=== PATIENT | male | born 1970 | race Caucasian/White ===

== ENCOUNTER 2018-04-25 14:09 | Inpatient (IN) | payer MEDICAID ==
[~2018-04-25] VITALS: Ht 177.8 cm; Wt 94.8 kg
[~2018-04-25 14:09] MED LIST: FLUO-201 PO; HYDR-4228 PO; HYDR50CA48 PO; MULT-893 PO; NIC10R INH; VENL75CA58 PO
--- NOTE | 2018-04-25 14:29 | ER Report ---
History and Physical Time Seen By MD: 14:29 Hx. of Stated Complaint: CONSTIPATION FOR 5 DAYS. N/V. NO HOME REMEDIES. HPI/ROS CHIEF COMPLAINT: No bowel movement for 5 days, abdominal pain and vomiting HISTORY OF PRESENT ILLNESS: This is a 47-year-old male. He came to the ER today because he has not had a bowel movement for 5 days. Prior to this his bowel movements had been normal until 2 days before the problem started he started having some diarrhea/liquid stools, and then bowel movements stopped 5 days ago. He is also not passing gas. His abdomen is distended. He is having constant hiccups. He has had a partial colectomy from Stage 4 colon cancer and has been cancer free for the last 6 years. He does have a chronic area of his abdomen that "pooches" out since his previous surgery. REVIEW OF SYSTEMS: Constitutional: No fever or chills. Cardiovascular: No chest pain. Respiratory: No shortness of breath. Genitourinary: No dysuria. No frequency Musculoskeletal: No musculoskeletal pain Skin: No rashes. Neurological: No numbness. Feels weak generally, no focal. Allergies: Coded Allergies: No Known Drug Allergies (Unverified , 02/11/17) Home Meds Reported Medications Venlafaxine Hcl (EFFEXOR XR) 75 Mg Cap.er.24h, 300 MG PO QDAY 02/11/17 Discontinued Reported Medications Nicotine (NICOTROL) 10 Mg/Inh Ctr, 10 MG INH Q2H Y for NICOTINE REPLACEMENT 02/21/17 Multivitamin (MULTIVITAMINS) 1 Each Tab.chew, 1 EACH PO DAILY, TAB.CHEW 02/21/17 Hydroxyzine Pamoate (HYDROXYZINE PAMOATE) 50 Mg Capsule, 100 MG PO DAILY, CAPSULE 02/11/17 Reviewed Nurses Notes: Yes Hx Smoking: Yes Smoking Status: Current: Every Day Smoker, Heavy Tobacco Smoker Exposure to Second Hand Smoke?: Yes Hx Substance Use Disorder: Yes Hx Alcohol Use: Yes Constitutional Vital Sign - Last 24 Hours 04/25/18 04/25/18 04/25/18 04/25/18 14:13 15:09 15:30 16:00 Temp 97.8 Pulse 113 102 101 Resp 18 B/P (MAP) 121/98 131/102 (112) 126/84 (98) 136/96 (109) Pulse Ox 97 90 93 04/25/18 04/25/18 04/25/18 16:30 17:00 17:30 Pulse 103 106 105 B/P (MAP) 128/94 (105) 128/98 (108) 121/90 (100) Pulse Ox 93 93 93 Physical Exam General Appearance: The patient is alert. He is in acute distress due to pain. Eyes: Pupils are equal, round. No pallor, injection or icterus. ENT: Mucous membranes are moist. Normal oral mucosa. Posterior oropharynx is normal. Neck: Supple and non tender. Respiratory: Lungs are clear to auscultation. Cardiovascular: Regular rate and rhythm. No murmurs, gallops or rubs. Normal capillary refill. Gastrointestinal: Abdomen is tender throughout, soft, but very distended. Abdominal wall hernias to the right of midline. Guarding, but no rebound noted. Hypoactive bowel sounds. Neurological: Alert and oriented x3. Skin: Warm and dry. No rashes. DIFFERENTIAL DIAGNOSIS: After history and physical exam, differential diagnosis was considered for abdominal pain with bloating, most consistent with L obstruction but would consider other bowel pathology including but not limited to constipation, gastroenteritis, colitis or other problem. Medical Decision Making Data Points Result Diagram: 04/26/18 0533 04/26/18 0533 Laboratory Hematology Test 04/25/18 14:50 Peripheral Blood Smear Yes Y/N Amylase Level 90 U/L (0-110) Lipase 278 U/L (23-300) Chemistry Test 04/25/18 14:50 Peripheral Blood Smear Yes Y/N Amylase Level 90 U/L (0-110) Lipase 278 U/L (23-300) EKG/Imaging Imaging ACUTE ABDOMEN SERIES 3 VIEW Indication: no bowel movement, distended, vomiting Comparison: None. Findings: The lungs are clear. Heart size and pulmonary vasculature are normal. There is abnormal distended loops of small bowel in the abdomen, greatest in the left upper quadrant. There is no free air. There are surgical clips overlying the abdomen. Bones are normal. IMPRESSION: 1. Dilated air-filled loops of small bowel, consistent with a small bowel obstruction. 2. No evidence of free air or perforation. 2. Clear lungs. Report Dictated By: Ho Lopez at 04/25/2018 3:48 PM EXAMINATION: CT abdomen without IV contrast CT pelvis without IV contrast HISTORY: Abdominal pain, suspect obstruction. History of colon cancer. COMPARISON: PET/CT from 04/28/2017 and abdominal radiographs from 04/25/2018. TECHNIQUE: Axial images were taken through the abdomen and pelvis without intravenous contrast. Sagittal and coronal reformatted images are also submitted. One of the following dose optimization techniques was utilized in the performance of this exam: Automated exposure control; adjustment of the mA and/ or kV according to the patient's size; or use of an iterative reconstruction technique. Specific details can be referenced in the facility's radiology CT exam operational policy. FINDINGS: Please note that without intravenous contrast, sensitivity to detection of parenchymal disease is limited. Liver/biliary: Numerous simple appearing hepatic cysts are similar to prior exam , the largest measuring 8.7 cm. Pancreas: Negative. Spleen: Negative. Adrenal glands: Negative. Kidneys: Small simple appearing bilateral renal cysts. Pelvic structures: Negative. Bowel: Postoperative changes of partial colectomy with several surgical clips in the left paracolic gutter. The stomach is mildly distended with fluid. There is progressive distention of small bowel loops from the proximal jejunum to the mid ileum. The small bowel loops contain fluid with multiple air-fluid levels. There is focal narrowing of a mid small bowel loop in the peritoneal compartment , deep to the larger ventral hernia (axial image 320 series 3). The small bowel loops distal to this point are also dilated, with a dilated loop entering the larger ventral hernia. There is no transition point at the neck of the hernia. The distal small bowel loops are decompressed. The colon is not distended. Peritoneum/retroperitoneum/mesenteries: Negative. Vessels: Atherosclerotic calcifications of the aorta and bilateral common iliac arteries. Musculoskeletal/body wall: Chronic compression fractures at T11, L1 and L4. There are 2 supraumbilical ventral abdominal wall hernias. The 1st hernia is smaller and more superior with the neck measuring 3.5 cm, and contains a nondilated small bowel loop. The larger hernia is eccentric to the right and has a neck measuring 7.5 cm, and contains dilated small bowel loops. Small amount of fluid below the small bowel loops in the larger ventral hernia. Lymph nodes: Negative. Lower chest: Negative. IMPRESSION: 1. Acute small bowel obstruction with focal narrowing of a mid small bowel loop deep to the larger, more inferior ventral hernia. Small bowel loops distal to the focal narrowing are also dilated, which could indicate obstruction due to an internal hernia. 2. Ventral abdominal wall hernias containing small bowel as described above. 3. Several simple hepatic cysts and renal cysts are unchanged. 4. Chronic compression fractures of T11, L1 and L4. These findings were discussed with DUANE MERINO at 04/25/2018 4:37 PM. Report Dictated By: Kassidy Quevedo MD at 04/25/2018 4:17 PM ED Course/Re-evaluation Clinical Indication for ER IV: Hydration, IV Access ED Course Initial abdominal series shows dilated loops of bowel, uncertain where these are. CT scan of the abdomen showed transition point at one of the ventral abdominal hernias in the small bowel with small bowel obstruction. Reviewed this with the patient and called and spoke with Dr. Mercado who came to the ER and evaluated the patient and will be admitting him. NG tube was placed. Patient had good pain relief with 4 mg of IV morphine. Decision to Disposition Date: Apr 25, 2018 Decision to Disposition Time: 17:00 Depart Departure Latest Vital Signs Vital Signs Date Time Temp Pulse Resp B/P (MAP) Pulse Ox O2 Delivery O2 Flow Rate FiO2 04/25/18 17:30 105 121/90 (100) 93 04/25/18 14:13 97.8 18 Impression: Primary Impression: SBO (small bowel obstruction) Condition: Condition Unchanged Disposition: Admitted from ER DUANE MERINO MD Apr 25, 2018 14:29
[2018-04-25] MEDS ORDERED: ONDANSETRON 4 MG/2 ML VIAL IVP ONE (14:40)
[2018-04-25] MEDS ORDERED: NS(*) 0.9% 1000 ML BAG 1,000 ML IV ONE (14:40)
[2018-04-25 14:58] LABS: PLATELET COUNT, AUTOMATED 483 K/uL (150-450)
[2018-04-25] MEDS ORDERED: MORPHINE 4 MG/ML SDV IVP ONE (15:05)
--- NOTE | 2018-04-25 15:54 | RADIOLOGY IMAGING REPORT ---
FACILITY: [facility] [place] PATIENT NAME: Cosmo Sarabia : 1970 MR: [id number] V: [id number] EXAM DATE: [id number] ORDERING PHYSICIAN: DUANE MERINO TECHNOLOGIST: Location: [facility] - [place], [place] Patient: Cosmo Sarabia : 1970 Visit/Account:[id number] Date of Sevice: 04/25/2018 ACUTE ABDOMEN SERIES 3 VIEW Indication: no bowel movement, distended, vomiting Comparison: None. Findings: The lungs are clear. Heart size and pulmonary vasculature are normal. There is abnormal distended loops of small bowel in the abdomen, greatest in the left upper quadrant. There is no free air. There are surgical clips overlying the abdomen. Bones are normal. IMPRESSION: 1. Dilated air-filled loops of small bowel, consistent with a small bowel obstruction. 2. No evidence of free air or perforation. 2. Clear lungs. Report Dictated By: Ho Lopez at 04/25/2018 3:48 PM Report E-Signed By: Ho Lopez at 04/25/2018 3:49 PM WSN:[id number]
--- NOTE | 2018-04-25 16:47 | RADIOLOGY IMAGING REPORT ---
FACILITY: [facility] [place] PATIENT NAME: Cosmo Sarabia : 1970 MR: [id number] V: [id number] EXAM DATE: [id number] ORDERING PHYSICIAN: DUANE MERINO TECHNOLOGIST: Location: [facility] - [place] Patient: Cosmo Sarabia : 1970 Visit/Account:[id number] Date of Sevice: 04/25/2018 EXAMINATION: CT abdomen without IV contrast CT pelvis without IV contrast HISTORY: Abdominal pain, suspect obstruction. History of colon cancer. COMPARISON: PET/CT from 04/28/2017 and abdominal radiographs from 04/25/2018. TECHNIQUE: Axial images were taken through the abdomen and pelvis without intravenous contrast. Sag ittal and coronal reformatted images are also submitted. One of the following dose optimization techniques was utilized in the performance of this exam: Autom ated exposure control; adjustment of the mA and/or kV according to the patient's size; or use of an i terative reconstruction technique. Specific details can be referenced in the facility's radiology C T exam operational policy. FINDINGS: Please note that without intravenous contrast, sensitivity to detection of parenchymal disease is jones ited. Liver/biliary: Numerous simple appearing hepatic cysts are similar to prior exam, the largest measuri ng 8.7 cm. Pancreas: Negative. Spleen: Negative. Adrenal glands: Negative. Kidneys: Small simple appearing bilateral renal cysts. Pelvic structures: Negative. Bowel: Postoperative changes of partial colectomy with several surgical clips in the left paracolic g utter. The stomach is mildly distended with fluid. There is progressive distention of small bowel loo ps from the proximal jejunum to the mid ileum. The small bowel loops contain fluid with multiple air- fluid levels. There is focal narrowing of a mid small bowel loop in the peritoneal compartment, deep to the larger ventral hernia (axial image 320 series 3). The small bowel loops distal to this point a re also dilated, with a dilated loop entering the larger ventral hernia. There is no transition point at the neck of the hernia. The distal small bowel loops are decompressed. The colon is not distended . Peritoneum/retroperitoneum/mesenteries: Negative. Vessels: Atherosclerotic calcifications of the aorta and bilateral common iliac arteries. Musculoskeletal/body wall: Chronic compression fractures at T11, L1 and L4. There are 2 supraumbilica l ventral abdominal wall hernias. The 1st hernia is smaller and more superior with the neck measuring 3.5 cm, and contains a nondilated small bowel loop. The larger hernia is eccentric to the right and has a neck measuring 7.5 cm, and contains dilated small bowel loops. Small amount of fluid below the small bowel loops in the larger ventral hernia. Lymph nodes: Negative. Lower chest: Negative. IMPRESSION: 1. Acute small bowel obstruction with focal narrowing of a mid small bowel loop deep to the larger, m ore inferior ventral hernia. Small bowel loops distal to the focal narrowing are also dilated, which could indicate obstruction due to an internal hernia. 2. Ventral abdominal wall hernias containing small bowel as described above. 3. Several simple hepatic cysts and renal cysts are unchanged. 4. Chronic compression fractures of T11, L1 and L4. These findings were discussed with DUANE MERINO at 04/25/2018 4:37 PM. Report Dictated By: Kassidy Quevedo MD at 04/25/2018 4:17 PM Report E-Signed By: Kassidy Quevedo MD at 04/25/2018 4:44 PM WSN:[id number]
[2018-04-25] MEDS ORDERED: ONDANSETRON 4 MG/2 ML VIAL IVP PRN (17:30)
[2018-04-25] MEDS ORDERED: KETOROLAC 30 MG/ML VIAL IVP PRN (17:30)
[2018-04-25] MEDS ORDERED: FLUSH 10 ML SYR IVP PRN (17:30)
[2018-04-25 18:14] VITALS: BP 135/105
--- NOTE | 2018-04-25 18:44 | RADIOLOGY IMAGING REPORT ---
FACILITY: [facility] [place] PATIENT NAME: Cosmo Sarabia : 1970 MR: [id number] V: [id number] EXAM DATE: [id number] ORDERING PHYSICIAN: DUANE MERINO TECHNOLOGIST: Location: [facility] - [place] Patient: Cosmo Sarabia : 1970 Visit/Account:[id number] Date of Sevice: 04/25/2018 Exam: KUB SINGLE VIEW ABDOMEN Indication: s/p NG placement, RAD Comparison: 04/25/2018 Findings: A nasogastric tube has been placed with catheter tip near the gastric fundus. There are persistently dilated loops of small bowel present within the left upper quadrant. Gas and s tool is seen within the colon. IMPRESSION: 1. Nasogastric tube placement within the stomach. Report Dictated By: Baltazar Palma at 04/25/2018 6:39 PM Report E-Signed By: Baltazar Palma at 04/25/2018 6:40 PM WSN:[id number]
[2018-04-25] MEDS: NS(*) 0.9% 1000 ML BAG 1,000 ML IV PRN (18:59)
--- NOTE | 2018-04-25 19:49 | Gen Surgery History & Physical ---
History of Present Illness Chief Complaint Nausea and vomiting History of Present Illness 47-year-old gentleman presents to the emergency room with a for 5 days of abdominal distention with nausea and vomiting. No flatus or bowel movements in the last 4 days. He has a history of colon cancer, he says stage IV colon cancer but when I reviewed the oncologist noted looks more like stage III with a synchronous colon cancer. I don't see any evidence of metastatic disease. His cancer was treated 6 years ago and he reports that he has been in remission since. He has not had any other abdominal surgeries other than his colon resection 6 years ago. The cancer was involving his transverse and sigmoid colons. CT scan in the emergency room was consistent with a small bowel obstruction. He has no previous history of small bowel obstructions. Incidentally noted was several ventral hernias adjacent to each other in the abdominal midline. The inferior most one is the largest. It is suggested on the CT that this may be potentially the cause of the obstruction. History Problems: (1) Colon cancer Status: Resolved (2) Depression Status: Chronic (3) Adjustment disorder with depressed mood Status: Chronic Home Meds Reported Medications Venlafaxine Hcl (EFFEXOR XR) 75 Mg Cap.er.24h, 300 MG PO QDAY 02/11/17 Discontinued Reported Medications Nicotine (NICOTROL) 10 Mg/Inh Ctr, 10 MG INH Q2H Y for NICOTINE REPLACEMENT 02/21/17 Multivitamin (MULTIVITAMINS) 1 Each Tab.chew, 1 EACH PO DAILY, TAB.CHEW 02/21/17 Hydroxyzine Pamoate (HYDROXYZINE PAMOATE) 50 Mg Capsule, 100 MG PO DAILY, CAPSULE 02/11/17 Allergies: Coded Allergies: No Known Drug Allergies (Unverified , 02/11/17) Review of Systems All Systems Reviewed/Normal: Yes, Except as Noted Gastrointestinal: Nausea, Vomiting, Abdominal Pain Exam General Appearance: Alert, Awake, No Acute Distress, Afebrile Neuro: No Gross deficits Eyes: PERRLA GI: Other (his abdomen is distended. I can palpate the largest hernia and I'm able to reduce the contents of the hernia with little problems. He has a well- healed midline vertical incision as well as an incision in his left mid abdomen that is also well healed. No peritoneal signs. No palpable mass.) Extremities: Warm, Perfused Medical Decision Making Data Points Result Diagram: 04/25/18 1450 04/25/18 1450 Assessment and Plan Problems: (1) SBO (small bowel obstruction) Status: Acute Assessment & Plan: 04/25/18: This is his 1st small bowel obstruction. The ventral/incisional hernia is reducible so if this was the cause of the obstruction, he should improve fairly rapidly. Adhesions are also a strong possibility given his history of colon resection for colon cancer. We will start managing this conservatively with NG tube decompression and bowel rest as well as IV fluids. He seems to be very dehydrated based on his labs and so we' ll resuscitate him with crystalloid. If he fails to improve after 48-72 hours then he may need surgical exploration. I have explained this plan to him in great detail and he seems to understand and seems agreeable with this plan. We' ll start Lovenox for DVT prophylaxis and Protonix for GI prophylaxis. We will use intermittent Dilaudid as well as when necessary IV Tylenol and Toradol for pain control. Condition Stable Time Spent: < 30 min Venous Thromboembolism VTE Risk Physician Assess for VTE Risk: Yes Patient's VTE Risk: Low VTE Diagnostic Test 2 Days Prior to Admit: No Antithrombotics Is Pt On Any Antithrombotics?: No BEATRIZ FERNANDEZ MD Apr 25, 2018 19:49
[2018-04-25 19:57] VITALS: BP 131/101
[2018-04-25] MEDS ORDERED: LR(*) 1000 ML BAG 1,000 ML IV ONE (22:35)
[2018-04-25 23:47] VITALS: BP 121/91
[2018-04-26 03:02] VITALS: BP 127/93
[2018-04-26] MEDS: NS(*) 0.9% 1000 ML BAG 1,000 ML IV PRN (05:47)
[2018-04-26 05:52] LABS: PLATELET COUNT, AUTOMATED 344 K/uL (150-450)
[2018-04-26] MEDS ORDERED: NS(*) 0.9% 1000 ML BAG 1,000 ML IV PRN (06:34)
--- NOTE | 2018-04-26 07:01 | General Surgery Progress Note ---
Subjective Progress Notes Subjective Feeling better. No pain currently. Main complaint is hiccups. Physical Exam Vital Signs Date Time Temp Pulse Resp B/P (MAP) Pulse Ox O2 Delivery O2 Flow Rate FiO2 04/26/18 03:02 97.9 91 16 127/93 (104) 91 Room Air General Appearance: Alert, Awake, No Acute Distress, Afebrile GI: Soft and Non-Tender (Hernia is soft and reducible) Extremities: Warm, Perfused Result Diagram: 04/26/18 0533 04/26/18 0533 Assessment and Plan Problems: (1) SBO (small bowel obstruction) Status: Acute Assessment & Plan: 04/25/18: This is his 1st small bowel obstruction. The ventral/incisional hernia is reducible so if this was the cause of the obstruction, he should improve fairly rapidly. Adhesions are also a strong possibility given his history of colon resection for colon cancer. We will start managing this conservatively with NG tube decompression and bowel rest as well as IV fluids. He seems to be very dehydrated based on his labs and so we' ll resuscitate him with crystalloid. If he fails to improve after 48-72 hours then he may need surgical exploration. I have explained this plan to him in great detail and he seems to understand and seems agreeable with this plan. We' ll start Lovenox for DVT prophylaxis and Protonix for GI prophylaxis. We will use intermittent Dilaudid as well as when necessary IV Tylenol and Toradol for pain control. 04/26/18: Doing better clinically. No flatus or BM yet. KUB unchanged. Continue resuscitation, bowel rest and decompression, IV fluids. Pain control, pulmonary hygiene, lovenox, PPI. Condition Stable. Time Spent: < 30 min Exam Sepsis Risk: Severe Sepsis Risk BEATRIZ FERNANDEZ MD Apr 26, 2018 07:01
--- NOTE | 2018-04-26 07:04 | RADIOLOGY IMAGING REPORT ---
FACILITY: [facility] PATIENT NAME: Cosmo Sarabia : 1970 MR: [id number] V: [id number] EXAM DATE: ORDERING PHYSICIAN: BEATRIZ FERNANDEZ TECHNOLOGIST: Location: [facility] - [place] Patient: Cosmo Sarabia : 1970 Visit/Account:[id number] Date of Sevice: 04/26/2018 KUB SINGLE VIEW ABDOMEN COMPARISONS: Views of the abdomen dated April 25, 2018 ADDITIONAL PERTINENT HISTORY: Small bowel obstruction. FINDINGS: Lung bases: Negative. Supine evidence of free air: None. Bowel gas pattern: Continued dilated loops of bowel in the left upper quadrant. Continued presence of an NG tube with its tip in the proximal portion of the stomach. Surrounding soft tissues and solid organs: Negative. Osseous structures: Negative. IMPRESSION: No significant change since previous exam with continued dilated loops of bowel in the l eft upper quadrant. Report Dictated By: Riaz Herr MD at 04/26/2018 6:59 AM Report E-Signed By: Riaz Herr MD at 04/26/2018 7:01 AM WSN:[id number]
[2018-04-26 07:39] VITALS: BP 130/83
[2018-04-26] MEDS: ENOXAPARIN 40 MG/0.4ML SYR SC SCH (08:25)
[2018-04-26] MEDS: KCL/DNS 20 MEQ/1000 ML PREMIX 1,000 ML IV SCH ×3 (08:26→21:00)
[2018-04-26] MEDS: PANTOPRAZOLE SOD 40 MG IV VIAL IVP SCH (08:26)
--- NOTE | 2018-04-26 10:50 | Medical Nutrition Therapy ---
Nutrition Anthropometrics Height (Inches): 70.00 Height (Calculated Centimeters: 177.527042 Weight (Pounds): 194 Weight (Calculated Kilograms): 88.110 Abram Nutrition Score: Adequate Abram Nutrition Risk Score: 18 Dietary Referral Nutrition Risk Factors: Nutrition Risk Comment: Physical Findings Physical Appearance: Overweight BMI 25-29 Skin Appearance Skin Appearance: Edema Edema Location Modifier: Edema Location: Type of Edema: Degree of Edema: Gastrointestinal Symptoms GI Symtoms: Bloating, Change in Bowel Pattern Tube Present: NG Bowel Sounds: Recent Bowel Pattern: Constipated Stool Characteristics: Nutritional Diagnosis Nutritional Risk Acuity 1: GI Obstruction Past Medical History: Colon CA Nutritional Acuity: 1-High Nutrition Diagnosis: Altered GI Function Nutrition Etiology: Physiological Causes Nutrition Problem/Etiology/Sym: AEB SBO Energy Requirement: 2280 (M- St jeor) Protein Requirement: 88 (1gm/kg) Fluid Requirement: 2640 (30ml/kg) Diet Type: NPO (Nothing by Mouth) Nutrition Intervention: Incr diet as tolerated Nutrition Monitoring & Eval Nutrition Goals: Eat 75-100% Meal RD Patient Assessment Time: [address] Assessment Type: RD Assessment Patient Nutrition Acuity: 1-High Follow Up Date: Apr 28, 2018 Nutritional Comment: 04/26 Pt currently NPo for SBO. Pt recieving NG suction. No flatus or bowel sounds at this time. reports pt is dehydrated. Pt cont elevated H/H, BUN, creatinine. Alb WNR at 4.6. Recommend nutrition support if NPO > 3 days. SIM TORRES Apr 26, 2018 10:50
[2018-04-26 11:05] VITALS: BP 125/80
[2018-04-26 14:45] VITALS: BP 122/69
[2018-04-26 19:19] VITALS: BP 124/68
[2018-04-26 23:39] VITALS: BP 117/65
[2018-04-27 02:37] VITALS: BP 114/73
[2018-04-27 05:59] LABS: PLATELET COUNT, AUTOMATED 266 K/uL (150-450)
--- NOTE | 2018-04-27 06:27 | RADIOLOGY IMAGING REPORT ---
[place] [facility] [place] Cosmo Sarabia : 1970 MR: [id number] V: [id number] EXAM DATE: [id number] ORDERING PHYSICIAN: BEATRIZ FERNANDEZ TECHNOLOGIST: Location: [facility] Patient: Cosmo Sarabia : 1970 Visit/Account:[id number] Date of Sevice: 04/27/2018 KUB SINGLE VIEW ABDOMEN COMPARISONS: Views of the abdomen dated April 26, 2018 ADDITIONAL PERTINENT HISTORY: Small bowel obstruction FINDINGS: Lung bases: Not imaged. Supine evidence of free air: None. Bowel gas pattern: Interval removal of an NG tube. Improved but persistent dilated loops of bowel in the midabdomen. Surrounding soft tissues and solid organs: Surgical clips involving the left midabdomen and lower abd omen along the midline. Osseous structures: Negative. IMPRESSION: 1. Findings compatible with an improving small bowel obstruction. Report Dictated By: Riaz Herr MD at 04/27/2018 6:22 AM Report E-Signed By: Riaz Herr MD at 04/27/2018 6:23 AM WSN:[id number]
--- NOTE | 2018-04-27 06:52 | General Surgery Progress Note ---
Subjective Progress Notes Subjective Feeling better. Passed "a little" flatus overnight. No pain. No N/V. Physical Exam Vital Signs Date Time Temp Pulse Resp B/P (MAP) Pulse Ox O2 Delivery O2 Flow Rate FiO2 04/27/18 02:37 79 16 114/73 (87) 93 Room Air 04/26/18 19:19 97.7 General Appearance: Alert, Awake, No Acute Distress, Afebrile GI: Soft and Non-Tender (Mildly distended, incisional hernia is soft and easily reducible) Extremities: Warm, Perfused Result Diagram: 04/27/18 0544 04/27/18 0544 Assessment and Plan Problems: (1) SBO (small bowel obstruction) Status: Acute Assessment & Plan: 04/25/18: This is his 1st small bowel obstruction. The ventral/incisional hernia is reducible so if this was the cause of the obstruction, he should improve fairly rapidly. Adhesions are also a strong possibility given his history of colon resection for colon cancer. We will start managing this conservatively with NG tube decompression and bowel rest as well as IV fluids. He seems to be very dehydrated based on his labs and so we' ll resuscitate him with crystalloid. If he fails to improve after 48-72 hours then he may need surgical exploration. I have explained this plan to him in great detail and he seems to understand and seems agreeable with this plan. We' ll start Lovenox for DVT prophylaxis and Protonix for GI prophylaxis. We will use intermittent Dilaudid as well as when necessary IV Tylenol and Toradol for pain control. 04/26/18: Doing better clinically. No flatus or BM yet. KUB unchanged. Continue resuscitation, bowel rest and decompression, IV fluids. Pain control, pulmonary hygiene, lovenox, PPI. 04/27/18: Seems to be improving. KUB with improving but still dilated loops of small bowel. Will get a water soluble SBFT today. NG tube removed last night at patient request after warning him that it may have to be replaced if his obstruction worsens. Continue bowel rest, IV fluids, etc. Condition Stable. Time Spent: < 30 min Exam Sepsis Risk: No Definite Risk BEATRIZ FERNANDEZ MD Apr 27, 2018 06:52
[2018-04-27] MEDS: KCL (*) 20 MEQ/100 ML PREMIX 100 ML IV SCH ×2 (07:02→10:40)
[2018-04-27 07:03] VITALS: BP 107/59
[2018-04-27] MEDS ORDERED: DIATRIZOATE MEGL/DIATRIZOA SOD 120 ML SOLN PO ONE (08:10)
[2018-04-27] MEDS: ENOXAPARIN 40 MG/0.4ML SYR SC SCH (08:37)
[2018-04-27] MEDS: VENLAFAXINE XR 75 MG CAPCR PO SCH (08:37)
[2018-04-27] MEDS: PANTOPRAZOLE SOD 40 MG IV VIAL IVP SCH (08:37)
[2018-04-27] MEDS: KCL/DNS 20 MEQ/1000 ML PREMIX 1,000 ML IV SCH ×2 (09:41→17:39)
[2018-04-27 10:41] VITALS: BP 138/84
[2018-04-27] MEDS: HYDROmorphone HCL 2 MG/ML SDV IVP PRN ×2 (13:22→21:13)
[2018-04-27 15:34] VITALS: BP 140/88
[2018-04-27 19:11] VITALS: BP 142/97
--- NOTE | 2018-04-27 19:59 | RADIOLOGY IMAGING REPORT ---
FACILITY: [facility] [place] PATIENT NAME: Cosmo Sarabia : 1970 MR: [id number] V: [id number] EXAM DATE: [id number] ORDERING PHYSICIAN: BEATRIZ FERNANDEZ TECHNOLOGIST: Location: [facility] Patient: Cosmo Sarabia : 1970 Visit/Account:[id number] Date of Sevice: 04/27/2018 Exam: SMALL BOWEL SERIES Indication: SBO, water soluble contrast only please, RAD Comparison: CT 04/25/2018 Findings: 240 mL of Gastrografin was given orally and images obtained at 15 minutes, 1 hour, 4 hours and 8.5 hours Findings are consistent with persistent high-grade partial small bowel obstruction likely within the mid ileum. There are moderately to severe dilated loops of small bowel measuring upwards of 5 to 6 cm in diameter. There is no opacification of the colon but gas is present. There is no evidence of pneu moperitoneum.. IMPRESSION: 1. Findings are consistent with persistent high-grade partial small bowel obstruction. Significantly dilated loops of small bowel are noted throughout the abdomen measuring upwards of 5 to 6 cm in diam eter. Some gas is noted within the colon. Report Dictated By: Baltazar Palma at 04/27/2018 7:51 PM Report E-Signed By: Baltazar Palma at 04/27/2018 7:56 PM WSN:[id number]
[2018-04-27 23:06] VITALS: BP 152/98
[2018-04-28] VITALS (54 sets, daily range): BP systolic 73–176; BP diastolic 48–115
[2018-04-28] MEDS: PROMETHAZINE 25 MG/ML 1 ML AMP IVP PRN ×2 (01:20→10:22)
[2018-04-28] MEDS: KCL/DNS 20 MEQ/1000 ML PREMIX 1,000 ML IV SCH ×3 (02:20→22:09)
[2018-04-28] MEDS: HYDROmorphone HCL 2 MG/ML SDV IVP PRN (02:54)
[2018-04-28 05:43] LABS: PLATELET COUNT, AUTOMATED 306 K/uL (150-450)
--- NOTE | 2018-04-28 06:23 | RADIOLOGY IMAGING REPORT ---
FACILITY: [facility] PATIENT NAME: Cosmo Sarabia : 1970 MR: [id number] V: [id number] EXAM DATE: ORDERING PHYSICIAN: BEATRIZ FERNADNEZ TECHNOLOGIST: Location: [facility] [place] Patient: Cosmo Sarabia : 1970 Visit/Account:[id number] Date of Sevice: 04/28/2018 KUB SINGLE VIEW ABDOMEN COMPARISONS: Single view of the abdomen dated April 27, 2018 ADDITIONAL PERTINENT HISTORY: Small bowel obstruction FINDINGS: Lung bases: Not imaged Supine evidence of free air: None. Bowel gas pattern: Continued dilated loops of small bowel in the upper abdomen minimally decreased in size from previous exam. Surrounding soft tissues and solid organs: Surgical clips over the mid abdomen. Osseous structures: Negative. IMPRESSION: 1. Minimal decrease in size of dilated loops of small bowel again consistent with an underlying small bowel obstruction. 2. No other new findings from previous exam. Report Dictated By: Riaz Herr MD at 04/28/2018 6:17 AM Report E-Signed By: Riaz Herr MD at 04/28/2018 6:18 AM [id number]
--- NOTE | 2018-04-28 07:27 | General Surgery Progress Note ---
Subjective Progress Notes Subjective Abdominal pain and bloating. Emesis x2 overnight. No flatus or BMs, even after water-soluble SBFT yesterday. Physical Exam Vital Signs Date Time Temp Pulse Resp B/P (MAP) Pulse Ox O2 Delivery O2 Flow Rate FiO2 04/28/18 04:47 75 22 90 Oxy Mask 2.5 04/28/18 03:18 98.3 General Appearance: Alert, Awake, No Acute Distress, Afebrile Neuro: No Gross deficits Eyes: PERRLA GI: Other (soft, very distended, hernia soft but protruding. Diffuse abdominal TTP. No peritoneal signs.) Extremities: Warm, Perfused Result Diagram: 04/28/1851804/28/18518 Assessment and Plan Problems: (1) SBO (small bowel obstruction) Status: Acute Assessment & Plan: 04/25/18: This is his 1st small bowel obstruction. The ventral/incisional hernia is reducible so if this was the cause of the obstruction, he should improve fairly rapidly. Adhesions are also a strong possibility given his history of colon resection for colon cancer. We will start managing this conservatively with NG tube decompression and bowel rest as well as IV fluids. He seems to be very dehydrated based on his labs and so we' ll resuscitate him with crystalloid. If he fails to improve after 48-72 hours then he may need surgical exploration. I have explained this plan to him in great detail and he seems to understand and seems agreeable with this plan. We' ll start Lovenox for DVT prophylaxis and Protonix for GI prophylaxis. We will use intermittent Dilaudid as well as when necessary IV Tylenol and Toradol for pain control. 04/26/18: Doing better clinically. No flatus or BM yet. KUB unchanged. Continue resuscitation, bowel rest and decompression, IV fluids. Pain control, pulmonary hygiene, lovenox, PPI. 04/27/18: Seems to be improving. KUB with improving but still dilated loops of small bowel. Will get a water soluble SBFT today. NG tube removed last night at patient request after warning him that it may have to be replaced if his obstruction worsens. Continue bowel rest, IV fluids, etc. 04/28/18: No improvement, worse since SBFT. Contrast has not passed obstruction. Will proceed with ex-lap today to look for cause of obstruction and treat it. Will also need to address the hernia(s) and how I do this depends on whether bowel resection is necessary. I have explained surgery, alternatives, risks, recovery to the patient and his questions have been answered. He would like to proceed with surgery. Will place central line as well so we can start TPN postop. Condition Stable. Time Spent: < 30 min Exam Sepsis Risk: Sepsis Risk BEATRIZ FERNANDEZ MD Apr 28, 2018 07:27
[2018-04-28] MEDS: VENLAFAXINE XR 75 MG CAPCR PO SCH (08:28)
[2018-04-28] MEDS: ENOXAPARIN 40 MG/0.4ML SYR SC SCH (08:29)
[2018-04-28] MEDS: PANTOPRAZOLE SOD 40 MG IV VIAL IVP SCH (08:29)
[2018-04-28] MEDS ORDERED: NORMOSOL R SOLN(*) 1000 ML BAG 1,000 ML IV ONE (09:25)
--- NOTE | 2018-04-28 12:47 | Medical Nutrition Therapy ---
Nutrition Anthropometrics Height (Inches): 70.00 Height (Calculated Centimeters: 177.796654 Weight (Pounds): 198 Weight (Calculated Kilograms): 89.925 BMI: 28.4 Abram Nutrition Score: Adequate Abram Nutrition Risk Score: 20 Dietary Referral Nutrition Risk Factors: Nutrition Risk Comment: Physical Findings Physical Appearance: Overweight BMI 25-29 Skin Appearance Skin Appearance: Edema Edema Location Modifier: Edema Location: Type of Edema: Degree of Edema: Gastrointestinal Symptoms GI Symtoms: Nausea, Vomiting, Bloating, Change in Bowel Pattern Tube Present: Bowel Sounds: Recent Bowel Pattern: Constipated Stool Characteristics: Nutritional Diagnosis Nutritional Risk Acuity 1: GI Obstruction Past Medical History: Colon CA Nutritional Acuity: 1-High Nutrition Diagnosis: Altered GI Function Nutrition Etiology: Physiological Causes Nutrition Problem/Etiology/Sym: AEB SBO Energy Requirement: 2280 (M- St jeor) Protein Requirement: 88 (1gm/kg) Fluid Requirement: 2640 (30ml/kg) Diet Type: NPO (Nothing by Mouth) Nutrition Intervention: Incr diet as tolerated Nutritional Support Current Enteral / Parental: TPN Rate: 75 ml/hr Clinimex 5% AA / 20% Dex plus 250 ml lipids Current Duration: 24 Current Calories: 1584 Current Protein: 90 Current Lipids Calories: 500 Total Current Calories: 2084 Recommended Enteral / Parental: TPN Recommended Rate: 80 ml/hr Clinimex 5% AA / 20% Dex plus 250 ml lipids Recommended Duration: 24 Recommended Calories: 1690 Recommended Protein: 96 Recommended Lipids Calories: 500 Total Recommended Calories: 2190 Nutrition Monitoring & Eval RD Patient Assessment Time: [address] Assessment Type: RD Assessment Patient Nutrition Acuity: 1-High Follow Up Date: Apr 29, 2018 Nutritional Comment: 04/26 Pt currently NPo for SBO. Pt recieving NG suction. No flatus or bowel sounds at this time. Dr reports pt is dehydrated. Pt cont elevated H/H, BUN, creatinine. Alb WNR at 4.6. Recommend nutrition support if NPO > 3 days. 04/28 Pt has agreed to surgery per note. Bowel function indicates hypoactive, no flatus and very distended - SOB not resolved. Pt to start TPN this afternoon following procedure. Current rate Clinimex 5/15% 75ml/hr which will provide 91% kcal and 98% protein needs. Recommend changing to Clinimex 5/15% 83ml/hr to provide 100% kcal and 113% protein needs. Labs indicate very low K 2.9, Glucose 160 down from 237. BUN 34. Will monitor TPN and labs for any changes. - BRENDA CHARLES Apr 28, 2018 12:44
[2018-04-28] MEDS ORDERED: LIDOCAINE/SOD BICARB 8.4% SYR ID ONE (13:50)
[2018-04-28] MEDS ORDERED: ROPIVACAINE 0.5% 20 ML VIAL ONE (14:45)
[2018-04-28] MEDS ORDERED: DEXAMETHASONE SOD PHOS 10MG/ML ONE (14:49)
[2018-04-28] MEDS ORDERED: ROCURONIUM BROM 10 MG/ML 10 ML ONE (14:49)
[2018-04-28] MEDS ORDERED: SUCCINYLCHOL CHL 200MG/10ML VL ONE (14:49)
[2018-04-28] MEDS ORDERED: PROPOFOL EMUL(*) 10MG/ML 20 ML 40 ML ONE (14:49)
[2018-04-28] MEDS ORDERED: ONDANSETRON 4 MG/2 ML VIAL ONE (14:49)
[2018-04-28] MEDS ORDERED: fentaNYL CITR 250 MCG/5 ML AMP ONE (14:50)
[2018-04-28] MEDS ORDERED: AMPICILLIN/SULBACT (*) 3 GM VL 3 GM in NS(*) 0.9% 100 ML BAG 100 ML IVPB ONE (14:50)
[2018-04-28] MEDS ORDERED: GELATIN SPONGE SZ 100 ONE (17:52)
[2018-04-28] MEDS ORDERED: CELLULOSE HEMOSTAT 1 EACH PKT OP-SITE ONE ×2 (17:55→17:58)
[2018-04-28] MEDS ORDERED: FLUSH 10 ML SYR IVP PRN (19:45)
[2018-04-28] MEDS ORDERED: MIDAZOLAM 50 MG/10 ML VIAL 100 MG in NS(*) 0.9% 100 ML BAG 80 ML IV PRN (19:47)
[2018-04-28] MEDS ORDERED: [UNRECOGNIZED DRUG - OTHER] IV ONE (20:00)
[2018-04-28] MEDS ORDERED: NS(*) 0.9% 1000 ML BAG 1,000 ML ONE (20:06)
--- NOTE | 2018-04-28 20:18 | Hospitalist Consultation ---
History of Present Illness Requesting Physician Dr. Calderón Reason for Consult Manage ventilator, ICU Chief Complaint Abdominal pain/SBO History of Present Illness The patient is a 47 year old male admitted on 04/25 with abdominal pain. He was found to have a small bowel obstruction. He failed conservative treatment and was taken to the OR today. During intubation the patient apparently vomited bile and aspirated. Dr. Calderón then performed a bronchoscopy to clean out the aspirated materials. An exploratory laparotomy was then performed with adhesion lysis, liver biopsy and abdominal hernia repair. The patient was brought to the ICU intubated for observation overnight due to his episode of aspiration. 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 (4) Colon cancer Status: Resolved (5) Depression Status: Chronic (6) SBO (small bowel obstruction) Status: Acute Home Meds Reported Medications Venlafaxine Hcl (EFFEXOR XR) 75 Mg Cap.er.24h, 300 MG PO QDAY 02/11/17 Discontinued Reported Medications Nicotine (NICOTROL) 10 Mg/Inh Ctr, 10 MG INH Q2H Y for NICOTINE REPLACEMENT 02/21/17 Multivitamin (MULTIVITAMINS) 1 Each Tab.chew, 1 EACH PO DAILY, TAB.CHEW 02/21/17 Hydroxyzine Pamoate (HYDROXYZINE PAMOATE) 50 Mg Capsule, 100 MG PO DAILY, CAPSULE 02/11/17 Allergies: Coded Allergies: No Known Drug Allergies (Unverified , 02/11/17) Other Social/Family Hx The patient is single. He uses a Vape pen, drinks alcohol and occasionally smokes marijuana. He is disabled. Hx Smoking: Yes (States he uses a "vape pen") Smoking Status: Current: Every Day Smoker, Heavy Tobacco Smoker Exposure to Second Hand Smoke?: Yes Caffeine Intake: Coffee, Soda Caffeine/Cups Per Day: 6+ Hx Alcohol Use: Yes Hx Substance Use Disorder: Yes Social Drug Use: Occasional Social Drugs: Marijuana Amount Of Social Drug/s Used: Uses occasionally to help with anxiety Review of Systems Other Unable to do ROS as patient intubated and sedated. Exam Vital Signs Vital Signs Date Time Temp Pulse Resp B/P (MAP) Pulse Ox O2 Delivery O2 Flow Rate FiO2 04/28/18 11:23 98.3 97 16 144/99 (114) 84 Oxy Mask 2.0 General Appearance: Other (Intubated, sedated.) Neuro: Other (Sedated. Moves all 4 exremeties) Cardiovascular: Other (Tachy, regular.) Respiratory: Other (Tachypneic. Coarse breath sounds without rhonchi or significant wheezing.) GI: Other (Abdomen with central surgical wound with dressing in place. BS +.) Extremities: Warm, Perfused, Other (No edema.) Integumentary: Other (Midline abdominal surgical wound.) Psych: Other (Sedated.) Medical Decision Making Data Points Result Diagram: 04/28/1851804/28/18518 EKG / Imaging Monitor Interpretation: Sinus Tachycardia Imaging Per Dr. Calderón, post op CXR shows ET tube and central line to be appropriately positioned. Pre-Admit Course Medical Record Review: Yes Assessment and Plan Problems: (1) SBO (small bowel obstruction) Status: Acute Assessment & Plan: S/P exploratory laparotomy with adhesion lysis, liver biopsy and abdominal hernia repair. Will keep him sedated and ventilated in ICU. Currently on the vent, SIMV at 14 BPM with PEEP of 5 and PS of 10. TV is 500. Will check ABGs and adjust vent as needed. He is on propofol and Versed for sedation. (2) Depression Status: Chronic Assessment & Plan: The patient has been on Effexor XR which is currently held due to SBO/surgery. 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 (4) Colon cancer Status: Resolved Assessment & Plan: Resolved. He did have liver nodules noted during the exploratory lap and a liver biopsy was done. Time Spent on Plan of Care: < 30 min Venous Thromboembolism Antithrombotics Is Pt On Any Antithrombotics?: No Exam Sepsis Risk: No Definite Risk YOANA SALVADOR MD Apr 28, 2018 20:17
--- NOTE | 2018-04-28 20:22 | RADIOLOGY IMAGING REPORT ---
FACILITY: [facility] PATIENT NAME: Cosmo Sarabia : 1970 MR: [id number] V: [id number] EXAM DATE: ORDERING PHYSICIAN: YOANA SALVADOR TECHNOLOGIST: Location: [facility] Patient: Cosmo Sarabia : 1970 Visit/Account:[id number] Date of Sevice: 04/28/2018 CHEST SINGLE AP INDICATION: Intubated COMPARISON: None available FINDINGS: Heart size within normal limits. Endotracheal tube terminates at the thoracic inlet. Right-sided IJ c entral line terminates at the atrial caval junction. There is a left lower lobe consolidation present . Patchy atelectasis versus consolidation is present at the right lung base. There is no pneumothorax or pleural effusion. IMPRESSION: 1. Large consolidation involving left lower lobe and small consolidation involving the right lower lo be. 2. Endotracheal tube and central line are properly positioned Report Dictated By: Baltazar Palma at 04/28/2018 8:17 PM Report E-Signed By: Baltazar Palma at 04/28/2018 8:18 PM WSN:[id number]
--- NOTE | 2018-04-28 20:41 | Post Operative Progress Note ---
Post Operative Progress Note Date: Apr 28, 2018 Time: 20:15 Surgeon: Stephane Dictation number: [id number] Anesthesia: GETA by Dr. Duran Pre-Op Diagnosis: Small Bowel Obstruction Post-Op Diagnosis: MARLENA Aspiration Findings: Pt vomited after induction before intubation. Not much bile in airways on bronchoscopy. Transition point in mid-small bowel due to adhesive band and small bowel stricture Multiple abdominal wall hernias Procedure(s): 1) Bronchoscopy 2) Central line placement in right IJ 3) Exploratory laparotomy 4) Adhesiolysis 5) Small bowel resection with reanastomosis 6) Liver wedge biopsy 7) Unroofing of liver cyst 8) Repair of multiple abdominal wall hernias, without mesh Specimen Removed:(May be N/A): Small bowel Complications: None Fluids: 3L of crystalloid UOP: 1L Estimated Blood Loss: 50mL Date OP Note Dictated: Apr 28, 2018 Time OP Note Dictated: 20:21 BEATRIZ FERNANDEZ MD Apr 28, 2018 20:41
[2018-04-28] MEDS ORDERED: NS(*) 0.9% 500 ML BAG 500 ML ONE (20:53)
--- NOTE | 2018-04-28 21:45 | OPERATIVE REPORT 1 ---
EVENT DATE: April 28, 2018 SURGEON: River Calderón MD ANESTHESIOLOGIST: Umer Duran MD ANESTHESIA: General endotracheal anesthesia. PREOPERATIVE DIAGNOSIS Persistent small-bowel obstruction. POSTOPERATIVE DIAGNOSIS Persistent small-bowel obstruction. PROCEDURES PERFORMED 1. Bronchoscopy. 2. Central line placement in right internal jugular. 3. Exploratory laparotomy. 4. Adhesiolysis. 5. Small bowel resection with reanastomosis. 6. Primary repair of multiple abdominal wall hernias without mesh. 7. Liver wedge biopsy. 8. Liver cyst unroofing. COMPLICATIONS None. CONDITION Stable. BLOOD LOSS 18 mL URINE OUTPUT 1 L INTRAVENOUS FLUIDS Crystalloid 3 L. SPECIMENS Small bowel. INDICATIONS This is a 47-year-old gentleman with a previous history of stage III colon cancer with apparently two synchronous colon cancers. They were resected, and then he underwent chemotherapy and has apparently been in remission. He has been doing well up until about four days prior to admission when he started experiencing increased abdominal pain, abdominal bloating, nausea, and vomiting. This brought him into the ER where he was found to have a small- bowel obstruction. I admitted him to my service. I managed him conservatively with NG tube decompression and bowel rest, as well as IV fluids and pain control. He seemed to get better, although his KUB still revealed dilated small bowel loops. He was demanding to have his NG tube removed, and so two days ago, I removed the NG tube. Yesterday, he underwent a small bowel follow- through which revealed evidence apparent to be a high-grade small-bowel obstruction, and so I gave him overnight, and he still did not pass the contrast. This morning, he was no better, and so I consented him for an exploratory laparotomy to address his small-bowel obstruction. I also told him that I would like to put a central line in so we can start parenteral nutrition , and he agreed with that as well. DESCRIPTION OF PROCEDURE The patient was brought to the operating room and placed supine on the operating table. RSI intubation was planned due to his bowel obstruction, but just after induction, but prior to intubation, he vomited several hundred milliliters of bilious fluid. The anesthesiologist worked very hard to suction out his mouth and airway and quickly got him intubated. At this point, I went ahead and performed a bronchoscopy. I looked at all of his airways on both the right and the left, mainly the secondary and tertiary bronchi, and I copiously irrigated out his airways with sterile water, and all of this was suctioned out. There was very little bile in the airways, and that which I did see was easily suctioned out. I again irrigated out his airways. The bronchoscope was withdrawn, and then I proceeded to place a right internal jugular vein central line using standard sterile Seldinger technique. This was completed also using the ultrasound to identify the internal jugular vein, and it was completed without any problems. His abdomen was then prepped and draped in a sterile fashion, and another timeout was completed, which had already been completed prior to bronchoscopy and central line placement. I then made a vertical midline incision to the left of the umbilicus from just below the umbilicus to the epigastrium. I dissected through the dermis and into the subcutaneous fat using electrocautery until I identified the midline fascia. He had several abdominal wall hernias that were seen on the CT scan. I had reduced these after he was asleep to minimize risk of bowel injury. Getting into the abdomen after the incision was made was somewhat challenging as there were a lot of adhesions in the midline. I did slowly make my way through the midline fascia and was ultimately able to safely get in the abdomen without bowel injury. There were a lot of adhesions to the midline, and these were taken down until I broke into free peritoneal cavity lateral to the midline adhesions. There were not a lot of abdominal wall adhesions lateral to midline, but there were quite a few interloop adhesions. Once I had all the adhesions cleared away, I ran the bowel from the ligament of Treitz distally until I encountered a transition point which was a thick, dense adhesive band going to the posterior abdominal cavity, and this was easily divided. At this point, I saw succus coming out of a hole in the small bowel adjacent to this band. I am not sure where this came from. There were no obvious intestinal injuries during the dissection at all. I do not know if the adhesive band somehow was adherent to the small bowel. The area around the hole in the small bowel was whitish in color and almost looked like what you would see with an anterior duodenal or gastric ulcer. We were quick to suction out the ulcer and isolate the small bowel loop and these bowel clamps to prevent further enteric contamination. I then identified healthy-appearing bowel proximal and distal to this and then made holes in the mesentery in this area and used the CAMDEN 75 mm stapler with blue loads and divided the bowel proximal and distal to this. I used the Harmonic scalpel to then divide the mesentery between the divided bowel and then passed the specimen off the field. I then laid the bowel side by side so it was in a side- to-side functional end-to-end type of anastomosis. I made an enterotomy on both sides and then used the CAMDEN 75 mm stapler with a blue load and created the [id number] anastomosis. I closed the conjoined enterotomy with an inner layer of running 4-0 Monocryl sutures. I then oversewed the entire suture and staple line with interrupted 3-0 Vicryl Lembert-type sutures. I closed the mesenteric defect with running 3-0 Vicryl sutures. I then copiously irrigated the entire abdomen in all quadrants with 5 L of warm saline. I made sure I removed all the saline from each quadrant. As I was putting my hand over the liver and palpating the liver, it felt very nodular. In fact, there were tiny little nodules that were suspicious to me to be liver seeds of possibly metastatic disease given this patient's history of colon cancer. I then proceeded to remove a small wedge of liver to send to Pathology. This confirmed the presence of metastatic disease. The patient had a large liver cyst just under the surface, and this fluid was being evacuated from the cyst in the process of performing the wedge biopsy. I then unroofed the cyst to allow it to continue to drain. There was some bleeding from the liver edge which was controlled with cautery, and then I packed the cyst with Gelfoam and then covered the top of this with Surgicel to coat the edges of the divided liver and then covered this with Magda hemostatic powder. It was completely hemostatic when this was finished. At this point, happy with how everything looked and reinspecting the anastomosis which laid in a very natural position without tension and with good blood flow, I then milked all of the enteric contents back up to the stomach, and we suctioned about with the NG tube. We had evacuated 3 L of enteric and gastric contents during the surgery. I then turned my attention to the abdominal wall and identified the three most pertinent hernias, including the large one just to the right of midline. I pulled in the peritoneum and removed the peritoneum from these, that is, the hernia sacs from these hernias. I then on the two smaller ones closed them with 0 Prolene sutures. The biggest one I incorporated in the midline closure. I closed the midline with a running #1 Prolene suture. It closed without any problems. I made very small bites so as to distribute the tension over many suture throes. I then irrigated and dried the midline wound and then closed the skin with lalo. I placed a Prevena VAC dressing over this. We attempted to awaken the patient, and he was really breathing pretty good through the endotracheal tube without any PEEP or pressure support, but he would not wake up enough to respond to commands, and so we elected to go ahead and re-sedate him, bring him into the Intensive Care Unit, and give him overnight to wake up. He otherwise physiologically tolerated the procedure without any problems. CONNOR
[2018-04-28] MEDS: AMPICILLIN/SULBACT (*) 3 GM VL 3 GM in NS(*) 0.9% 100 ML BAG 100 ML IVPB SCH (22:07)
[2018-04-28] MEDS: PROPOFOL(*)1000 MG/100 ML VIAL 100 ML IV PRN ×2 (22:08→23:33)
[2018-04-28] MEDS: FAT EMULSION 20% 250 ML BAG 250 ML IVPB SCH (22:09)
[2018-04-28] MEDS: NS(*) 0.9% 500 ML BAG 500 ML IV PRN (23:44)
[2018-04-28] MEDS: ORAL SUCTION/CHLORHX/SWAB KIT MT SCH (23:47)
[2018-04-29] VITALS (95 sets, daily range): BP systolic 78–108; BP diastolic 47–71
[2018-04-29] MEDS: AMPICILLIN/SULBACT (*) 3 GM VL 3 GM in NS(*) 0.9% 100 ML BAG 100 ML IVPB SCH ×4 (03:09→20:52)
[2018-04-29] MEDS ORDERED: IV BOLUS 500 ML IVSOL IV ONE ×2 (03:20→06:30)
[2018-04-29] MEDS: KCL/DNS 20 MEQ/1000 ML PREMIX 1,000 ML IV SCH ×2 (04:31→13:07)
[2018-04-29] MEDS: HYDROmorphone HCL 2 MG/ML SDV IVP PRN ×4 (04:31→23:33)
[2018-04-29] MEDS: PROPOFOL(*)1000 MG/100 ML VIAL 100 ML IV PRN (04:31)
[2018-04-29] MEDS: NS(*) 0.9% 500 ML BAG 500 ML IV PRN ×2 (04:31→17:31)
[2018-04-29 05:38] LABS: PLATELET COUNT, AUTOMATED 196 K/uL (150-450)
[2018-04-29] MEDS ORDERED: NS(*) 0.9% 1000 ML BAG 1,000 ML IV ONE (06:35)
--- NOTE | 2018-04-29 07:07 | RADIOLOGY IMAGING REPORT ---
FACILITY: [facility] [place] PATIENT NAME: Cosmo Sarabia : 1970 MR: [id number] V: [id number] EXAM DATE: ORDERING PHYSICIAN: BEATRIZ FERNANDEZ TECHNOLOGIST: Location: [facility] Patient: Cosmo Sarabia : 1970 Visit/Account:[id number] Date of Sevice: 04/29/2018 CHEST SINGLE AP Additional pertinent History: Intubated COMPARISON STUDIES: 04/28/2018 FINDINGS: Support lines and catheters: ET tube reidentified 6 cm from the emiliano. Right IJ in the mid SVC. EKG wire leads Lungs and Pleura: Persistent unchanged patchy infiltrative change in the right lower lung. Distinct improvement in what had been a greater degree of parenchymal opacity in the left lower lung. Heart and vasculature: Negative. Muriel and Mediastinum: Negative. Bones and Chest wall: Negative. Upper Abdomen: Negative. IMPRESSION: 1. Stable right lower lung parenchymal opacity. Distinct improvement in the degree of opacity in left lower lung. Stable catheters and tubes Report Dictated By: Myron Day MD at 04/29/2018 7:01 AM Report E-Signed By: Myron Day MD at 04/29/2018 7:04 AM [id number]
--- NOTE | 2018-04-29 07:53 | Hospitalist Progress Note ---
Subjective Progress Notes Subjective Sedated on ventilator. BPs have been on low side. RR now in high 20s. Physical Exam Vital Signs Date Time Temp Pulse Resp B/P (MAP) Pulse Ox O2 Delivery O2 Flow Rate FiO2 04/29/18 07:38 50.0 04/29/18 07:30 107 28 87/57 (67) 96 04/29/18 07:15 Mechanical Ventilator 04/29/18 06:15 100.0 04/28/18 11:23 2.0 General Appearance: Other (sedated on ventilator) Cardiovascular: Other (slightly tachycardic) Respiratory: Other (scattered coarse breath sounds bilaterally) Result Diagram: 04/29/18 0515 04/29/18 0515 Monitor Interpretation: Sinus Tachycardia Assessment and Plan Problems: (1) SBO (small bowel obstruction) Status: Acute Assessment & Plan: S/P exploratory laparotomy with adhesion lysis, liver biopsy and abdominal hernia repair. He is currently sedated and on ventilator in ICU. Will increase TV and pressure support slightly. Will check ABG in ~1 hour and adjust ventilator further as needed. He is on propofol and Versed for sedation, but has had some hypotension, which seems to be exacerbated by the propofol. Will try to wean off the propofol and increase the Versed as needed. (2) Depression Status: Chronic Assessment & Plan: The patient has been on Effexor XR which is currently held due to SBO/surgery. 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 (4) Colon cancer Status: Resolved Assessment & Plan: Resolved. He did have liver nodules noted during the exploratory lap and a liver biopsy was done. (5) Elevated glucose Status: Acute Assessment & Plan: Will adjust insulin in TPN (or use SQ SSI). Exam Sepsis Risk: Sepsis Risk MARA SALVADOR MD Apr 29, 2018 07:53
[2018-04-29] MEDS: PANTOPRAZOLE SOD 40 MG IV VIAL IVP SCH (08:58)
[2018-04-29] MEDS: ENOXAPARIN 40 MG/0.4ML SYR SC SCH (08:59)
[2018-04-29] MEDS: ORAL SUCTION/CHLORHX/SWAB KIT MT SCH ×2 (09:00→20:52)
[2018-04-29] MEDS ORDERED: LR(*) 1000 ML BAG 1,000 ML IV ONE (09:35)
--- NOTE | 2018-04-29 09:38 | General Surgery Progress Note ---
Subjective Progress Notes Subjective Intubated/sedated Physical Exam Vital Signs Date Time Temp Pulse Resp B/P (MAP) Pulse Ox O2 Delivery O2 Flow Rate FiO2 04/29/18 09:15 95 Mechanical Ventilator 50.0 04/29/18 08:49 100.4 04/29/18 08:00 107 04/29/18 07:46 28 04/29/18 07:30 87/57 (67) 04/28/18 11:23 2.0 General Appearance: Other (Intubated/sedated) GI: Other (Soft, prevena vac dressing is in place with good seal.) Extremities: Warm, Perfused Result Diagram: 04/29/18 0515 04/29/18 0515 Monitor Interpretation: Sinus Tachycardia Assessment and Plan Problems: (1) SBO (small bowel obstruction) Status: Acute Assessment & Plan: 04/25/18: This is his 1st small bowel obstruction. The ventral/incisional hernia is reducible so if this was the cause of the obstruction, he should improve fairly rapidly. Adhesions are also a strong possibility given his history of colon resection for colon cancer. We will start managing this conservatively with NG tube decompression and bowel rest as well as IV fluids. He seems to be very dehydrated based on his labs and so we' ll resuscitate him with crystalloid. If he fails to improve after 48-72 hours then he may need surgical exploration. I have explained this plan to him in great detail and he seems to understand and seems agreeable with this plan. We' ll start Lovenox for DVT prophylaxis and Protonix for GI prophylaxis. We will use intermittent Dilaudid as well as when necessary IV Tylenol and Toradol for pain control. 04/26/18: Doing better clinically. No flatus or BM yet. KUB unchanged. Continue resuscitation, bowel rest and decompression, IV fluids. Pain control, pulmonary hygiene, lovenox, PPI. 04/27/18: Seems to be improving. KUB with improving but still dilated loops of small bowel. Will get a water soluble SBFT today. NG tube removed last night at patient request after warning him that it may have to be replaced if his obstruction worsens. Continue bowel rest, IV fluids, etc. 04/28/18: No improvement, worse since SBFT. Contrast has not passed obstruction. Will proceed with ex-lap today to look for cause of obstruction and treat it. Will also need to address the hernia(s) and how I do this depends on whether bowel resection is necessary. I have explained surgery, alternatives, risks, recovery to the patient and his questions have been answered. He would like to proceed with surgery. Will place central line as well so we can start TPN postop. 04/29/18: POD#1 s/p bronchoscopy, ex-lap, small bowel resection, primary repair of several abdominal wall hernias, liver biopsy, central line placement. Stable overnight but hyperdynamic with mild tachycardia and mild fevers. Likely aspirated bile after induction. Will keep intubated today and let him physiologically recover. Will continue fluid recuscitation today. Continue IV abx, unasyn and vanco. Continue TPN. PPI and lovenox for prophylaxis. Will get PT/OT to see him once extubated. Condition Critical Time Spent: < 30 min Exam Sepsis Risk: Severe Sepsis Risk BEATRIZ FERNANDEZ MD Apr 29, 2018 09:38
[2018-04-29] MEDS: ACETAMINOPHEN(*)1000 MG/100 ML 100 ML IVPB PRN ×2 (10:40→16:50)
[2018-04-29] MEDS: MIDAZOLAM 50 MG/10 ML VIAL 250 MG in NS(*) 0.9% 250 ML BAG 200 ML IV PRN (11:14)
[2018-04-29] MEDS ORDERED: ALBUMIN HUMAN 5% 250 ML BTL 250 ML IVPB ONE (11:45)
[2018-04-29] MEDS: INSULIN HUM LISPRO 100 UN/ML 3 ML VIAL SUBQ PRN (13:36)
[2018-04-29] MEDS: FAT EMULSION 20% 250 ML BAG 250 ML IVPB SCH (16:01)
[2018-04-29] MEDS ORDERED: KCL/DNS 20 MEQ/1000 ML PREMIX 1,000 ML IV SCH (19:35)
[2018-04-29] MEDS ORDERED: [UNRECOGNIZED DRUG - OTHER] IV SCH (20:00)
[2018-04-29] MEDS ORDERED: [UNRECOGNIZED DRUG - OTHER] IV SCH (20:00)
--- NOTE | 2018-04-29 21:37 | Medical Nutrition Therapy ---
Nutrition Anthropometrics Height (Inches): 70.00 Height (Calculated Centimeters: 177.585213 Weight (Pounds): 199 Weight (Calculated Kilograms): 90.265 BMI: 28.4 Abram Nutrition Score: Adequate Abram Nutrition Risk Score: 14 Dietary Referral Nutrition Risk Factors: Nutrition Risk Comment: Physical Findings Physical Appearance: Overweight BMI 25-29 Skin Appearance Skin Appearance: Edema Edema Location Modifier: Edema Location: Type of Edema: Degree of Edema: Gastrointestinal Symptoms GI Symtoms: Nausea, Vomiting, Bloating, Change in Bowel Pattern Tube Present: NG Bowel Sounds: Recent Bowel Pattern: Constipated Stool Characteristics: Nutrition/Food History N/V Nutritional Diagnosis Nutritional Risk Acuity 1: TPN/PPN, GI Obstruction Past Medical History: Colon CA Nutritional Acuity: 1-High Nutrition Diagnosis: Altered GI Function Nutrition Etiology: Physiological Causes Nutrition Problem/Etiology/Sym: AEB SBO Energy Requirement: 2280 (M- St jeor) Protein Requirement: 88 (1gm/kg) Fluid Requirement: 2640 (30ml/kg) Diet Type: NPO (Nothing by Mouth), TPN/PPN Nutrition Intervention: Incr diet as tolerated Nutritional Support Current Enteral / Parental: TPN Rate: 75 ml/hr Clinimex 5% AA / 20% Dex plus 250 ml lipids Current Duration: 24 Current Calories: 1584 Current Protein: 90 Current Lipids Calories: 500 Total Current Calories: 2084 Recommended Enteral / Parental: TPN Recommended Rate: 80 ml/hr Clinimex 5% AA / 20% Dex plus 250 ml lipids Recommended Duration: 24 Recommended Calories: 1690 Recommended Protein: 96 Recommended Lipids Calories: 500 Total Recommended Calories: 2190 Nutrition Monitoring & Eval RD Patient Assessment Time: [address] Assessment Type: RD Re-Assessment Patient Nutrition Acuity: 1-High Follow Up Date: May 01, 2018 Nutritional Comment: 04/26 Pt currently NPo for SBO. Pt recieving NG suction. No flatus or bowel sounds at this time. Dr reports pt is dehydrated. Pt cont elevated H/H, BUN, creatinine. Alb WNR at 4.6. Recommend nutrition support if NPO > 3 days. 04/28 Pt has agreed to surgery per note. Bowel function indicates hypoactive, no flatus and very distended - SOB not resolved. Pt to start TPN this afternoon following procedure. Current rate Clinimex 5/15% 75ml/hr which will provide 91% kcal and 98% protein needs. Recommend changing to Clinimex 5/15% 83ml/hr to provide 100% kcal and 113% protein needs. Labs indicate very low K 2.9, Glucose 160 down from 237. BUN 34. Will monitor TPN and labs for any changes. - RB 04/29 POD#1 for small bowel resection, repair of abdominal wall hernias, adhesion lysis. Low H/H, Alb 2.2, Low Ca+, Glu 146k, High Na+. Continues with TPN Clinimix E 5-20% at 75mL/hr with 250 mL/day of Intralipid 20%. Pt also receiving propofol for sedation which contributes 1.1 kcals/mL as fat. Monitor clinical progression, labs, etc. -NIRU PADRON Apr 29, 2018 21:37
[2018-04-30] VITALS (96 sets, daily range): BP systolic 87–173; BP diastolic 58–101
[2018-04-30] MEDS: INSULIN HUM LISPRO 100 UN/ML 3 ML VIAL SUBQ PRN ×2 (00:11→17:57)
[2018-04-30] MEDS: MIDAZOLAM 50 MG/10 ML VIAL 250 MG in NS(*) 0.9% 250 ML BAG 200 ML IV PRN ×3 (01:24→19:56)
[2018-04-30] MEDS: HYDROmorphone HCL 2 MG/ML SDV IVP PRN ×7 (02:23→23:32)
[2018-04-30] MEDS: AMPICILLIN/SULBACT (*) 3 GM VL 3 GM in NS(*) 0.9% 100 ML BAG 100 ML IVPB SCH ×4 (03:34→21:01)
[2018-04-30 06:48] LABS: PLATELET COUNT, AUTOMATED 168 K/uL (150-450)
[2018-04-30] MEDS: PANTOPRAZOLE SOD 40 MG IV VIAL IVP SCH (08:48)
[2018-04-30] MEDS: ENOXAPARIN 40 MG/0.4ML SYR SC SCH (08:48)
[2018-04-30] MEDS: ORAL SUCTION/CHLORHX/SWAB KIT MT SCH ×2 (08:49→21:01)
--- NOTE | 2018-04-30 09:30 | Hospitalist Progress Note ---
Subjective Progress Notes Subjective This patient was admitted for a small bowel obstruction and had an aspiration event at the time of surgery. Patient Complains of: Cardiovascular: No: Chest Pain Respiratory: Congestion, Shortness of Breath Physical Exam Vital Signs Date Time Temp Pulse Resp B/P (MAP) Pulse Ox O2 Delivery O2 Flow Rate FiO2 04/30/18 08:13 100.0 04/30/18 08:13 104 28 04/30/18 07:45 90 Mechanical Ventilator 04/30/18 06:30 100.4 107/69 (82) 04/28/18 11:23 2.0 Neuro: Other (Sedated to RASS -3.) Eyes: PERRLA Cardiovascular: Regular Rate and Rhythm Respiratory: Other (Bilateral breath sounds present.) GI: Soft and Non-Tender Extremities: No Edema Integumentary: No Cyanosis Result Diagram: 04/30/1851704/30/18517 Item Value Date Time Arterial Blood pH 7.40 04/30/18517 Arterial Blood Partial Pressure CO2 39 mmHg H 04/30/18517 Arterial Blood Partial Pressure O2 79 mmHg 04/30/18517 Arterial Blood HCO3 24 mmol/L 04/30/18517 Arterial Blood Oxygen Saturation 95 % 04/30/18517 Imaging Chest x-ray reviewed. Monitor Interpretation: Sinus Tachycardia Assessment and Plan Problems: (1) Aspiration pneumonia Assessment & Plan: He did have an aspiration event prior to surgery. A bronchoscopy was performed immediately after to wash out the airways. He has developed bilateral infiltrates on his chest x-ray. We do have him on empiric treatment with Unasyn. His WBC is elevated and he was febrile overnight. (2) Acute respiratory failure Assessment & Plan: He has remained intubated since surgery. He is receiving midazolam for sedation. He continues to require 100% FIO2, but his airway pressure are not significantly elevated. We will leave him on SIMV today. (3) Hyperglycemia Assessment & Plan: He has developed hyperglycemia with the TPN. We do have him on sliding scale level #2. (4) SBO (small bowel obstruction) Status: Acute Assessment & Plan: He did undergo exploratory laparotomy with adhesion lysis, liver biopsy and abdominal hernia repair. (5) Depression Status: Chronic Assessment & Plan: He is on chronic treatment with Effexor XR, which is currently on hold. 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 (7) Colon cancer Status: Resolved Assessment & Plan: Resolved. He did have liver nodules noted during the exploratory lap and a liver biopsy was done. Exam Sepsis Risk: Sepsis Risk BEATRIZ PEREZ DO Apr 30, 2018 09:30
--- NOTE | 2018-04-30 10:13 | General Surgery Progress Note ---
Subjective Progress Notes Subjective Intubated/sedated Physical Exam Vital Signs Date Time Temp Pulse Resp B/P (MAP) Pulse Ox O2 Delivery O2 Flow Rate FiO2 04/30/18 09:56 100.0 04/30/18 09:41 100.6 04/30/18 09:30 105 26 113/70 (84) 87 Mechanical Ventilator 04/28/18 11:23 2.0 General Appearance: Other (Intubated/sedated) GI: Other (Soft, prevena vac dressing is in place with good seal) Extremities: Warm, Perfused Result Diagram: 04/30/1851704/30/18517 Monitor Interpretation: Sinus Tachycardia Assessment and Plan Problems: (1) SBO (small bowel obstruction) Status: Acute Assessment & Plan: 04/25/18: This is his 1st small bowel obstruction. The ventral/incisional hernia is reducible so if this was the cause of the obstruction, he should improve fairly rapidly. Adhesions are also a strong possibility given his history of colon resection for colon cancer. We will start managing this conservatively with NG tube decompression and bowel rest as well as IV fluids. He seems to be very dehydrated based on his labs and so we' ll resuscitate him with crystalloid. If he fails to improve after 48-72 hours then he may need surgical exploration. I have explained this plan to him in great detail and he seems to understand and seems agreeable with this plan. We' ll start Lovenox for DVT prophylaxis and Protonix for GI prophylaxis. We will use intermittent Dilaudid as well as when necessary IV Tylenol and Toradol for pain control. 04/26/18: Doing better clinically. No flatus or BM yet. KUB unchanged. Continue resuscitation, bowel rest and decompression, IV fluids. Pain control, pulmonary hygiene, lovenox, PPI. 04/27/18: Seems to be improving. KUB with improving but still dilated loops of small bowel. Will get a water soluble SBFT today. NG tube removed last night at patient request after warning him that it may have to be replaced if his obstruction worsens. Continue bowel rest, IV fluids, etc. 04/28/18: No improvement, worse since SBFT. Contrast has not passed obstruction. Will proceed with ex-lap today to look for cause of obstruction and treat it. Will also need to address the hernia(s) and how I do this depends on whether bowel resection is necessary. I have explained surgery, alternatives, risks, recovery to the patient and his questions have been answered. He would like to proceed with surgery. Will place central line as well so we can start TPN postop. 04/29/18: POD#1 s/p bronchoscopy, ex-lap, small bowel resection, primary repair of several abdominal wall hernias, liver biopsy, central line placement. Stable overnight but hyperdynamic with mild tachycardia and mild fevers. Likely aspirated bile after induction. Will keep intubated today and let him physiologically recover. Will continue fluid recuscitation today. Continue IV abx, unasyn and vanco. Continue TPN. PPI and lovenox for prophylaxis. Will get PT/OT to see him once extubated. 04/30/18: POD#2. Tachycardic and hypoxic. Physiologic response to surgery and likely bile aspiration and now with likely chemical pneumonitis. Will increase PEEP to 10. CVP up to 15, could consider diuresis especially given fluffy appearance of lungs on CXR this morning. May also consider steroids for pneumonitis but he has an anastomosis and healing of this could be adversely affected by steroids. ABG is improving and base deficit is now normal. Will continue intubation/mech. ventilation until his inflammatory response improves and then, hopefully tomorrow, on POD#3 when he should start mobilizing 3rd spaced fluids, we can help him diurese and dry his lungs out a little, as much as his cardiovascular system will tolerate. Continue TPN, lovenox, PPI, IV abx. Central Venous Access Medical Necessity for Access: Hemodynamic Monitoring, IV Access, Medication Administration Condition Critical Time Spent: < 30 min Exam Sepsis Risk: Sepsis Risk BEATRIZ FERNANDEZ MD Apr 30, 2018 10:13
[2018-04-30] MEDS: [UNRECOGNIZED DRUG - OTHER] IV SCH (11:54)
[2018-04-30] MEDS ORDERED: KETAMINE HCL 200 MG/20 ML MDV IVP ONE (13:10)
[2018-04-30] MEDS ORDERED: KETAMINE HCL 200 MG/20 ML MDV IVP PRN (13:20)
--- NOTE | 2018-04-30 15:06 | RADIOLOGY IMAGING REPORT ---
FACILITY: [facility] PATIENT NAME: Cosmo Sarabia : 1970 MR: [id number] V: [id number] EXAM DATE: ORDERING PHYSICIAN: CHAMP ENGEL TECHNOLOGIST: Location: [facility] Patient: Cosmo Sarabia : 1970 Visit/Account:[id number] Date of Sevice: 04/30/2018 CHEST SINGLE AP Indication: ET tube placement.. Comparison: 04/29/2018. Findings: Endotracheal tube is in place. Right IJ catheter is in place tip in SVC and unchanged. There is worsening interstitial and alveolar infiltrates seen in both lower lobes. Upper lungs are re latively clear. No pneumothorax or pleural effusion. Upper abdomen is unremarkable. No acute bony abnormality. IMPRESSION: 1. ET tube is in good position. No pneumothorax. 2. Worsening bilateral lower lobe infiltrates. Report Dictated By: Rio Topete at 04/30/2018 3:01 PM Report E-Signed By: Rio Topete at 04/30/2018 3:02 PM WSN:[id number]
--- NOTE | 2018-04-30 15:25 | Miscellaneous Provider Note ---
Miscellaneous Provider Note Note This patient developed an air leak around the endotracheal tube earlier today. We did have anesthesia change out his tube for a larger diameter. He did have some respiratory distress during the procedure, but had improved ventilator compliance once we increased his sedation and temporarily paralyzed him. He is now tolerating the ventilator without paralytics and maintaining adequate oxygenation. BEATRIZ PEREZ DO Apr 30, 2018 15:25
[2018-04-30] MEDS: FAT EMULSION 20% 250 ML BAG 250 ML IVPB SCH (15:32)
[2018-04-30] MEDS ORDERED: ROCURONIUM BROM 10 MG/ML 5 ML IVP ONE (16:20)
[2018-04-30] MEDS ORDERED: MIDAZOLAM 1 MG/1 ML 10 ML IVP ONE ×2 (16:20→16:25)
[2018-04-30] MEDS: ACETAMINOPHEN(*)1000 MG/100 ML 100 ML IVPB PRN (16:53)
--- NOTE | 2018-04-30 20:30 | Miscellaneous Provider Note ---
Miscellaneous Provider Note Note The patient is not well sedated on Versed alone and is fighting the vent. Saturations have dropped. BPs are better with fluid resuscitation. Will restart propofol and watch BPs. YOANA SALVADOR MD Apr 30, 2018 20:30
[2018-04-30] MEDS: PROPOFOL(*)1000 MG/100 ML VIAL 100 ML IV PRN (21:08)
[2018-04-30] MEDS: NS(*) 0.9% 500 ML BAG 500 ML IV PRN (21:16)
[2018-05-01] VITALS (96 sets, daily range): BP systolic 89–116; BP diastolic 56–78
[2018-05-01] MEDS: [UNRECOGNIZED DRUG - OTHER] IV SCH ×2 (01:26→14:43)
[2018-05-01] MEDS: PROPOFOL(*)1000 MG/100 ML VIAL 100 ML IV PRN ×5 (02:47→21:10)
[2018-05-01] MEDS: AMPICILLIN/SULBACT (*) 3 GM VL 3 GM in NS(*) 0.9% 100 ML BAG 100 ML IVPB SCH (02:50)
[2018-05-01] MEDS: HYDROmorphone HCL 2 MG/ML SDV IVP PRN ×2 (02:50→09:25)
[2018-05-01 05:47] LABS: PLATELET COUNT, AUTOMATED 172 K/uL (150-450)
--- NOTE | 2018-05-01 07:06 | RADIOLOGY IMAGING REPORT ---
FACILITY: [facility] [place] PATIENT NAME: Cosmo Sarabia : 1970 MR: [id number] V: [id number] EXAM DATE: ORDERING PHYSICIAN: BEATRIZ PEREZ TECHNOLOGIST: Location: [facility] Patient: Cosmo Sarabia : 1970 Visit/Account:[id number] Date of Sevice: 05/01/2018 CHEST SINGLE AP Additional pertinent History: Pneumonia COMPARISON STUDIES: 04/30/2018 FINDINGS: Support lines and catheters: Right IJ. ET tube extending down to within 1.3 cm a chronic. ET tube antony uld be withdrawn approximately 3 cm. Lungs and Pleura: Persistent bibasilar parenchymal alveolar opacities. Increasing background of inte rstitial parenchymal opacity overlying likely representing a worsening pulmonary edema pattern. Heart and vasculature: Heart is enlarged.. Central vasculature appears to be slightly more engorged with perihilar interstitial pulmonary edema suspected Muriel and Mediastinum: Negative. Bones and Chest wall: Negative. Upper Abdomen: Negative. IMPRESSION: 1. 1. Increasing appearance of what appears to be a worsening pulmonary edema superimposed upon the prev iously seen and described bibasilar parenchymal opacities which are relatively stable in appearance. 2. ET tube should be withdrawn approximately 3 cm. Report Dictated By: Myron Day MD at 05/01/2018 6:59 AM Report E-Signed By: Myron Day MD at 05/01/2018 7:03 AM WSN:[id number]
[2018-05-01] MEDS ORDERED: FUROSEMIDE 20 MG/2 ML VIAL IVP ONE (07:40)
--- NOTE | 2018-05-01 07:44 | General Surgery Progress Note ---
Subjective Progress Notes Subjective Intubated/sedated Physical Exam Vital Signs Date Time Temp Pulse Resp B/P (MAP) Pulse Ox O2 Delivery O2 Flow Rate FiO2 05/01/18 06:30 99.9 89 23 95/66 (76) 91 Mechanical Ventilator 95.0 04/28/18 11:23 2.0 General Appearance: Other (Intubated/sedated) GI: Other (Soft, prevena vac dressing is in place with good seal.) Extremities: Warm, Perfused Result Diagram: 05/01/18 0534 05/01/18 0534 Monitor Interpretation: Sinus Tachycardia Assessment and Plan Problems: (1) SBO (small bowel obstruction) Status: Acute Assessment & Plan: 04/25/18: This is his 1st small bowel obstruction. The ventral/incisional hernia is reducible so if this was the cause of the obstruction, he should improve fairly rapidly. Adhesions are also a strong possibility given his history of colon resection for colon cancer. We will start managing this conservatively with NG tube decompression and bowel rest as well as IV fluids. He seems to be very dehydrated based on his labs and so we' ll resuscitate him with crystalloid. If he fails to improve after 48-72 hours then he may need surgical exploration. I have explained this plan to him in great detail and he seems to understand and seems agreeable with this plan. We' ll start Lovenox for DVT prophylaxis and Protonix for GI prophylaxis. We will use intermittent Dilaudid as well as when necessary IV Tylenol and Toradol for pain control. 04/26/18: Doing better clinically. No flatus or BM yet. KUB unchanged. Continue resuscitation, bowel rest and decompression, IV fluids. Pain control, pulmonary hygiene, lovenox, PPI. 04/27/18: Seems to be improving. KUB with improving but still dilated loops of small bowel. Will get a water soluble SBFT today. NG tube removed last night at patient request after warning him that it may have to be replaced if his obstruction worsens. Continue bowel rest, IV fluids, etc. 04/28/18: No improvement, worse since SBFT. Contrast has not passed obstruction. Will proceed with ex-lap today to look for cause of obstruction and treat it. Will also need to address the hernia(s) and how I do this depends on whether bowel resection is necessary. I have explained surgery, alternatives, risks, recovery to the patient and his questions have been answered. He would like to proceed with surgery. Will place central line as well so we can start TPN postop. 04/29/18: POD#1 s/p bronchoscopy, ex-lap, small bowel resection, primary repair of several abdominal wall hernias, liver biopsy, central line placement. Stable overnight but hyperdynamic with mild tachycardia and mild fevers. Likely aspirated bile after induction. Will keep intubated today and let him physiologically recover. Will continue fluid recuscitation today. Continue IV abx, unasyn and vanco. Continue TPN. PPI and lovenox for prophylaxis. Will get PT/OT to see him once extubated. 04/30/18: POD#2. Tachycardic and hypoxic. Physiologic response to surgery and likely bile aspiration and now with likely chemical pneumonitis. Will increase PEEP to 10. CVP up to 15, could consider diuresis especially given fluffy appearance of lungs on CXR this morning. May also consider steroids for pneumonitis but he has an anastomosis and healing of this could be adversely affected by steroids. ABG is improving and base deficit is now normal. Will continue intubation/mech. ventilation until his inflammatory response improves and then, hopefully tomorrow, on POD#3 when he should start mobilizing 3rd spaced fluids, we can help him diurese and dry his lungs out a little, as much as his cardiovascular system will tolerate. Continue TPN, lovenox, PPI, IV abx. 05/01/18: POD#3. Improved HR. Pressures in high 90s systolic but now on propofol gtt for improved sedation/comfort. SaO2 in low 90s on 95%fiO2 and PEEP 10. CVP 8 this morning. Discussed with Hospitalist service. Will gently diurese him today and see how his BP tolerates this. Hopefully with help dry his lungs out and improve oxygenation/ventilation. Fluid status much improved, should start mobilizing 3rd space fluid today, already with increased UOP. Continue intubation/mech ventilation until pulmonary status improves. Continue TPN, lovenox, PPI, IV abx. Hospitalist changing abx coverage from unasyn to primaxin/vanco. Continue ICU care. Central Venous Access Medical Necessity for Access: Hemodynamic Monitoring, IV Access, Medication Administration Condition Stable. Time Spent: < 30 min Exam Sepsis Risk: No Definite Risk BEATRIZ FERNANDEZ MD May 01, 2018 07:44
[2018-05-01] MEDS: MIDAZOLAM 50 MG/10 ML VIAL 250 MG in NS(*) 0.9% 250 ML BAG 200 ML IV PRN (08:35)
--- NOTE | 2018-05-01 08:38 | Hospitalist Progress Note ---
Subjective Progress Notes Subjective Sedated on ventilator. Physical Exam Vital Signs Date Time Temp Pulse Resp B/P (MAP) Pulse Ox O2 Delivery O2 Flow Rate FiO2 05/01/18 06:30 99.9 89 23 95/66 (76) 91 Mechanical Ventilator 95.0 04/28/18 11:23 2.0 General Appearance: Other (sedated/intubated on ventilator) ENT: Other (ET/OG tubes in place) Cardiovascular: Regular Rate and Rhythm Respiratory: Other (scattered rhonchi/coarse breath sounds) Extremities: Warm, Perfused, Edema (trace) Result Diagram: 05/01/1853305/01/18 05 Item Value Date Time Oxygen Liters/Minute 95 05/01/18 05 Shin Test Acceptable 05/01/18 05 Arterial Blood Base Excess 2.0 mmol/L 05/01/18 05 Arterial Blood Oxygen Saturation 94 % 05/01/18 05 Arterial Blood HCO3 26 mmol/L 05/01/18 05 Arterial Blood Partial Pressure O2 70 mmHg 05/01/18 05 Arterial Blood Partial Pressure CO2 36 mmHg 05/01/18 0534 Arterial Blood pH 7.46 H 05/01/18 0534 Blood Gas Patient Temperature 99.5 DEGREES 05/01/18 05 Blood Gas Puncture Site Right radial 05/01/18 05 Monitor Interpretation: Normal Sinus Rhythm Assessment and Plan Problems: (1) Aspiration pneumonia Assessment & Plan: He did have an aspiration event prior to surgery. A bronchoscopy was performed immediately after to wash out the airways. He has developed bilateral infiltrates on his chest x-ray. We do have him on empiric treatment with Unasyn. His WBC is elevated. His O2 requirement is still high. Will switch antibiotic therapy to Primaxin and vancomycin. Consider adding steroids. Will try some gentle diuresis. Watch closely. (2) Acute respiratory failure Assessment & Plan: He has remained intubated since surgery. He is receiving midazolam and propofol for sedation. He continues to require 95-100% FIO2, but his airway pressure are not significantly elevated. We will continue ventilatory support - may need to consider increasing PEEP if BPs would support. (3) Hyperglycemia Assessment & Plan: He has developed hyperglycemia with the TPN. We do have him on sliding scale level #2. (4) SBO (small bowel obstruction) Status: Acute Assessment & Plan: He did undergo exploratory laparotomy with adhesion lysis, liver biopsy and abdominal hernia repair. (5) Depression Status: Chronic Assessment & Plan: He is on chronic treatment with Effexor XR, which is currently on hold. 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 (7) Colon cancer Status: Resolved Assessment & Plan: Resolved. He did have liver nodules noted during the exploratory lap and a liver biopsy was done. Central Venous Access Medical Necessity for Access: Hemodynamic Monitoring, IV Access, Medication Administration Exam Sepsis Risk: No Definite Risk MARA SALVADOR MD May 01, 2018 08:38
[2018-05-01] MEDS: KCL (*) 20 MEQ/100 ML PREMIX 100 ML IV SCH ×2 (08:44→11:02)
[2018-05-01] MEDS: PANTOPRAZOLE SOD 40 MG IV VIAL IVP SCH (08:45)
[2018-05-01] MEDS: ENOXAPARIN 40 MG/0.4ML SYR SC SCH (08:48)
[2018-05-01] MEDS: ORAL SUCTION/CHLORHX/SWAB KIT MT SCH ×2 (08:48→21:14)
[2018-05-01] MEDS: IMIPENEM/CILASTA(*) 500MG VIAL 500 MG in NS(*) 0.9% 100 ML BAG 100 ML IVPB SCH ×3 (09:26→21:10)
--- NOTE | 2018-05-01 09:29 | Antimicrobial Stewardship ---
Antimicrobial Time Out Antimicrobial Stewardship MD Service: Hospitalist (Consulted for medical management), Other (Surgery is primary service) Indications: Other (Aspiration Pneumonia) Antimicrobial Used 04/28- Started on Unasyn secondary to aspiration prior to intubation 04/28 -05/01 - Unasyn 05/01- Switched to Primaxin + Vancomycin, secondary to clinical deterioration Start Date: Apr 28, 2018 (04/28-05/01 Unasyn05/01 Start Vanc + Primaxin) Culture Results: No (04/28- Witnessed aspiration prior to intubation) Eligible for PO Conversion Eligable for PO Conversion: No Reviewed with Provider Reviewed w/ Provider on Rounds: Yes Date Reviewed w/ Provider: May 01, 2018 Comments Comments 47 yo M with a history of colon cancer s/p chemotherapy who presented with symptoms of a bowel obstruction. Failed conservative decompression/rest, taken to the OR on 04/28/18 for planned resection. Prior to intubation pt aspirated biliary contents into his airway. Pt was intubated and bronched to wash out aspirate in the OR prior to planned resection. Temp febrile 04/29- current, tmax 101.3F WBC 12.4 to 16.4, 50 % neutrophils with bandemia of 27% BP 90s/60s, HR 80s, MAP of 70-80s Vent settings include: 95% FiO2 Chest Xray - increased bibasilar opacities, worsening pulmonary edema 1. Aspiration pneumonia - witnessed episode prior to intubation on 04/28, antibiotic started on 04/28 with Unasyn, pt clinically deteriorating. Recommend switching to Primaxin and Vancomycin to broaden coverage as the patient has been inpatient since 04/25. Recommend: Primaxin + Vancomycin. Loading dose of Vancomycin at 2.5g, followed by 1.75g IV q12h for maintenance. Vancomycin trough on 05/02/18 at 2100. Consider addition of fluconazole after 48h of broad spectrum antibiotics. Will follow closely. Adela Dawkins, PharmD, BCOP ADELA DAWKINS May 01, 2018 09:28
--- NOTE | 2018-05-01 09:40 | RADIOLOGY IMAGING REPORT ---
FACILITY: [facility] - [place] PATIENT NAME: Cosmo Sarabia : 1970 MR: [id number] V: [id number] EXAM DATE: ORDERING PHYSICIAN: MARA SALVADOR TECHNOLOGIST: Location: [facility] [place] Patient: Cosmo Sarabia : 1970 Visit/Account:[id number] Date of Sevice: 05/01/2018 Exam type: CHEST SINGLE AP History: reposition ET tube Comparison: May 01, 2018 at 5:37 AM. Findings: Endotracheal tube is been repositioned with the distal tip projecting just below the level of the cla vicles projects approximately 6 cm proximal to the emiliano. The right IJ catheter remains unchanged. There is an NG/OG tube distal tip coiled in the left upper quadrant of the abdomen Patchy alveolar o pacities in the mid to lower lung granados appear relatively unchanged. Interstitial prominence also u nchanged throughout the lungs. The cardiac silhouette appears normal in size. IMPRESSION: 1. Endotracheal tube is been repositioned with the distal tip projecting just below the level the cl avicles and projecting approximately 6 cm proximal to the emiliano. Additional support lines and tubes as described Patchy alveolar opacities in the mid to lower lung granados and interstitial prominence throughout the lungs has remained unchanged Report Dictated By: Pippa Marcelo MD at 05/01/2018 9:34 AM Report E-Signed By: Pippa Marcelo MD at 05/01/2018 9:37 AM WSN:[email or web address]
[2018-05-01] MEDS ORDERED: [UNRECOGNIZED DRUG - OTHER] IVPB ONE (10:00)
[2018-05-01] MEDS ORDERED: VANCOMYCIN IVPB ONE (10:00)
--- NOTE | 2018-05-01 10:51 | Medical Nutrition Therapy ---
Nutrition Anthropometrics Height (Inches): 70.00 Height (Calculated Centimeters: 177.404616 Weight (Pounds): 218 Weight (Calculated Kilograms): 98.883 BMI: 28.4 Abram Nutrition Score: Adequate Abram Nutrition Risk Score: 14 Dietary Referral Nutrition Risk Factors: Nutrition Risk Comment: Physical Findings Physical Appearance: Overweight BMI 25-29 Skin Appearance Skin Appearance: Edema Edema Location Modifier: Edema Location: Type of Edema: Degree of Edema: Gastrointestinal Symptoms GI Symtoms: Nausea, Vomiting, Bloating, Change in Bowel Pattern Tube Present: NG Bowel Sounds: Recent Bowel Pattern: Constipated Stool Characteristics: Nutritional Diagnosis Nutritional Risk Acuity 1: TPN/PPN, GI Obstruction Past Medical History: Colon CA Nutritional Acuity: 1-High Nutrition Diagnosis: Altered GI Function Nutrition Etiology: Physiological Causes Nutrition Problem/Etiology/Sym: AEB SBO Energy Requirement: 2474 ([address] x 1.2 SF x 1.1 AF) Protein Requirement: 88 (1gm/kg) Fluid Requirement: 2474 (30ml/kg) Diet Type: NPO (Nothing by Mouth), TPN/PPN Nutrition Intervention: Incr diet as tolerated Drug: Diuretics Drug/Nutrition Recommendations: Check Serum K+ Nutritional Support Current Enteral / Parental: TPN Rate: 75 ml/hr Clinimex 5% AA / 20% Dex plus 250 ml lipids Current Duration: 24 Current Calories: 1584 Current Protein: 90 Current Lipids Calories: 500 Total Current Calories: 2469 Nutrition Monitoring & Eval RD Patient Assessment Time: [address] Assessment Type: RD Re-Assessment Patient Nutrition Acuity: 1-High Follow Up Date: May 04, 2018 Nutritional Comment: 04/26 Pt currently NPo for SBO. Pt recieving NG suction. No flatus or bowel sounds at this time. Dr reports pt is dehydrated. Pt cont elevated H/H, BUN, creatinine. Alb WNR at 4.6. Recommend nutrition support if NPO > 3 days. 04/28 Pt has agreed to surgery per note. Bowel function indicates hypoactive, no flatus and very distended - SOB not resolved. Pt to start TPN this afternoon following procedure. Current rate Clinimex 5/15% 75ml/hr which will provide 91% kcal and 98% protein needs. Recommend changing to Clinimex 5/15% 83ml/hr to provide 100% kcal and 113% protein needs. Labs indicate very low K 2.9, Glucose 160 down from 237. BUN 34. Will monitor TPN and labs for any changes. - RB 04/29 POD#1 for small bowel resection, repair of abdominal wall hernias, adhesion lysis. Low H/H, Alb 2.2, Low Ca+, Glu 146k, High Na+. Continues with TPN Clinimix E 5-20% at 75mL/hr with 250 mL/day of Intralipid 20%. Pt also receiving propofol for sedation which contributes 1.1 kcals/mL as fat. Monitor clinical progression, labs, etc. -DRT 05/01 POD #3. Vent. with Propofol at 14.6 ml/hr providing 385 additional kcal. Continues TPN Clinimix E 5% AA / 25% Dex at 75 ml/hr. With vent recalculated kcal needs to 2474. TPN at current rate provides 100% kcal needs and 98% protein needs including Propofol. Pt now on diuretics to improve pulmonary status. K+ low 3.0, BG ranging from 104-165 since yesterday, Alb. 2.3 trending down since admit date on 04/25. Low Ca but trending up. Pt. on electrolyte replacement. Will monitor TPN and labs as pt status changes. - BRENDA CHARLES May 01, 2018 09:12
[2018-05-01] MEDS: FAT EMULSION 20% 250 ML BAG 250 ML IVPB SCH (16:14)
[2018-05-01] MEDS: ACETAMINOPHEN(*)1000 MG/100 ML 100 ML IVPB PRN (17:45)
[2018-05-01] MEDS: VANCOMYCIN(*) 1 GM VIAL 1 GM, VANCOMYCIN (*) 0.5 GM VIAL 0.5 GM in NS(*) 0.9% 250 ML BA... IVPB SCH (21:55)
[2018-05-02] VITALS (94 sets, daily range): BP systolic 81–130; BP diastolic 56–82
[2018-05-02] MEDS: PROPOFOL(*)1000 MG/100 ML VIAL 100 ML IV PRN ×7 (00:24→22:19)
[2018-05-02] MEDS: [UNRECOGNIZED DRUG - OTHER] IV SCH ×2 (04:17→17:32)
[2018-05-02] MEDS: IMIPENEM/CILASTA(*) 500MG VIAL 500 MG in NS(*) 0.9% 100 ML BAG 100 ML IVPB SCH ×4 (04:29→21:01)
[2018-05-02] MEDS: HYDROmorphone HCL 2 MG/ML SDV IVP PRN ×3 (04:37→19:50)
[2018-05-02] MEDS ORDERED: ROCURONIUM BROM 10 MG/ML 10 ML IVP ONE (04:50)
[2018-05-02] MEDS ORDERED: ROCURONIUM BR(*)10 MG/ML 10 ML 500 MG in NS(*) 0.9% 500 ML BAG 450 ML IVPB SCH (04:50)
--- NOTE | 2018-05-02 05:09 | RADIOLOGY IMAGING REPORT ---
FACILITY: [facility] - [place] PATIENT NAME: Cosmo Sarabia : 1970 MR: [id number] V: [id number] EXAM DATE: ORDERING PHYSICIAN: BEATRIZ FERNANDEZ TECHNOLOGIST: Location: [facility] [place] Patient: Cosmo Sarabia : 1970 Visit/Account:[id number] Date of Sevice: 05/02/2018 Portable chest: Indication: Pulmonary edema. Technique: 2 frontal images were obtained. Comparison: 05/01/2018 Lines and tubes: The tip of the ET tube is now 9.4 cm above the emiliano, at the level of the top of th e clavicles. Repositioning is recommended. The nasogastric tube and right jugular venous catheter rem ain in satisfactory position. Skeletal and soft tissue structures: Intact and unremarkable. Heart and mediastinum: Stable. Lung granados: There is a persistent pulmonary edema pattern. Allowing for technical differences, there has been no significant change. There is persistent consolidation and volume loss in the right lower lobe. Pleural spaces: No evidence of pneumothorax or significant effusion. Impression: The tip of the ET tube is now 9.4 cm above the emiliano. Repositioning is recommended. Report Dictated By: Joey Alston MD at 05/02/2018 5:02 AM Report E-Signed By: Joey Alston MD at 05/02/2018 5:05 AM WSN:[email or web address]
[2018-05-02 06:12] LABS: PLATELET COUNT, AUTOMATED 187 K/uL (150-450)
--- NOTE | 2018-05-02 06:41 | General Surgery Progress Note ---
Subjective Progress Notes Subjective Intubated/sedated Physical Exam Vital Signs Date Time Temp Pulse Resp B/P (MAP) Pulse Ox O2 Delivery O2 Flow Rate FiO2 05/02/18 06:00 81 20 97/62 (74) 95 05/02/18 04:59 50.0 05/02/18 04:59 Mechanical Ventilator 05/01/18 18:00 101.4 04/28/18 11:23 2.0 General Appearance: Other (Intubated/sedated) GI: Other (Soft, prevena vac dressing is in place with good vacuum seal) Extremities: Warm, Perfused Result Diagram: 05/01/18 0534 05/01/18 1707 Monitor Interpretation: Normal Sinus Rhythm Assessment and Plan Problems: (1) SBO (small bowel obstruction) Status: Acute Assessment & Plan: 04/25/18: This is his 1st small bowel obstruction. The ventral/incisional hernia is reducible so if this was the cause of the obstruction, he should improve fairly rapidly. Adhesions are also a strong possibility given his history of colon resection for colon cancer. We will start managing this conservatively with NG tube decompression and bowel rest as well as IV fluids. He seems to be very dehydrated based on his labs and so we' ll resuscitate him with crystalloid. If he fails to improve after 48-72 hours then he may need surgical exploration. I have explained this plan to him in great detail and he seems to understand and seems agreeable with this plan. We' ll start Lovenox for DVT prophylaxis and Protonix for GI prophylaxis. We will use intermittent Dilaudid as well as when necessary IV Tylenol and Toradol for pain control. 04/26/18: Doing better clinically. No flatus or BM yet. KUB unchanged. Continue resuscitation, bowel rest and decompression, IV fluids. Pain control, pulmonary hygiene, lovenox, PPI. 04/27/18: Seems to be improving. KUB with improving but still dilated loops of small bowel. Will get a water soluble SBFT today. NG tube removed last night at patient request after warning him that it may have to be replaced if his obstruction worsens. Continue bowel rest, IV fluids, etc. 04/28/18: No improvement, worse since SBFT. Contrast has not passed obstruction. Will proceed with ex-lap today to look for cause of obstruction and treat it. Will also need to address the hernia(s) and how I do this depends on whether bowel resection is necessary. I have explained surgery, alternatives, risks, recovery to the patient and his questions have been answered. He would like to proceed with surgery. Will place central line as well so we can start TPN postop. 04/29/18: POD#1 s/p bronchoscopy, ex-lap, small bowel resection, primary repair of several abdominal wall hernias, liver biopsy, central line placement. Stable overnight but hyperdynamic with mild tachycardia and mild fevers. Likely aspirated bile after induction. Will keep intubated today and let him physiologically recover. Will continue fluid recuscitation today. Continue IV abx, unasyn and vanco. Continue TPN. PPI and lovenox for prophylaxis. Will get PT/OT to see him once extubated. 04/30/18: POD#2. Tachycardic and hypoxic. Physiologic response to surgery and likely bile aspiration and now with likely chemical pneumonitis. Will increase PEEP to 10. CVP up to 15, could consider diuresis especially given fluffy appearance of lungs on CXR this morning. May also consider steroids for pneumonitis but he has an anastomosis and healing of this could be adversely affected by steroids. ABG is improving and base deficit is now normal. Will continue intubation/mech. ventilation until his inflammatory response improves and then, hopefully tomorrow, on POD#3 when he should start mobilizing 3rd spaced fluids, we can help him diurese and dry his lungs out a little, as much as his cardiovascular system will tolerate. Continue TPN, lovenox, PPI, IV abx. 05/01/18: POD#3. Improved HR. Pressures in high 90s systolic but now on propofol gtt for improved sedation/comfort. SaO2 in low 90s on 95%fiO2 and PEEP 10. CVP 8 this morning. Discussed with Hospitalist service. Will gently diurese him today and see how his BP tolerates this. Hopefully with help dry his lungs out and improve oxygenation/ventilation. Fluid status much improved, should start mobilizing 3rd space fluid today, already with increased UOP. Continue intubation/mech ventilation until pulmonary status improves. Continue TPN, lovenox, PPI, IV abx. Hospitalist changing abx coverage from unasyn to primaxin/vanco. Continue ICU care. 05/02/18: POD#4. Improving. HR normal. SBP in 90s on proprofol gtt. Oxygenation is improving, now on PEEP 12 and FiO2. CXR with improved aeration this morning but still with signs of infiltrate in bases c/w aspiration as well as pulmonary edema. Continue intubation/sedation/ventilation today. He is self -diuresing at this point. Will plan on weaning from vent when his settings can be weaned to minimal support settings, hopefully in the next couple of days. Continue TPN, IV abx, lovenox, PPI. Central Venous Access Medical Necessity for Access: Hemodynamic Monitoring, IV Access, Medication Administration Condition Critical Time Spent: < 30 min Exam Sepsis Risk: Sepsis Risk BEATRIZ FERNANDEZ MD May 02, 2018 06:41
[2018-05-02] MEDS: ORAL SUCTION/CHLORHX/SWAB KIT MT SCH ×2 (08:43→21:01)
[2018-05-02] MEDS: ENOXAPARIN 40 MG/0.4ML SYR SC SCH (08:43)
[2018-05-02] MEDS: PANTOPRAZOLE SOD 40 MG IV VIAL IVP SCH (08:43)
--- NOTE | 2018-05-02 09:00 | RADIOLOGY IMAGING REPORT ---
FACILITY: [facility] PATIENT NAME: Cosmo Sarabia : 1970 MR: [id number] V: [id number] EXAM DATE: ORDERING PHYSICIAN: OSCAR REMY TECHNOLOGIST: Location: [facility] Patient: Cosmo Sarabia : 1970 Visit/Account:[id number] Date of Sevice: 05/02/2018 Exam type: CHEST SINGLE AP History: ET tube placement Comparison: May 02, 2018 at 4:24 AM. Findings: The ET tube has been repositioned the distal tip now is approximately 4 cm above the emiliano the NG/OG tube and right IJ catheter appear unchanged. Patchy airspace consolidation in the right lung base l eft mid to lower lung field appear unchanged. Interstitial prominence of the lungs also remains unch anged. The lateral aspect left lower thorax is not included on the study. The cardiac silhouette re piyush stable. IMPRESSION: 1. The ET tube has been repositioned with the distal tip now approximately 4 cm above emiliano. Patchy airspace consolidation in the right lung base and left mid and lower lung granados remains unc hanged as does the interstitial prominence throughout the lungs consistent with the history of pulmon sirisha edema Report Dictated By: Pippa Marcelo MD at 05/02/2018 8:52 AM Report E-Signed By: Pippa Marcelo MD at 05/02/2018 8:56 AM WSN:[email or web address]
[2018-05-02] MEDS: VANCOMYCIN(*) 1 GM VIAL 1 GM, VANCOMYCIN (*) 0.5 GM VIAL 0.5 GM in NS(*) 0.9% 250 ML BA... IVPB SCH (10:20)
--- NOTE | 2018-05-02 10:25 | Hospitalist Progress Note ---
Subjective Progress Notes Subjective The ET tube was advanced this morning. There doesn't appear to be a cuff leak. The patient is very sensitive to being repositioned and becomes tachypneic and dyssynchronous with the ventilator. However, he does improve over time. Physical Exam Vital Signs Date Time Temp Pulse Resp B/P (MAP) Pulse Ox O2 Delivery O2 Flow Rate FiO2 05/02/18 09:19 60.0 05/02/18 09:13 78 22 05/02/18 09:13 95 Mechanical Ventilator 05/02/18 08:45 99.4 83/57 (66) 04/28/18 11:23 2.0 Intake and Output 05/03/18 07:00 Intake Total 100 ml Output Total 235 ml Balance -135 ml IV Total 100 ml Output Urine Total 235 ml General Appearance: Alert, Awake, No Acute Distress Eyes: Other (pupils are equal and pinpoint) ENT: Moist Mucous Membranes Cardiovascular: Regular Rate and Rhythm Respiratory: Clear to Auscultation Extremities: No Edema Result Diagram: 05/02/1851705/02/18517 Monitor Interpretation: Normal Sinus Rhythm Assessment and Plan Problems: (1) Aspiration pneumonia Assessment & Plan: He did have an aspiration event prior to surgery. A bronchoscopy was performed immediately after to wash out the airways. He has developed bilateral infiltrates on his chest x-ray. We do have him on empiric treatment with Unasyn. His WBC is elevated. His O2 requirement is still high. He is on Primaxin and vancomycin. Consider adding steroids if not improving. CVP is 5 and CXR is clearing. Will hold off on further diuresis at this point. (2) Acute respiratory failure Assessment & Plan: He has remained intubated since surgery. He is receiving midazolam and propofol for sedation. His O2 requirement improved with diuresis and increasing PEEP. PEEP is now at 12. FiO2 at 60%. Vt increased to 550. He is overbreathing the ventilator by about 10 breaths per minute with Vt of 600. (3) Hyperglycemia Assessment & Plan: Glucose ranging from 112-190 with the TPN. We do have him on sliding scale level #2. (4) SBO (small bowel obstruction) Status: Acute Assessment & Plan: He did undergo exploratory laparotomy with adhesion lysis, liver biopsy and abdominal hernia repair. (5) Depression Status: Chronic Assessment & Plan: He is on chronic treatment with Effexor XR, which is currently on hold. 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 (7) Colon cancer Status: Resolved Assessment & Plan: Resolved. He did have liver nodules noted during the exploratory lap and a liver biopsy was done. Central Venous Access Medical Necessity for Access: Hemodynamic Monitoring, IV Access, Medication Administration Exam Sepsis Risk: Severe Sepsis Risk OSCAR REMY MD May 02, 2018 10:25
[2018-05-02] MEDS ORDERED: HYPROMELLOSE 0.4% LUB 15ML BTL OU PRN (14:45)
[2018-05-02] MEDS: FAT EMULSION 20% 250 ML BAG 250 ML IVPB SCH (15:58)
--- NOTE | 2018-05-02 16:08 | RADIOLOGY IMAGING REPORT ---
FACILITY: [facility] - [place] PATIENT NAME: Cosmo Sarabia : 1970 MR: [id number] V: [id number] EXAM DATE: ORDERING PHYSICIAN: BEATRIZ FERNANDEZ TECHNOLOGIST: Location: [facility] [place] Patient: Cosmo Sarabia : 1970 Visit/Account:[id number] Date of Sevice: 04/30/2018 Exam type: CHEST SINGLE AP History: intubated Comparison: April 29, 2018. Findings: Images have just now been smooth for formal dictation.. The ET tube tip projects just above the leve l the clavicles. This has apparently been repositioned in the interim. There are hypoventilatory ch anges in the lung granados. There is increasing airspace consolidation in the mid to lower lung granados . There also appears to be increased pulmonary vascular congestion. Cardiac silhouette is enlarged. Right IJ catheter appears unchanged IMPRESSION: 1. Increasing patchy airspace consolidation in the mid to lower lung granados. This may part be due t o hypoventilatory changes Increasing pulmonary vascular congestion Cardiac megaly unchanged The ET tube projects just above the level the clavicles although has apparently been repositioned in the interim Report Dictated By: Pippa Marcelo MD at 05/02/2018 4:00 PM Report E-Signed By: Pippa Marcelo MD at 05/02/2018 4:04 PM WSN:[email or web address]
--- NOTE | 2018-05-02 16:28 | Medical Nutrition Therapy ---
Nutrition Anthropometrics Height (Inches): 70.00 Height (Calculated Centimeters: 177.654022 Weight (Pounds): 218 Weight (Calculated Kilograms): 98.883 BMI: 28.4 Abram Nutrition Score: Adequate Abram Nutrition Risk Score: 12 Dietary Referral Nutrition Risk Factors: Nutrition Risk Comment: Physical Findings Physical Appearance: Overweight BMI 25-29 Skin Appearance Skin Appearance: Edema Edema Location Modifier: Both Edema Location: abdomen Type of Edema: Degree of Edema: Gastrointestinal Symptoms GI Symtoms: Nausea, Vomiting, Bloating, Change in Bowel Pattern Tube Present: NG Bowel Sounds: Recent Bowel Pattern: Constipated Stool Characteristics: Nutritional Diagnosis Nutritional Risk Acuity 1: TPN/PPN, GI Obstruction Past Medical History: Colon CA Nutritional Acuity: 1-High Nutrition Diagnosis: Altered GI Function Nutrition Etiology: Physiological Causes Nutrition Problem/Etiology/Sym: AEB SBO Energy Requirement: 2474 ([address] x 1.2 SF x 1.1 AF) Protein Requirement: 88 (1gm/kg) Fluid Requirement: 2474 (30ml/kg) Diet Type: NPO (Nothing by Mouth), TPN/PPN Nutrition Intervention: Incr diet as tolerated Nutritional Support Current Enteral / Parental: TPN Rate: 75 ml/hr Clinimex 5% AA / 20% Dex plus 250 ml lipids Current Duration: 24 Current Calories: 1584 Current Protein: 90 Current Lipids Calories: 885 (500 kcal lipid plus 385 kcal from Propofol) Total Current Calories: 2469 Nutrition Monitoring & Eval RD Patient Assessment Time: [address] Assessment Type: RD Re-Assessment Patient Nutrition Acuity: 1-High Follow Up Date: May 04, 2018 Nutritional Comment: 04/26 Pt currently NPo for SBO. Pt recieving NG suction. No flatus or bowel sounds at this time. Dr reports pt is dehydrated. Pt cont elevated H/H, BUN, creatinine. Alb WNR at 4.6. Recommend nutrition support if NPO > 3 days. 04/28 Pt has agreed to surgery per note. Bowel function indicates hypoactive, no flatus and very distended - SOB not resolved. Pt to start TPN this afternoon following procedure. Current rate Clinimex 5/15% 75ml/hr which will provide 91% kcal and 98% protein needs. Recommend changing to Clinimex 5/15% 83ml/hr to provide 100% kcal and 113% protein needs. Labs indicate very low K 2.9, Glucose 160 down from 237. BUN 34. Will monitor TPN and labs for any changes. - RB 04/29 POD#1 for small bowel resection, repair of abdominal wall hernias, adhesion lysis. Low H/H, Alb 2.2, Low Ca+, Glu 146k, High Na+. Continues with TPN Clinimix E 5-20% at 75mL/hr with 250 mL/day of Intralipid 20%. Pt also receiving propofol for sedation which contributes 1.1 kcals/mL as fat. Monitor clinical progression, labs, etc. -DRT 05/01 POD #3. Vent. with Propofol at 14.6 ml/hr providing 385 additional kcal. Continues TPN Clinimix E 5% AA / 20% Dex at 75 ml/hr. With vent recalculated kcal needs to 2474. TPN at current rate provides 100% kcal needs and 102% protein needs including Propofol. Pt now on diuretics to improve pulmonary status. K+ low 3.0, BG ranging from 104-165 since yesterday, Alb. 2.3 trending down since admit date on 04/25. Low Ca but trending up. Pt. on electrolyte replacement. Will monitor TPN and labs as pt status changes. - RB 05/02 Pt cont on vent and TPN Clinimix E 5-20% at 75 ml/hr plus 250ml lipids and Propofol at 14.6 ml/hr. Meeting 100% kcal needs and 102% protein needs. Lipid emulsion plus Propofol provide 885 kcal or 36% kcals from fat which is within acceptable range. No longer on diuretic. BG still elevated due to TPN. Will cont to monitor changes in propofol, TPN, labs, etc. - RB BRENDA HAYNES May 02, 2018 16:13
[2018-05-02] MEDS: ACETAMINOPHEN(*)1000 MG/100 ML 100 ML IVPB PRN (16:52)
[2018-05-02] MEDS ORDERED: VANCOMYCIN HCL(*) 0.750 GM ADD 0.75 GM in NS(*) 0.9% 250 ML ADDVAN BAG 250 ML IVPB SCH (22:00)
[2018-05-02] MEDS ORDERED: VANCOMYCIN(*) 1 GM VIAL 1 GM, VANCOMYCIN HCL 0.750 GM VIAL 0.75 GM in NS(*) 0.9% 500 ML... IVPB SCH ×2 (22:35→23:00)
[2018-05-02] MEDS ORDERED: VANCOMYCIN 0.5 GM VIAL ONE (22:48)
[2018-05-03] VITALS (94 sets, daily range): BP systolic 92–136; BP diastolic 55–87
[2018-05-03] MEDS: HYDROmorphone HCL 2 MG/ML SDV IVP PRN ×7 (00:41→22:11)
[2018-05-03] MEDS: IMIPENEM/CILASTA(*) 500MG VIAL 500 MG in NS(*) 0.9% 100 ML BAG 100 ML IVPB SCH ×4 (03:23→20:30)
[2018-05-03] MEDS: ACETAMINOPHEN(*)1000 MG/100 ML 100 ML IVPB PRN ×2 (05:19→15:17)
[2018-05-03 05:45] LABS: PLATELET COUNT, AUTOMATED 212 K/uL (150-450)
[2018-05-03] MEDS ORDERED: KCL (*) 20 MEQ/100 ML PREMIX 100 ML IV SCH ×2 (06:30)
--- NOTE | 2018-05-03 06:33 | General Surgery Progress Note ---
Subjective Progress Notes Subjective Intubated/sedated Physical Exam Vital Signs Date Time Temp Pulse Resp B/P (MAP) Pulse Ox O2 Delivery O2 Flow Rate FiO2 05/03/18 05:54 60.0 05/03/18 05:45 90 23 05/03/18 05:45 95 Mechanical Ventilator 05/03/18 05:15 100.4 112/74 (87) General Appearance: Alert, Awake, No Acute Distress, Afebrile GI: Other (Soft, prevena vac dressing is in place with good vacuum seal) Extremities: Warm, Perfused Result Diagram: 05/03/18 0525 05/03/18 0525 Monitor Interpretation: Normal Sinus Rhythm Assessment and Plan Problems: (1) SBO (small bowel obstruction) Status: Acute Assessment & Plan: 04/25/18: This is his 1st small bowel obstruction. The ventral/incisional hernia is reducible so if this was the cause of the obstruction, he should improve fairly rapidly. Adhesions are also a strong possibility given his history of colon resection for colon cancer. We will start managing this conservatively with NG tube decompression and bowel rest as well as IV fluids. He seems to be very dehydrated based on his labs and so we' ll resuscitate him with crystalloid. If he fails to improve after 48-72 hours then he may need surgical exploration. I have explained this plan to him in great detail and he seems to understand and seems agreeable with this plan. We' ll start Lovenox for DVT prophylaxis and Protonix for GI prophylaxis. We will use intermittent Dilaudid as well as when necessary IV Tylenol and Toradol for pain control. 04/26/18: Doing better clinically. No flatus or BM yet. KUB unchanged. Continue resuscitation, bowel rest and decompression, IV fluids. Pain control, pulmonary hygiene, lovenox, PPI. 04/27/18: Seems to be improving. KUB with improving but still dilated loops of small bowel. Will get a water soluble SBFT today. NG tube removed last night at patient request after warning him that it may have to be replaced if his obstruction worsens. Continue bowel rest, IV fluids, etc. 04/28/18: No improvement, worse since SBFT. Contrast has not passed obstruction. Will proceed with ex-lap today to look for cause of obstruction and treat it. Will also need to address the hernia(s) and how I do this depends on whether bowel resection is necessary. I have explained surgery, alternatives, risks, recovery to the patient and his questions have been answered. He would like to proceed with surgery. Will place central line as well so we can start TPN postop. 04/29/18: POD#1 s/p bronchoscopy, ex-lap, small bowel resection, primary repair of several abdominal wall hernias, liver biopsy, central line placement. Stable overnight but hyperdynamic with mild tachycardia and mild fevers. Likely aspirated bile after induction. Will keep intubated today and let him physiologically recover. Will continue fluid recuscitation today. Continue IV abx, unasyn and vanco. Continue TPN. PPI and lovenox for prophylaxis. Will get PT/OT to see him once extubated. 04/30/18: POD#2. Tachycardic and hypoxic. Physiologic response to surgery and likely bile aspiration and now with likely chemical pneumonitis. Will increase PEEP to 10. CVP up to 15, could consider diuresis especially given fluffy appearance of lungs on CXR this morning. May also consider steroids for pneumonitis but he has an anastomosis and healing of this could be adversely affected by steroids. ABG is improving and base deficit is now normal. Will continue intubation/mech. ventilation until his inflammatory response improves and then, hopefully tomorrow, on POD#3 when he should start mobilizing 3rd spaced fluids, we can help him diurese and dry his lungs out a little, as much as his cardiovascular system will tolerate. Continue TPN, lovenox, PPI, IV abx. 05/01/18: POD#3. Improved HR. Pressures in high 90s systolic but now on propofol gtt for improved sedation/comfort. SaO2 in low 90s on 95%fiO2 and PEEP 10. CVP 8 this morning. Discussed with Hospitalist service. Will gently diurese him today and see how his BP tolerates this. Hopefully with help dry his lungs out and improve oxygenation/ventilation. Fluid status much improved, should start mobilizing 3rd space fluid today, already with increased UOP. Continue intubation/mech ventilation until pulmonary status improves. Continue TPN, lovenox, PPI, IV abx. Hospitalist changing abx coverage from unasyn to primaxin/vanco. Continue ICU care. 05/02/18: POD#4. Improving. HR normal. SBP in 90s on proprofol gtt. Oxygenation is improving, now on PEEP 12 and FiO2. CXR with improved aeration this morning but still with signs of infiltrate in bases c/w aspiration as well as pulmonary edema. Continue intubation/sedation/ventilation today. He is self -diuresing at this point. Will plan on weaning from vent when his settings can be weaned to minimal support settings, hopefully in the next couple of days. Continue TPN, IV abx, lovenox, PPI. 05/03/18: POD#5. Continued improvement. HR normal. SBP in low 100s. Oxygenation is improving, now on PEEP 5. He becomes very agitated when sedation is weaned and he desats and becomes very tachypneic. Will need to continue sedation holidays and let him work on the vent. CXR still with signs of pulmonary edema but he's auto diuresing. Replace K today. Continue intubation/ventilation today and will start checking daily weaning parameters. Continue TPN, IV abx, lovenox, PPI. Central Venous Access Medical Necessity for Access: Hemodynamic Monitoring, IV Access, Medication Administration Condition Critical Time Spent: < 30 min Exam Sepsis Risk: No Definite Risk BEATRIZ FERNANDEZ MD May 03, 2018 06:33
[2018-05-03] MEDS: [UNRECOGNIZED DRUG - OTHER] IV SCH ×2 (07:04→20:30)
[2018-05-03] MEDS ORDERED: KCL 20 MEQ/50 ML PREMIX 50 ML IVPB ONE ×2 (07:20→08:15)
--- NOTE | 2018-05-03 07:21 | RADIOLOGY IMAGING REPORT ---
FACILITY: [facility] PATIENT NAME: Cosmo Sarabia : 1970 MR: [id number] V: [id number] EXAM DATE: ORDERING PHYSICIAN: BEATRIZ FERNANDEZ TECHNOLOGIST: Location: [facility] Patient: Cosmo Sarabia : 1970 Visit/Account:[id number] Date of Sevice: 05/03/2018 CHEST SINGLE AP Additional pertinent History: Intubated COMPARISON STUDIES: none FINDINGS:. Support lines and catheters: ET tube well-positioned 3.6 centers from the emiliano. NG tube reidentifie d.. Right IJ reidentified Lungs and Pleura: Persistent bilateral patchy interstitial alveolar infiltrative changes. Slight imp rovement in the degree of opacity seen in the right lower lung. Heart and vasculature: Negative. Muriel and Mediastinum: Negative. Bones and Chest wall: Negative. Upper Abdomen: Negative. IMPRESSION: 1. Diffuse patchy interstitial infiltrative changes in both lower lung granados with slight improvement in aeration in the right lower lung when compared to previous study. 2. Stable catheters and tubes Report Dictated By: Myron Day MD at 05/03/2018 7:15 AM Report E-Signed By: Myron Day MD at 05/03/2018 7:18 AM WSN:[id number]
[2018-05-03] MEDS: ORAL SUCTION/CHLORHX/SWAB KIT MT SCH ×2 (09:00→21:05)
[2018-05-03] MEDS: ENOXAPARIN 40 MG/0.4ML SYR SC SCH (09:00)
[2018-05-03] MEDS: PANTOPRAZOLE SOD 40 MG IV VIAL IVP SCH (09:01)
--- NOTE | 2018-05-03 09:47 | Hospitalist Progress Note ---
Subjective Progress Notes Subjective 47M admitted for SBO and failed conservative management. Large volume emesis as intubated in OR and suspected aspiration. Remains intubated and sedated, O2 needs decreasing, CXR improving. Physical Exam Vital Signs Date Time Temp Pulse Resp B/P (MAP) Pulse Ox O2 Delivery O2 Flow Rate FiO2 05/03/18 09:09 82 05/03/18 09:00 99.4 24 107/70 (82) 94 Mechanical Ventilator 60.0 Intake and Output 05/04/18 07:00 Intake Total 104 ml Output Total 250 ml Balance -146 ml IV Total 104 ml Output Urine Total 250 ml General Appearance: Afebrile Neuro: No Gross deficits ENT: Normal (ET tube, NG tube) Neck: No Masses Cardiovascular: Normal Rhythm & Peripheral Pulses Respiratory: Other (ventilated, overbreathing vent) Chest: No Masses GI: Soft and Non-Tender : Normal Lymph: No Adenopathy Musculoskeletal: No Weakness/Pain Extremities: Soft and Non Tender, Warm, Pulses Integumentary: Skin Intact without Lesion / Mass Result Diagram: 05/03/1852405/03/18524 Monitor Interpretation: Normal Sinus Rhythm Assessment and Plan Problems: (1) Aspiration pneumonia Assessment & Plan: He did have an aspiration event prior to surgery. A bronchoscopy was performed immediately after to wash out the airways. He has developed bilateral infiltrates on his chest x-ray. We do have him on empiric treatment with vancomycin and Primaxin. Consider adding steroids if not improving. CVP is 8 and CXR is clearing. One time dose 20mg Lasix today, FIO2 0.6 is improved, peak pressures low. (2) Acute respiratory failure Assessment & Plan: He has remained intubated since surgery. He is receiving midazolam and propofol for sedation. His O2 requirement improved with diuresis. FiO2 at 0.6. CPAP this am while tolerated, daily sedation vacations. One time dose Lasix as improved respiratory status previously with some diuresis. (3) Hyperglycemia Assessment & Plan: Glucose ranging from 112-190 with the TPN. We do have him on sliding scale level #2. (4) SBO (small bowel obstruction) Status: Acute Assessment & Plan: He did undergo exploratory laparotomy with adhesion lysis, liver biopsy and abdominal hernia repair. (5) Depression Status: Chronic Assessment & Plan: He is on chronic treatment with Effexor XR, which is currently on hold. 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 (7) Colon cancer Status: Resolved Assessment & Plan: Resolved. He did have liver nodules noted during the exploratory lap and a liver biopsy was done. Central Venous Access Medical Necessity for Access: Hemodynamic Monitoring, IV Access, Medication Administration Exam Sepsis Risk: Severe Sepsis Risk SARBJIT HSIEH DO May 03, 2018 09:47
[2018-05-03] MEDS: KCL 20 MEQ/50 ML PREMIX 50 ML IVPB SCH ×2 (10:12→12:07)
[2018-05-03] MEDS ORDERED: VANCOMYCIN(*) 1 GM VIAL 1 GM, VANCOMYCIN HCL 0.750 GM VIAL 0.75 GM in NS(*) 0.9% 500 ML... IVPB SCH (11:00)
[2018-05-03] MEDS: PROPOFOL(*)1000 MG/100 ML VIAL 100 ML IV PRN ×3 (11:21→22:37)
[2018-05-03] MEDS: NS(*) 0.9% 500 ML BAG 500 ML IV PRN ×2 (12:41→16:21)
[2018-05-03] MEDS: FUROSEMIDE 20 MG/2 ML VIAL IVP SCH (12:46)
[2018-05-03] MEDS ORDERED: MIDAZOLAM 50 MG/10 ML VIAL 100 MG in NS(*) 0.9% 100 ML BAG 80 ML IV PRN (13:25)
[2018-05-03] MEDS: FAT EMULSION 20% 250 ML BAG 250 ML IVPB SCH (15:17)
[2018-05-03] MEDS ORDERED: VANCOMYCIN(*) 1 GM VIAL 1 GM, VANCOMYCIN HCL 0.750 GM VIAL 0.75 GM in NS(*) 0.9% 250 ML... IVPB SCH (23:00)
[2018-05-04] VITALS (91 sets, daily range): BP systolic 81–151; BP diastolic 53–93
[2018-05-04] MEDS: HYDROmorphone HCL 2 MG/ML SDV IVP PRN ×8 (00:51→22:10)
[2018-05-04] MEDS: PROPOFOL(*)1000 MG/100 ML VIAL 100 ML IV PRN ×7 (02:06→22:33)
[2018-05-04] MEDS: IMIPENEM/CILASTA(*) 500MG VIAL 500 MG in NS(*) 0.9% 100 ML BAG 100 ML IVPB SCH ×4 (02:53→20:44)
[2018-05-04] MEDS: ACETAMINOPHEN(*)1000 MG/100 ML 100 ML IVPB PRN ×3 (04:04→23:14)
[2018-05-04 05:48] LABS: PLATELET COUNT, AUTOMATED 219 K/uL (150-450)
[2018-05-04] MEDS ORDERED: KCL (*) 20 MEQ/100 ML PREMIX 100 ML IV SCH ×2 (06:15→07:40)
--- NOTE | 2018-05-04 06:19 | General Surgery Progress Note ---
Subjective Progress Notes Subjective Intubated/sedated Physical Exam Vital Signs Date Time Temp Pulse Resp B/P (MAP) Pulse Ox O2 Delivery O2 Flow Rate FiO2 05/04/18 05:47 60.0 05/04/18 05:45 100.4 88 19 91/62 (72) 92 Mechanical Ventilator General Appearance: Other (Intubated/sedated) GI: Other (Soft, prevena vac dressing in place with good vacuum seal) Extremities: Warm, Perfused Result Diagram: 05/04/1851505/04/18515 Monitor Interpretation: Normal Sinus Rhythm Assessment and Plan Problems: (1) SBO (small bowel obstruction) Status: Acute Assessment & Plan: 04/25/18: This is his 1st small bowel obstruction. The ventral/incisional hernia is reducible so if this was the cause of the obstruction, he should improve fairly rapidly. Adhesions are also a strong possibility given his history of colon resection for colon cancer. We will start managing this conservatively with NG tube decompression and bowel rest as well as IV fluids. He seems to be very dehydrated based on his labs and so we' ll resuscitate him with crystalloid. If he fails to improve after 48-72 hours then he may need surgical exploration. I have explained this plan to him in great detail and he seems to understand and seems agreeable with this plan. We' ll start Lovenox for DVT prophylaxis and Protonix for GI prophylaxis. We will use intermittent Dilaudid as well as when necessary IV Tylenol and Toradol for pain control. 04/26/18: Doing better clinically. No flatus or BM yet. KUB unchanged. Continue resuscitation, bowel rest and decompression, IV fluids. Pain control, pulmonary hygiene, lovenox, PPI. 04/27/18: Seems to be improving. KUB with improving but still dilated loops of small bowel. Will get a water soluble SBFT today. NG tube removed last night at patient request after warning him that it may have to be replaced if his obstruction worsens. Continue bowel rest, IV fluids, etc. 04/28/18: No improvement, worse since SBFT. Contrast has not passed obstruction. Will proceed with ex-lap today to look for cause of obstruction and treat it. Will also need to address the hernia(s) and how I do this depends on whether bowel resection is necessary. I have explained surgery, alternatives, risks, recovery to the patient and his questions have been answered. He would like to proceed with surgery. Will place central line as well so we can start TPN postop. 04/29/18: POD#1 s/p bronchoscopy, ex-lap, small bowel resection, primary repair of several abdominal wall hernias, liver biopsy, central line placement. Stable overnight but hyperdynamic with mild tachycardia and mild fevers. Likely aspirated bile after induction. Will keep intubated today and let him physiologically recover. Will continue fluid recuscitation today. Continue IV abx, unasyn and vanco. Continue TPN. PPI and lovenox for prophylaxis. Will get PT/OT to see him once extubated. 04/30/18: POD#2. Tachycardic and hypoxic. Physiologic response to surgery and likely bile aspiration and now with likely chemical pneumonitis. Will increase PEEP to 10. CVP up to 15, could consider diuresis especially given fluffy appearance of lungs on CXR this morning. May also consider steroids for pneumonitis but he has an anastomosis and healing of this could be adversely affected by steroids. ABG is improving and base deficit is now normal. Will continue intubation/mech. ventilation until his inflammatory response improves and then, hopefully tomorrow, on POD#3 when he should start mobilizing 3rd spaced fluids, we can help him diurese and dry his lungs out a little, as much as his cardiovascular system will tolerate. Continue TPN, lovenox, PPI, IV abx. 05/01/18: POD#3. Improved HR. Pressures in high 90s systolic but now on propofol gtt for improved sedation/comfort. SaO2 in low 90s on 95%fiO2 and PEEP 10. CVP 8 this morning. Discussed with Hospitalist service. Will gently diurese him today and see how his BP tolerates this. Hopefully with help dry his lungs out and improve oxygenation/ventilation. Fluid status much improved, should start mobilizing 3rd space fluid today, already with increased UOP. Continue intubation/mech ventilation until pulmonary status improves. Continue TPN, lovenox, PPI, IV abx. Hospitalist changing abx coverage from unasyn to primaxin/vanco. Continue ICU care. 05/02/18: POD#4. Improving. HR normal. SBP in 90s on proprofol gtt. Oxygenation is improving, now on PEEP 12 and FiO2. CXR with improved aeration this morning but still with signs of infiltrate in bases c/w aspiration as well as pulmonary edema. Continue intubation/sedation/ventilation today. He is self -diuresing at this point. Will plan on weaning from vent when his settings can be weaned to minimal support settings, hopefully in the next couple of days. Continue TPN, IV abx, lovenox, PPI. 05/03/18: POD#5. Continued improvement. HR normal. SBP in low 100s. Oxygenation is improving, now on PEEP 5. He becomes very agitated when sedation is weaned and he desats and becomes very tachypneic. Will need to continue sedation holidays and let him work on the vent. CXR still with signs of pulmonary edema but he's auto diuresing. Replace K today. Continue intubation/ventilation today and will start checking daily weaning parameters. Continue TPN, IV abx, lovenox, PPI. 05/04/18: POD#6. Stable but still having fevers and WBC has leveled off at 14K on primaxin and vancomycin. If fevers and WBC don't improve by tomorrow morning then will get a CT abd/pelvis tomorrow. CXR pending. Low K, replace. Cotinue daily sedation holidays and vent weaning measures but won't plan to extubate until at least tomorrow after we know if fevers/WBC improve or CT reveals no need for reoperation (i.e. no anastomotic leak or abscess). Could also consider adding antifungal coverage to abx. Cotinue primaxin/vanco, TPN, lovenox, PPI. (2) Fever Status: Acute (3) Aspiration pneumonia due to vomit Status: Acute Central Venous Access Medical Necessity for Access: Hemodynamic Monitoring, IV Access, Medication Administration Condition Critical Time Spent: < 30 min Exam Sepsis Risk: Sepsis Risk Problem Qualifiers (1) Fever: Fever type: post-procedural Qualified Codes: R50.82 - Postprocedural fever (2) Aspiration pneumonia due to vomit: Laterality: bilateral BEATRIZ FERNANDEZ MD May 04, 2018 06:19
[2018-05-04] MEDS ORDERED: KCL 20 MEQ/50 ML PREMIX 50 ML IVPB ONE (08:15)
--- NOTE | 2018-05-04 08:27 | RADIOLOGY IMAGING REPORT ---
FACILITY: [facility] PATIENT NAME: Cosmo Sarabia : 1970 MR: [id number] V: [id number] EXAM DATE: ORDERING PHYSICIAN: BEATRIZ FERNANDEZ TECHNOLOGIST: Location: [facility] Patient: Cosmo Sarabia : 1970 Visit/Account:[id number] Date of Sevice: 05/04/2018 Chest single view: HISTORY: Intubated. COMPARISON: 05/03/2018 FINDINGS: Portable chest 0540 hours: Patient is intubated, ET tube tip approximately 3.2 cm above the emiliano. NG tube tip is in the stomach. Right IJ catheter tip at the right atrial SVC junction. Heart and mediastinal contours are unchanged. There are bilateral infiltrates left more extensive than rig ht, slightly worse radiographically. No definite pleural effusion. No pneumothorax. IMPRESSION: 1. Tubes and lines in good position. 2. Bilateral infiltrates left greater than right, slightly worse compared to the prior study. Report Dictated By: Mely Snell MD at 05/04/2018 8:12 AM Report E-Signed By: Mely Snell MD at 05/04/2018 8:23 AM WSN:[id number]
[2018-05-04] MEDS: PANTOPRAZOLE SOD 40 MG IV VIAL IVP SCH (08:43)
[2018-05-04] MEDS: ENOXAPARIN 40 MG/0.4ML SYR SC SCH (08:44)
[2018-05-04] MEDS: FUROSEMIDE 20 MG/2 ML VIAL IVP SCH (08:44)
[2018-05-04] MEDS: ORAL SUCTION/CHLORHX/SWAB KIT MT SCH ×2 (08:45→20:45)
[2018-05-04] MEDS: FLUCONAZOLE 200 MG/100ML PRMIX 100 ML IVPB SCH (09:46)
[2018-05-04] MEDS: [UNRECOGNIZED DRUG - OTHER] IV SCH ×2 (09:58→23:15)
--- NOTE | 2018-05-04 10:38 | Hospitalist Progress Note ---
Subjective Progress Notes Subjective Sedated on ventilator. Some persistent low grade temps. Physical Exam Vital Signs Date Time Temp Pulse Resp B/P (MAP) Pulse Ox O2 Delivery O2 Flow Rate FiO2 05/04/18 10:11 91 05/04/18 09:15 100.0 42 151/91 (111) 94 Mechanical Ventilator 60.0 Intake and Output 05/05/18 07:00 Intake Total 580 ml Output Total 1005 ml Balance -425 ml IV Total 580 ml Output Urine Total 1005 ml General Appearance: Other (sedated on ventilator) Cardiovascular: Regular Rate and Rhythm Respiratory: Other (few coarse/ventilator breath sounds bilaterally) Extremities: Warm, Perfused, Edema Result Diagram: 05/04/18 0516 05/04/18 0516 Item Value Date Time Oxygen Liters/Minute 60 05/04/18 0516 Shin Test Acceptable 05/04/18 0516 Arterial Blood Base Excess 2.0 mmol/L 05/04/18 0516 Arterial Blood Oxygen Saturation 95 % 05/04/18 0516 Arterial Blood HCO3 25 mmol/L 05/04/18 0516 Arterial Blood Partial Pressure O2 78 mmHg 05/04/18 0516 Arterial Blood Partial Pressure CO2 35 mmHg 05/04/18 0516 Arterial Blood pH 7.47 H 05/04/18 0516 Blood Gas Patient Temperature 38.4 DEGREES 05/04/18 0516 Blood Gas Puncture Site Right radial 05/04/18 0516 Albumin 2.4 g/dl L 05/04/18 0516 Total Protein 4.8 g/dl L 05/04/18 0516 Alkaline Phosphatase 106 U/L 05/04/18 0516 Alanine Aminotransferase (ALT/SGPT) 28 U/L 05/04/18 0516 Aspartate Amino Transf (AST/SGOT) 23 U/L 05/04/18 0516 Direct Bilirubin 1.1 mg/dl H 05/04/18 0516 Total Bilirubin 1.3 mg/dl 05/04/18 0516 Calcium Level 7.7 mg/dl L 05/04/18 0516 Monitor Interpretation: Normal Sinus Rhythm Assessment and Plan Problems: (1) Aspiration pneumonia Assessment & Plan: He did have an aspiration event prior to surgery. Bronchoscopy was performed immediately after to wash out the airways. He has developed bilateral infiltrates on his chest x-ray. We do have him on empiric treatment with vancomycin and Primaxin. Consider adding steroids if not improving. CVP has been running ~ 8. CXR shows persistent interstitial prominence/bibasilar infiltrates. Will continue to try gentle diuresis. Will place on PEEP 12 and try to wean FiO2 below 50%. Once we are able to achieve that, will work on weaning PEEP. His peak pressures have been acceptable. (2) Acute respiratory failure Assessment & Plan: He has remained intubated since surgery. He is receiving midazolam and propofol for sedation. His O2 requirement improved with diuresis. PEEP will be placed at 12. The FiO2 is at 60% currently and will try to wean. Will continue Lasix 10mg IV daily to achieve some diuresis. (3) Hyperglycemia Assessment & Plan: Glucose ranging from 112-190 with the TPN. We do have him on sliding scale level #2. (4) SBO (small bowel obstruction) Status: Acute Assessment & Plan: He did undergo exploratory laparotomy with adhesion lysis, liver biopsy and abdominal hernia repair. (5) Depression Status: Chronic Assessment & Plan: He is on chronic treatment with Effexor XR, which is currently on hold. 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 (7) Colon cancer Status: Resolved Assessment & Plan: Resolved. He did have liver nodules noted during the exploratory lap and a liver biopsy was done - negative for malignancy. Central Venous Access Medical Necessity for Access: Hemodynamic Monitoring, IV Access, Medication Administration Exam Sepsis Risk: Sepsis Risk MARA SALVADOR MD May 04, 2018 10:37
[2018-05-04] MEDS: VANCOMYCIN(*) 1 GM VIAL 1 GM, VANCOMYCIN (*) 0.5 GM VIAL 0.5 GM in NS(*) 0.9% 250 ML BA... IVPB SCH ×2 (11:09→18:16)
--- NOTE | 2018-05-04 12:40 | Medical Nutrition Therapy ---
Nutrition Anthropometrics Height (Inches): 70.00 Height (Calculated Centimeters: 177.152911 Weight (Pounds): 219 Weight (Calculated Kilograms): 99.337 BMI: 31.4 Abram Nutrition Score: Adequate Abram Nutrition Risk Score: 12 Dietary Referral Nutrition Risk Factors: Nutrition Risk Comment: Physical Findings Physical Appearance: Overweight BMI 25-29 Skin Appearance Skin Appearance: Edema Edema Location Modifier: Both Edema Location: abdomen Type of Edema: Degree of Edema: Gastrointestinal Symptoms GI Symtoms: Nausea, Vomiting, Bloating, Change in Bowel Pattern Tube Present: NG Bowel Sounds: Recent Bowel Pattern: Constipated Stool Characteristics: Nutritional Diagnosis Nutritional Risk Acuity 1: TPN/PPN, GI Obstruction Past Medical History: Colon CA Nutritional Acuity: 1-High Nutrition Diagnosis: Altered GI Function Nutrition Etiology: Physiological Causes Nutrition Problem/Etiology/Sym: AEB SBO Energy Requirement: 2474 ([address] x 1.2 SF x 1.1 AF) Protein Requirement: 88 (1gm/kg) Fluid Requirement: 2474 (30ml/kg) Diet Type: NPO (Nothing by Mouth), TPN/PPN Nutrition Intervention: Incr diet as tolerated Drug: Diuretics Drug/Nutrition Recommendations: Patient Taking K+ Nutritional Support Current Enteral / Parental: TPN Rate: 75 ml/hr Clinimix 5% AA / 20% Dex plus 250 ml lipids Current Duration: 24 Current Calories: 1584 Current Protein: 90 Current Lipids Calories: 1421 (500 kcal lipid plus 921 kcal from Propofol) Total Current Calories: 3005 Recommended Rate: 75 ml/hr Clinimix 5%AA/20% Dex NO lipid Recommended Duration: 24 Recommended Calories: 1584 Recommended Protein: 90 Recommended Lipids Calories: 921 (Propofol at 34.9 ml/hr and 1.1 kcal/ml provides 921 kcal) Total Recommended Calories: 2505 Nutrition Monitoring & Eval RD Patient Assessment Time: [address] Assessment Type: RD Re-Assessment Patient Nutrition Acuity: 1-High Follow Up Date: May 08, 2018 Nutritional Comment: 04/26 Pt currently NPo for SBO. Pt recieving NG suction. No flatus or bowel sounds at this time. reports pt is dehydrated. Pt cont elevated H/H, BUN, creatinine. Alb WNR at 4.6. Recommend nutrition support if NPO > 3 days. 04/28 Pt has agreed to surgery per Dr. note. Bowel function indicates hypoactive, no flatus and very distended - SOB not resolved. Pt to start TPN this afternoon following procedure. Current rate Clinimex 5/15% 75ml/hr which will provide 91% kcal and 98% protein needs. Recommend changing to Clinimex 5/15% 83ml/hr to provide 100% kcal and 113% protein needs. Labs indicate very low K 2.9, Glucose 160 down from 237. BUN 34. Will monitor TPN and labs for any changes. - RB 04/29 POD#1 for small bowel resection, repair of abdominal wall hernias, adhesion lysis. Low H/H, Alb 2.2, Low Ca+, Glu 146k, High Na+. Continues with TPN Clinimix E 5-20% at 75mL/hr with 250 mL/day of Intralipid 20%. Pt also receiving propofol for sedation which contributes 1.1 kcals/mL as fat. Monitor clinical progression, labs, etc. -DRT 05/01 POD #3. Vent. with Propofol at 14.6 ml/hr providing 385 additional kcal. Continues TPN Clinimix E 5% AA / 20% Dex at 75 ml/hr. With vent recalculated kcal needs to 2474. TPN at current rate provides 100% kcal needs and 102% protein needs including Propofol. Pt now on diuretics to improve pulmonary status. K+ low 3.0, BG ranging from 104-165 since yesterday, Alb. 2.3 trending down since admit date on 04/25. Low Ca but trending up. Pt. on electrolyte replacement. Will monitor TPN and labs as pt status changes. - RB 05/02 Pt cont on vent and TPN Clinimix E 5-20% at 75 ml/hr plus 250ml lipids and Propofol at 14.6 ml/hr. Meeting 100% kcal needs and 102% protein needs. Lipid emulsion plus Propofol provide 885 kcal or 36% kcals from fat which is within acceptable range. No longer on diuretic. BG still elevated due to TPN. Will cont to monitor changes in propofol, TPN, labs, etc. - RB 05/04 Pt now on 34.9 ml/hr Propofol plus Clinimix E 5-20 at 75 ml/hr and 250 ml lipid. Current rate of Propofol provides 921 additional kcal from fat plus 500 kcal lipid emulsion and 1584 kcal from TPN. This totals 3005 kcal - pt being overfed by 531 kcal or 121%. Pt wt also increasing but on diuretics. Recommend same rate of Clinimix E 5-20 at 75 ml/hr but no extra lipid because Propofol provides 31% kcal from fat. Without lipid, would provide 2505 total kcal, 101% kcal needs and 102% protein needs. Dr. weeks states potential extubation tomorrow for CT scan if elevated WBC and fever not resolved. Will cont. to monitor TPN and Propofol while sedated on vent. - BRENDA CHARLES May 04, 2018 09:06
[2018-05-05] VITALS (95 sets, daily range): BP systolic 91–160; BP diastolic 45–98
[2018-05-05] MEDS: HYDROmorphone HCL 2 MG/ML SDV IVP PRN ×4 (01:29→08:36)
[2018-05-05] MEDS: PROPOFOL(*)1000 MG/100 ML VIAL 100 ML IV PRN ×8 (02:00→22:45)
[2018-05-05] MEDS: IMIPENEM/CILASTA(*) 500MG VIAL 500 MG in NS(*) 0.9% 100 ML BAG 100 ML IVPB SCH ×4 (02:19→20:50)
[2018-05-05] MEDS: VANCOMYCIN(*) 1 GM VIAL 1 GM, VANCOMYCIN (*) 0.5 GM VIAL 0.5 GM in NS(*) 0.9% 250 ML BA... IVPB SCH ×3 (03:01→19:27)
[2018-05-05] MEDS: ACETAMINOPHEN(*)1000 MG/100 ML 100 ML IVPB PRN ×3 (05:07→20:51)
[2018-05-05 05:45] LABS: PLATELET COUNT, AUTOMATED 232 K/uL (150-450)
--- NOTE | 2018-05-05 06:11 | General Surgery Progress Note ---
Subjective Progress Notes Subjective Intubated/sedated Physical Exam Vital Signs Date Time Temp Pulse Resp B/P (MAP) Pulse Ox O2 Delivery O2 Flow Rate FiO2 05/05/18 05:30 101.0 86 20 94/61 (72) 92 Mechanical Ventilator 45.0 General Appearance: Other (Intubated/sedated) GI: Other (Soft, prevena vac dressing removed, incision looks good without erythema or drainage) Extremities: Warm, Perfused Result Diagram: 05/04/18 0516 05/04/18 0516 Monitor Interpretation: Normal Sinus Rhythm Assessment and Plan Problems: (1) SBO (small bowel obstruction) Status: Acute Assessment & Plan: 04/25/18: This is his 1st small bowel obstruction. The ventral/incisional hernia is reducible so if this was the cause of the obstruction, he should improve fairly rapidly. Adhesions are also a strong possibility given his history of colon resection for colon cancer. We will start managing this conservatively with NG tube decompression and bowel rest as well as IV fluids. He seems to be very dehydrated based on his labs and so we' ll resuscitate him with crystalloid. If he fails to improve after 48-72 hours then he may need surgical exploration. I have explained this plan to him in great detail and he seems to understand and seems agreeable with this plan. We' ll start Lovenox for DVT prophylaxis and Protonix for GI prophylaxis. We will use intermittent Dilaudid as well as when necessary IV Tylenol and Toradol for pain control. 04/26/18: Doing better clinically. No flatus or BM yet. KUB unchanged. Continue resuscitation, bowel rest and decompression, IV fluids. Pain control, pulmonary hygiene, lovenox, PPI. 04/27/18: Seems to be improving. KUB with improving but still dilated loops of small bowel. Will get a water soluble SBFT today. NG tube removed last night at patient request after warning him that it may have to be replaced if his obstruction worsens. Continue bowel rest, IV fluids, etc. 04/28/18: No improvement, worse since SBFT. Contrast has not passed obstruction. Will proceed with ex-lap today to look for cause of obstruction and treat it. Will also need to address the hernia(s) and how I do this depends on whether bowel resection is necessary. I have explained surgery, alternatives, risks, recovery to the patient and his questions have been answered. He would like to proceed with surgery. Will place central line as well so we can start TPN postop. 04/29/18: POD#1 s/p bronchoscopy, ex-lap, small bowel resection, primary repair of several abdominal wall hernias, liver biopsy, central line placement. Stable overnight but hyperdynamic with mild tachycardia and mild fevers. Likely aspirated bile after induction. Will keep intubated today and let him physiologically recover. Will continue fluid recuscitation today. Continue IV abx, unasyn and vanco. Continue TPN. PPI and lovenox for prophylaxis. Will get PT/OT to see him once extubated. 04/30/18: POD#2. Tachycardic and hypoxic. Physiologic response to surgery and likely bile aspiration and now with likely chemical pneumonitis. Will increase PEEP to 10. CVP up to 15, could consider diuresis especially given fluffy appearance of lungs on CXR this morning. May also consider steroids for pneumonitis but he has an anastomosis and healing of this could be adversely affected by steroids. ABG is improving and base deficit is now normal. Will continue intubation/mech. ventilation until his inflammatory response improves and then, hopefully tomorrow, on POD#3 when he should start mobilizing 3rd spaced fluids, we can help him diurese and dry his lungs out a little, as much as his cardiovascular system will tolerate. Continue TPN, lovenox, PPI, IV abx. 05/01/18: POD#3. Improved HR. Pressures in high 90s systolic but now on propofol gtt for improved sedation/comfort. SaO2 in low 90s on 95%fiO2 and PEEP 10. CVP 8 this morning. Discussed with Hospitalist service. Will gently diurese him today and see how his BP tolerates this. Hopefully with help dry his lungs out and improve oxygenation/ventilation. Fluid status much improved, should start mobilizing 3rd space fluid today, already with increased UOP. Continue intubation/mech ventilation until pulmonary status improves. Continue TPN, lovenox, PPI, IV abx. Hospitalist changing abx coverage from unasyn to primaxin/vanco. Continue ICU care. 05/02/18: POD#4. Improving. HR normal. SBP in 90s on proprofol gtt. Oxygenation is improving, now on PEEP 12 and FiO2. CXR with improved aeration this morning but still with signs of infiltrate in bases c/w aspiration as well as pulmonary edema. Continue intubation/sedation/ventilation today. He is self -diuresing at this point. Will plan on weaning from vent when his settings can be weaned to minimal support settings, hopefully in the next couple of days. Continue TPN, IV abx, lovenox, PPI. 05/03/18: POD#5. Continued improvement. HR normal. SBP in low 100s. Oxygenation is improving, now on PEEP 5. He becomes very agitated when sedation is weaned and he desats and becomes very tachypneic. Will need to continue sedation holidays and let him work on the vent. CXR still with signs of pulmonary edema but he's auto diuresing. Replace K today. Continue intubation/ventilation today and will start checking daily weaning parameters. Continue TPN, IV abx, lovenox, PPI. 05/04/18: POD#6. Stable but still having fevers and WBC has leveled off at 14K on primaxin and vancomycin. If fevers and WBC don't improve by tomorrow morning then will get a CT abd/pelvis tomorrow. CXR pending. Low K, replace. Cotinue daily sedation holidays and vent weaning measures but won't plan to extubate until at least tomorrow after we know if fevers/WBC improve or CT reveals no need for reoperation (i.e. no anastomotic leak or abscess). Could also consider adding antifungal coverage to abx. Cotinue primaxin/vanco, TPN, lovenox, PPI. 05/05/18: POD#7. Continued fevers and leukocytosis. ICU staff are noticing "a lot" of oral secretions. Will get a CT chest/abdomen/pelvis and sinuses today. Continue IV abx, TPN, lovenox, PPI. If CT scans unremarkable (i.e. no anastomotic leak of fluid collections/abscess) then will work on weaning from vent with hope for extubation in next day or two, if possible. (2) Fever Status: Acute (3) Aspiration pneumonia due to vomit Status: Acute Central Venous Access Medical Necessity for Access: Hemodynamic Monitoring, IV Access, Medication Administration Condition Critical Time Spent: < 30 min Exam Sepsis Risk: Sepsis Risk Problem Qualifiers (1) Fever: Fever type: post-procedural Qualified Codes: R50.82 - Postprocedural fever (2) Aspiration pneumonia due to vomit: Laterality: bilateral BEATRIZ FERNANDEZ MD May 05, 2018 06:11
--- NOTE | 2018-05-05 08:07 | RADIOLOGY IMAGING REPORT ---
FAC[place] [facility] [place]IENT NAME: Cosmo Sarabia : 1970 MR: [id number] V: [id number] EXAM DATE: ORDERING PHYSICIAN: BEATRIZ FERNANDEZ TECHNOLOGIST: Location: [facility] [place] Patient: Cosmo Sarabia : 1970 Visit/Account:[id number] Date of Sevice: 05/05/2018 Single view of the chest Indication: Intubated. Comparison: Examination of the chest from yesterday. Findings: Cardiac silhouette is stable. Endotracheal tube and right IJ catheter unchanged. NG tube is at least within the stomach and caudal to the field of view. There are persistent interstitial and alveolar infiltrates left hilum and rig ht lower lobe. This may be on the basis of infectious/inflammatory infiltrate or hypoventilation. N o definite new effusion or pneumothorax. Overall, the lung volumes are slightly improved. IMPRESSION: 1. Compared to x-ray examination from yesterday, stable appearance of the support lines and tubes. 2. Slightly improved pulmonary aeration with persistent interstitial and alveolar perihilar consolid ation. Report Dictated By: Williams Johnson MD at 05/05/2018 8:00 AM Report E-Signed By: Williams Johnson MD at 05/05/2018 8:03 AM WSN:[id number]
[2018-05-05] MEDS ORDERED: fentaNYL CITR 250 MCG/5 ML AMP 1,500 MCG in NS 0.9% 150 ML BAG 120 ML IV PRN ×2 (08:25→08:45)
[2018-05-05] MEDS: FUROSEMIDE 20 MG/2 ML VIAL IVP SCH (08:44)
[2018-05-05] MEDS: ENOXAPARIN 40 MG/0.4ML SYR SC SCH (08:47)
[2018-05-05] MEDS: PANTOPRAZOLE SOD 40 MG IV VIAL IVP SCH (08:48)
[2018-05-05] MEDS: ORAL SUCTION/CHLORHX/SWAB KIT MT SCH ×2 (08:49→20:50)
[2018-05-05] MEDS: FLUCONAZOLE 200 MG/100ML PRMIX 100 ML IVPB SCH (09:37)
[2018-05-05] MEDS: NS(*) 0.9% 500 ML BAG 500 ML IV PRN (10:59)
[2018-05-05] MEDS ORDERED: IOPAMIDOL 76% 100 ML INFUS BTL 100 ML ONE (11:46)
--- NOTE | 2018-05-05 12:09 | Hospitalist Progress Note ---
Subjective Progress Notes Subjective 47M presented for SBO. Remains intubated and sedated, febrile. Bucking vent this am and significant overbreathing at times. Appears uncomfortable. Physical Exam Vital Signs Date Time Temp Pulse Resp B/P (MAP) Pulse Ox O2 Delivery O2 Flow Rate FiO2 05/05/18 10:15 90 22 123/80 (94) 90 Mechanical Ventilator 40.0 05/05/18 10:00 100.4 Intake and Output 05/06/18 07:00 Output Total 175 ml Balance -175 ml Output Urine Total 175 ml ENT: Other (ET tube) Neck: No Masses Cardiovascular: Normal Rhythm & Peripheral Pulses Respiratory: Clear to Auscultation (ventilated) Chest: No Masses GI: Other (moderate distension) : Normal (+ juárez) Lymph: No Adenopathy Musculoskeletal: No Weakness/Pain Integumentary: Skin Intact without Lesion / Mass Result Diagram: 05/05/1852605/05/18526 Monitor Interpretation: Normal Sinus Rhythm Assessment and Plan Problems: (1) Aspiration pneumonia Assessment & Plan: He did have an aspiration event prior to surgery. Bronchoscopy was performed immediately after to wash out the airways. He has developed bilateral infiltrates on his chest x-ray. We do have him on empiric treatment with vancomycin and Primaxin. Consider adding steroids if not improving. CVP has been running ~ 8. CXR shows persistent interstitial prominence/bibasilar infiltrates. Will continue to try gentle diuresis. Peep 12 FIO2 0.40, will decrease PEEP slowly, bucking vent this am. Appears uncomfortable and easily agitated when sedation decreased. Change supplemental sedation to fentanyl from Versed hope to provide more analgesia and possibly allow for less sedation. CT today per surgery. (2) Acute respiratory failure Assessment & Plan: He has remained intubated since surgery. He is receiving propofol for sedation. His O2 requirement improved with diuresis. Will continue Lasix 10mg IV daily to achieve some diuresis. PEEP 12. The FiO2 0.4 currently and will try to wean. Hope change to fentanyl from Versed improves agitation and may allow decrease in sedation from -2 RASS currently targeted. (3) Hyperglycemia Assessment & Plan: Glucose ranging from 112-190 with the TPN. We do have him on sliding scale level #2. (4) SBO (small bowel obstruction) Status: Acute Assessment & Plan: He did undergo exploratory laparotomy with adhesion lysis, liver biopsy and abdominal hernia repair. (5) Depression Status: Chronic Assessment & Plan: He is on chronic treatment with Effexor XR, which is currently on hold. 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 (7) Colon cancer Status: Resolved Assessment & Plan: Resolved. He did have liver nodules noted during the exploratory lap and a liver biopsy was done - negative for malignancy. Central Venous Access Medical Necessity for Access: Hemodynamic Monitoring, IV Access, Medication Administration Exam Sepsis Risk: No Definite Risk SARBJIT HSIEH DO May 05, 2018 12:09
--- NOTE | 2018-05-05 13:38 | RADIOLOGY IMAGING REPORT ---
FACILITY: [facility] PATIENT NAME: Cosmo Sarabia : 1970 MR: [id number] V: [id number] EXAM DATE: ORDERING PHYSICIAN: BEATRIZ FERNANDEZ [place]CHN[place] [facility] [place] : 1970 Visit/Account:[id number] Date of Sevice: 05/05/2018 EXAMINATION: CT sinus without IV contrast HISTORY: Copious amount of drainage from nose and mouth. One week postop small bowel resection. H istory of colon cancer. COMPARISON: None. TECHNIQUE: Contiguous axial images were obtained through the paranasal sinuses without intravenous c ontrast administration. Coronal and sagittal reformatted images were obtained from the axial source d ja. One of the following dose optimization techniques was utilized in the performance of this exam: Autom ated exposure control; adjustment of the mA and/or kV according to the patient's size; or use of an i terative reconstruction technique. Specific details can be referenced in the facility's radiology C T exam operational policy. FINDINGS: Maxillary sinuses: Moderate concentric mucosal thickening in the right maxillary sinus measuring near ly 2 cm in thickness. Mucosal thickening extends into the maxillary infundibulum. Small air-fluid l evel in the left maxillary sinus. Frontal sinuses: The left frontal sinus is not pneumatized, a normal variant. There is mucosal thic kening in the right inferior frontal sinus. Ethmoid air cells: Patchy mucosal thickening bilaterally, right greater than left. Sphenoid sinuses: The right sphenoid sinus is larger than the left. The intersinus septum inserts on the anterior wall of the left carotid canal. There is extensive mucosal thickening in both sphenoid sinuses, right greater than left, extending into the sphenoethmoidal recesses. Ostiomeatal units: There is mucosal thickening in the region of the right ostiomeatal unit. Nasal septum/nasal cavity: There is a right NG tube partly visualized. No significant nasal septal d eviation. Mastoids: The left mastoid air cells are nearly completely opacified, without bony destruction or coa lescence. No fluid in the middle ear cavity. There is no focal lesion in the visualized posterior n asopharynx. Orbits: Negative. Visualized intracranial contents/soft tissues: Negative. TMJs: Negative. There is an endotracheal tube partly visualized. There are secretions in the visualized pharynx. IMPRESSION: 1. Moderate to severe pansinusitis, right greater than left, with inflammation in the region of the right ostiomeatal unit. The sinus inflammation could be acute or chronic. 2. Left mastoid air cell fluid without bony destruction or middle ear fluid. This could be a steril e effusion related to the patient being intubated. Mastoiditis is in the differential. No obstructi ng lesion visualized in the posterior nasopharynx. Report Dictated By: Kassidy Quevedo MD at 05/05/2018 1:26 PM Report E-Signed By: Kassidy Quevedo MD at 05/05/2018 1:34 PM WSN:[id number]
[2018-05-05] MEDS: [UNRECOGNIZED DRUG - OTHER] IV SCH (13:53)
--- NOTE | 2018-05-05 14:08 | RADIOLOGY IMAGING REPORT ---
FACILITY: [facility] PATIENT NAME: Cosmo Sarabia : 1970 MR: [id number] V: [id number] EXAM DATE: [id number] ORDERING PHYSICIAN: BEATRIZ FERNANDEZ TECHNOLOGIST: Location: [facility] Patient: Cosmo Sarabia : 1970 Visit/Account:[id number] Date of Sevice: 05/05/2018 CT CHEST, ABDOMEN, AND PELVIS WITH CONTRAST CLINICAL INFORMATION: 1 week s/p small bowel resection, aspirationon, fevers. COMPARISON: CT April 25, 2018 TECHNIQUE: Axial CT images are obtained through the chest abdomen and pelvis following administration of 80 mL of Isovue 370 IV contrast. Reformatted coronal and sagittal images were reviewed. Dose Low ering Technique One of the following dose optimization techniques was utilized in the performance of this exam: Autom ated exposure control; adjustment of the mA and/or kV according to the patient's size; or use of an i terative reconstruction technique. Specific details can be referenced in the facility's radiology C T exam operational policy. FINDINGS: CT Chest: The cardiac chambers and great vessels are unremarkable. There is no mediastinal hematoma and there i s no pathologic intrathoracic, nor axillary lymph node enlargement. The images are degraded secondary to motion artifact. There are small bilateral posterior layering p leural effusions and airspace consolidation in the dependent portion of both lower lobes. There are also prominent interstitial changes seen in the pulmonary apices and small patchy area of airspace co nsolidation in the lingula. There is a 3.9 cm bulla in the posterior aspect of the right lower lobe There is an endotracheal tube in place that appears to be in good position. NG/OG tube is noted dist al tip in the gastric body. Right IJ catheter distal tip in superior vena cava The central airways are patent. There is a smooth-walled 4.7 x 2.8 x 5.3 cm ovoid soft tissue density nodule in the midline of the an terior chest wall. On sagittal image 76 of series 7 appears to be a a fracture through the mid sternum. This is likely artifactual due to motion artifact.. There is an old compression fracture T11 CT Abdomen and Pelvis: Liver: Numerous hepatic cysts are again seen. The largest now has developed a connection with the li bharti capsule where there is a lentiform fluid collection. History this is related to a recent liver b iopsy which unroofed this cyst some hyperdensity is now noted within this cyst which may represent a small amount of blood products. Biliary: The gallbladder appears distended which may be related to patient's n.p.o. status. There is some hyperdense material within the gallbladder which may represent sludge or stones. Pancreas: Normal appearance. Spleen: Normal appearance. Adrenal glands: Unremarkable. Kidneys / retroperitoneum: Small bilateral renal cysts. One round hypodensity in the anterior left k idney measures 1.7 cm in diameter and appears unchanged Rodriguez catheter is noted within the urinary bl adder. Bladder wall is mildly thickened although could be related to underdistention. There is air within the bladder likely related to the Rodriguez catheter Bowel / peritoneum / mesenteries: There is a small bowel anastomosis seen in the anterior right-sided the abdomen. Due to motion artifact the margins around the bowel are blurred. No obvious anastomot ic leakage is noted. There are fluid collections along the anterior abdomen; one is in the subcutane ous fat measuring 5.8 x 2.4 cm. There is a bilobed collection just posterior to the rectus muscles w hich appears to connect with the superficial collection. There is additional loculated collection in the anterior pelvis which appears to connect to the upper collection just posterior to the rectus mu scles . No internal air bubbles are seen in the baez appear thin. These are more likely postoperat varun collections Lymph node assessment: No pathologic lymph node enlargement. Vessels: No significant atherosclerotic calcification seen throughout a nonaneurysmal abdominal aorta and branches.Musculoskeletal / Body wall: Old compression fractures of T11 L1 and L4 again noted ski n lalo are noted in the midline of the abdomen and pelvis. Please see above discussion concerning probable postop fluid collections. IMPRESSION: 1. Images are degraded secondary to motion artifact. There are small bilateral posterior layering pl eural effusions and airspace consolidation in the dependent portion of both lower lobes consistent wi th infiltrates and/or atelectasis. Prominent interstitial changes also seen in the pulmonary apices and small patchy area of airspace consolidation lingula could represent additional infiltrates. Numerous hepatic cysts are again seen. The largest now has a connection to the liver capsule were th ere is a lentiform fluid collection are consistent with the history of a recent liver biopsy under th e the cyst incidentally. Some hyperdense material within the cyst likely represents a small amount o f blood products Gallbladder is distended likely related to patient's n.p.o. status. Some hyperdense material within the gallbladder may represent sludge or stones Small bowel anastomosis in the anterior right-sided abdomen is present. No obvious anastomotic leak is seen although images are degraded due to motion artifact. There are fluid collections along the anterior abdomen; one in the subcutaneous fat and several addit ional collections along the anterior abdomen/pelvis which appear to be interconnected. No internal a ir bubbles are seen in the baez appear thin. Additional chronic findings as described 2. No acute intraabdominal or pelvic CT abnormality. Report Dictated By: Pippa Marcelo MD at 05/05/2018 12:55 PM Report E-Signed By: Pippa Marcelo MD at 05/05/2018 2:04 PM [id number]
[2018-05-06] VITALS (96 sets, daily range): BP systolic 86–138; BP diastolic 53–87
[2018-05-06] MEDS: PROPOFOL(*)1000 MG/100 ML VIAL 100 ML IV PRN ×8 (01:51→23:29)
[2018-05-06] MEDS: fentaNYL CITR 250 MCG/5 ML AMP 1,500 MCG in NS 0.9% 150 ML BAG 120 ML IV PRN ×3 (01:52→21:01)
[2018-05-06] MEDS: IMIPENEM/CILASTA(*) 500MG VIAL 500 MG in NS(*) 0.9% 100 ML BAG 100 ML IVPB SCH ×4 (02:21→20:31)
[2018-05-06] MEDS: [UNRECOGNIZED DRUG - OTHER] IV SCH ×2 (02:28→16:54)
[2018-05-06] MEDS: VANCOMYCIN(*) 1 GM VIAL 1 GM, VANCOMYCIN (*) 0.5 GM VIAL 0.5 GM in NS(*) 0.9% 250 ML BA... IVPB SCH ×3 (02:53→18:41)
[2018-05-06] MEDS: ACETAMINOPHEN(*)1000 MG/100 ML 100 ML IVPB PRN ×4 (02:53→20:31)
[2018-05-06 05:41] LABS: PLATELET COUNT, AUTOMATED 294 K/uL (150-450)
--- NOTE | 2018-05-06 07:41 | RADIOLOGY IMAGING REPORT ---
FACILITY: [facility] [place] PATIENT NAME: Cosmo Sarabia : 1970 MR: [id number] V: [id number] EXAM DATE: ORDERING PHYSICIAN: SARBJIT FISCHER TECHNOLOGIST: [place] [facility] [place]: Cosmo Sarabia : 1970 Visit/Account:[id number] Date of Sevice: 05/06/2018 CHEST SINGLE AP Additional pertinent History: Intubated COMPARISON STUDIES: 05/05/2018 FINDINGS: Support lines and catheters: ET tube, right central line and NG tube are reidentified and unchanged i n position Lungs and Pleura: Improvement in the degree of aeration of both lung granados compatible with improvin g pulmonary edema pattern. Areas of atelectasis and volume loss in the right lower lung medially are also showing improvement. Persistent mild patchy infiltrative changes remaining both lung granados left greater than right Heart and vasculature: Negative. Muriel and Mediastinum: Negative. Bones and Chest wall: Negative. Upper Abdomen: Negative. IMPRESSION: 1. Distinct improvement in the aeration of both lung granados likely related to improvement in what had been a interstitial pulmonary edema pattern. Persistent residual interstitial alveolar lung opacitie s left greater than right. Report Dictated By: Myron Day MD at 05/06/2018 7:35 AM Report E-Signed By: Myron Day MD at 05/06/2018 7:37 AM WSN:[id number]
[2018-05-06] MEDS: ORAL SUCTION/CHLORHX/SWAB KIT MT SCH ×2 (08:55→20:31)
[2018-05-06] MEDS: ENOXAPARIN 40 MG/0.4ML SYR SC SCH (08:57)
--- NOTE | 2018-05-06 09:07 | General Surgery Progress Note ---
Subjective Progress Notes Subjective Intubated/sedated Physical Exam Vital Signs Date Time Temp Pulse Resp B/P (MAP) Pulse Ox O2 Delivery O2 Flow Rate FiO2 05/06/18 08:17 30.0 05/06/18 07:21 89 19 05/06/18 07:21 98 Mechanical Ventilator 05/06/18 06:15 100.6 96/63 (74) General Appearance: Alert, Awake, No Acute Distress, Afebrile GI: Other (Soft, midline incision looks good, no erythema or drainage.) Extremities: Warm, Perfused Result Diagram: 05/06/18 0505 05/06/18 0505 Monitor Interpretation: Normal Sinus Rhythm Assessment and Plan Problems: (1) SBO (small bowel obstruction) Status: Acute Assessment & Plan: 04/25/18: This is his 1st small bowel obstruction. The ventral/incisional hernia is reducible so if this was the cause of the obstruction, he should improve fairly rapidly. Adhesions are also a strong possibility given his history of colon resection for colon cancer. We will start managing this conservatively with NG tube decompression and bowel rest as well as IV fluids. He seems to be very dehydrated based on his labs and so we' ll resuscitate him with crystalloid. If he fails to improve after 48-72 hours then he may need surgical exploration. I have explained this plan to him in great detail and he seems to understand and seems agreeable with this plan. We' ll start Lovenox for DVT prophylaxis and Protonix for GI prophylaxis. We will use intermittent Dilaudid as well as when necessary IV Tylenol and Toradol for pain control. 04/26/18: Doing better clinically. No flatus or BM yet. KUB unchanged. Continue resuscitation, bowel rest and decompression, IV fluids. Pain control, pulmonary hygiene, lovenox, PPI. 04/27/18: Seems to be improving. KUB with improving but still dilated loops of small bowel. Will get a water soluble SBFT today. NG tube removed last night at patient request after warning him that it may have to be replaced if his obstruction worsens. Continue bowel rest, IV fluids, etc. 04/28/18: No improvement, worse since SBFT. Contrast has not passed obstruction. Will proceed with ex-lap today to look for cause of obstruction and treat it. Will also need to address the hernia(s) and how I do this depends on whether bowel resection is necessary. I have explained surgery, alternatives, risks, recovery to the patient and his questions have been answered. He would like to proceed with surgery. Will place central line as well so we can start TPN postop. 04/29/18: POD#1 s/p bronchoscopy, ex-lap, small bowel resection, primary repair of several abdominal wall hernias, liver biopsy, central line placement. Stable overnight but hyperdynamic with mild tachycardia and mild fevers. Likely aspirated bile after induction. Will keep intubated today and let him physiologically recover. Will continue fluid recuscitation today. Continue IV abx, unasyn and vanco. Continue TPN. PPI and lovenox for prophylaxis. Will get PT/OT to see him once extubated. 04/30/18: POD#2. Tachycardic and hypoxic. Physiologic response to surgery and likely bile aspiration and now with likely chemical pneumonitis. Will increase PEEP to 10. CVP up to 15, could consider diuresis especially given fluffy appearance of lungs on CXR this morning. May also consider steroids for pneumonitis but he has an anastomosis and healing of this could be adversely affected by steroids. ABG is improving and base deficit is now normal. Will continue intubation/mech. ventilation until his inflammatory response improves and then, hopefully tomorrow, on POD#3 when he should start mobilizing 3rd spaced fluids, we can help him diurese and dry his lungs out a little, as much as his cardiovascular system will tolerate. Continue TPN, lovenox, PPI, IV abx. 05/01/18: POD#3. Improved HR. Pressures in high 90s systolic but now on propofol gtt for improved sedation/comfort. SaO2 in low 90s on 95%fiO2 and PEEP 10. CVP 8 this morning. Discussed with Hospitalist service. Will gently diurese him today and see how his BP tolerates this. Hopefully with help dry his lungs out and improve oxygenation/ventilation. Fluid status much improved, should start mobilizing 3rd space fluid today, already with increased UOP. Continue intubation/mech ventilation until pulmonary status improves. Continue TPN, lovenox, PPI, IV abx. Hospitalist changing abx coverage from unasyn to primaxin/vanco. Continue ICU care. 05/02/18: POD#4. Improving. HR normal. SBP in 90s on proprofol gtt. Oxygenation is improving, now on PEEP 12 and FiO2. CXR with improved aeration this morning but still with signs of infiltrate in bases c/w aspiration as well as pulmonary edema. Continue intubation/sedation/ventilation today. He is self -diuresing at this point. Will plan on weaning from vent when his settings can be weaned to minimal support settings, hopefully in the next couple of days. Continue TPN, IV abx, lovenox, PPI. 05/03/18: POD#5. Continued improvement. HR normal. SBP in low 100s. Oxygenation is improving, now on PEEP 5. He becomes very agitated when sedation is weaned and he desats and becomes very tachypneic. Will need to continue sedation holidays and let him work on the vent. CXR still with signs of pulmonary edema but he's auto diuresing. Replace K today. Continue intubation/ventilation today and will start checking daily weaning parameters. Continue TPN, IV abx, lovenox, PPI. 05/04/18: POD#6. Stable but still having fevers and WBC has leveled off at 14K on primaxin and vancomycin. If fevers and WBC don't improve by tomorrow morning then will get a CT abd/pelvis tomorrow. CXR pending. Low K, replace. Cotinue daily sedation holidays and vent weaning measures but won't plan to extubate until at least tomorrow after we know if fevers/WBC improve or CT reveals no need for reoperation (i.e. no anastomotic leak or abscess). Could also consider adding antifungal coverage to abx. Cotinue primaxin/vanco, TPN, lovenox, PPI. 05/05/18: POD#7. Continued fevers and leukocytosis. ICU staff are noticing "a lot" of oral secretions. Will get a CT chest/abdomen/pelvis and sinuses today. Continue IV abx, TPN, lovenox, PPI. If CT scans unremarkable (i.e. no anastomotic leak of fluid collections/abscess) then will work on weaning from vent with hope for extubation in next day or two, if possible. 05/06/18: POD#8. CT yesterday reveals sinusitis and some fluid collections adjacent and in his abdominal wall, likely seromas related to surgery and his incisional hernia repairs. No obvious signs of anastomotic leak but motion artifact obscures the images to some degree. Improving from respiratory standpoint but still having fevers. WBC slowly coming down but was 11K yesterday and this morning. Will follow this. Continue bowel rest, TPN, IV abx. I would like to see fevers and WBC normalize before extubating him. Continue lovenox, PPI, etc. (2) Fever Status: Acute (3) Aspiration pneumonia due to vomit Status: Acute Central Venous Access Medical Necessity for Access: Hemodynamic Monitoring, IV Access, Medication Administration Condition Stable. Time Spent: < 30 min Exam Sepsis Risk: Sepsis Risk Problem Qualifiers (1) Fever: Fever type: post-procedural Qualified Codes: R50.82 - Postprocedural fever (2) Aspiration pneumonia due to vomit: Laterality: bilateral BEATRIZ FERNANDEZ MD May 06, 2018 09:07
[2018-05-06] MEDS: PANTOPRAZOLE SOD 40 MG IV VIAL IVP SCH (09:13)
[2018-05-06] MEDS: FUROSEMIDE 20 MG/2 ML VIAL IVP SCH (09:26)
[2018-05-06] MEDS: FLUCONAZOLE 200 MG/100ML PRMIX 100 ML IVPB SCH (10:11)
--- NOTE | 2018-05-06 10:35 | Hospitalist Progress Note ---
Subjective Progress Notes Subjective This patient has remained in the ICU since surgery. He had no acute events overnight. Patient Complains of: Cardiovascular: No: Chest Pain Respiratory: No: Shortness of Breath Physical Exam Vital Signs Date Time Temp Pulse Resp B/P (MAP) Pulse Ox O2 Delivery O2 Flow Rate FiO2 05/06/18 10:19 30.0 05/06/18 09:45 88 20 108/65 (79) 91 Mechanical Ventilator 05/06/18 09:45 100.4 Intake and Output 05/07/18 07:00 Intake Total 215 ml Output Total 400 ml Balance -185 ml IV Total 215 ml Output Urine Total 400 ml Neuro: Other (Sedated to RASS -2.) Eyes: PERRLA Respiratory: Other (Bilateral breath sounds present.) GI: Soft and Non-Tender Extremities: Edema Integumentary: No Cyanosis Result Diagram: 05/06/18 0505 05/06/18 0505 Item Value Date Time Vancomycin Level Trough 17.82 ug/ml 05/05/18 1008 Item Value Date Time Arterial Blood pH 7.51 H 05/06/18 1005 Arterial Blood Partial Pressure CO2 33 mmHg 05/06/18 1005 Arterial Blood Partial Pressure O2 69 mmHg 05/06/18 1005 Arterial Blood HCO3 26 mmol/L 05/06/18 1005 Arterial Blood Oxygen Saturation 95 % 05/06/18 1005 Item Value Date Time Blood Culture - Preliminary Resulted 05/04/18 0745 Blood Peripheral Draw NO GROWTH AFTER 2 DAYS, REINCUBATED Blood Culture - Preliminary Resulted 05/04/18 0700 Blood Line Draw NO GROWTH AFTER 2 DAYS, REINCUBATED Urine Culture - Final Complete 05/04/18 0000 Rodriguez Catheter Urine NO GROWTH AFTER 2 DAYS Monitor Interpretation: Normal Sinus Rhythm Assessment and Plan Problems: (1) Aspiration pneumonia Assessment & Plan: He did have an aspiration event prior to surgery. Bronchoscopy was performed immediately after to wash out the airways. He developed bilateral infiltrates on his chest x-ray. We have him on empiric treatment with vancomycin and Primaxin. Fluconazole was also added on 05/04. His cultures have been negative. (2) Acute respiratory failure Assessment & Plan: He has remained intubated since surgery (04/28). He remains on SIMV, but has tolerated a CPAP trial initiated this morning. We have also been able to wean his PEEP and PSV. His chest x-ray does show improvement. We will continue with CPAP with a goal of extubation tomorrow. He may require a tracheostomy if this is not achievable. (3) Hyperglycemia Assessment & Plan: This is likely secondary to TPN. Insulin is included in his TPN and he is also on sliding scale level #2. (4) SBO (small bowel obstruction) Status: Acute Assessment & Plan: He did undergo exploratory laparotomy with adhesion lysis, liver biopsy and abdominal hernia repair. (5) Depression Status: Chronic Assessment & Plan: He is on chronic treatment with Effexor XR, which is currently on hold. 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 (7) Colon cancer Status: Resolved Assessment & Plan: Resolved. He did have liver nodules noted during the exploratory lap and a liver biopsy was done - negative for malignancy. (8) Hypervolemia Assessment & Plan: He has had approximately 10kg weight gain since admission. He is now on scheduled Lasix and his weights and chest x-ray are improving. Central Venous Access Medical Necessity for Access: Hemodynamic Monitoring, IV Access, Medication Administration Exam Sepsis Risk: Sepsis Risk BEATRIZ PEREZ DO May 06, 2018 10:35
[2018-05-07] VITALS (96 sets, daily range): BP systolic 83–137; BP diastolic 53–84
[2018-05-07] MEDS: PROPOFOL(*)1000 MG/100 ML VIAL 100 ML IV PRN ×9 (01:50→22:54)
[2018-05-07] MEDS: NS(*) 0.9% 500 ML BAG 500 ML IV PRN (02:21)
[2018-05-07] MEDS: ACETAMINOPHEN(*)1000 MG/100 ML 100 ML IVPB PRN ×3 (02:21→19:29)
[2018-05-07] MEDS: IMIPENEM/CILASTA(*) 500MG VIAL 500 MG in NS(*) 0.9% 100 ML BAG 100 ML IVPB SCH ×4 (02:21→20:37)
[2018-05-07] MEDS: VANCOMYCIN(*) 1 GM VIAL 1 GM, VANCOMYCIN (*) 0.5 GM VIAL 0.5 GM in NS(*) 0.9% 250 ML BA... IVPB SCH ×3 (02:25→19:18)
[2018-05-07] MEDS ORDERED: NICOTINE 14 MG/24 HR PATCH TD ONE (03:15)
[2018-05-07 05:24] LABS: PLATELET COUNT, AUTOMATED 300 K/uL (150-450)
--- NOTE | 2018-05-07 05:50 | RADIOLOGY IMAGING REPORT ---
FACILITY: [facility] [place] PATIENT NAME: Cosmo Sarabia : 1970 MR: [id number] V: [id number] EXAM DATE: [id number] ORDERING PHYSICIAN: BEATRIZ PEREZ TECHNOLOGIST: Location: Patient: Cosmo Sarabia : 1970 Visit/Account:[id number] Date of Sevice: 05/07/2018 CHEST SINGLE AP 05/07/2018 06:00 hours. HISTORY: Intubated. COMPARISON: 05/06/2018 and studies dating to 04/28/2018. TECHNIQUE: Portable AP view of the chest. FINDINGS: Tubes/lines/hardware: ET tube terminates 4.5 cm above the emiliano. NG or OG tube terminates off the in ferior x-ray, at least as far as the upper stomach. Right jugular catheter terminates at the upper ca voatrial junction. There are external chest leads. Pulmonary: Lung volumes are lower. There are bibasilar opacities. Taking into account lower lung volu mes, probably not significantly changed. There is no pneumothorax or pleural effusion. Cardiomediastinal: Cardiac and mediastinal silhouettes are within normal limits. Bones/soft tissues: No acute osseous abnormality. The visible abdomen is normal. IMPRESSION: 1. When taking into account lower lung volumes, no significant interval change. 2. Tubes and lines as above Report Dictated By: Deann Connors at 05/07/2018 5:45 AM Report E-Signed By: Deann Connors at 05/07/2018 5:47 AM WSN:[id number]
[2018-05-07] MEDS: fentaNYL CITR 250 MCG/5 ML AMP 1,500 MCG in NS 0.9% 150 ML BAG 120 ML IV PRN ×2 (06:14→17:02)
[2018-05-07] MEDS: [UNRECOGNIZED DRUG - OTHER] IV SCH ×2 (06:14→19:59)
[2018-05-07] MEDS ORDERED: KCL (*) 20 MEQ/100 ML PREMIX 100 ML IV ONE (07:35)
--- NOTE | 2018-05-07 08:24 | General Surgery Progress Note ---
Subjective Progress Notes Subjective Intubated/sedated Physical Exam Vital Signs Date Time Temp Pulse Resp B/P (MAP) Pulse Ox O2 Delivery O2 Flow Rate FiO2 05/07/18 08:00 90 05/07/18 07:30 40.0 05/07/18 07:30 91 Mechanical Ventilator 05/07/18 06:30 16 92/57 (69) 05/07/18 06:00 99.4 General Appearance: Other (Intubated/sedated) GI: Other (Soft, incision looks good without erythema or drainage) Extremities: Warm, Perfused Result Diagram: 05/07/18 0505 05/07/18 0505 Monitor Interpretation: Normal Sinus Rhythm Assessment and Plan Problems: (1) SBO (small bowel obstruction) Status: Acute Assessment & Plan: 04/25/18: This is his 1st small bowel obstruction. The ventral/incisional hernia is reducible so if this was the cause of the obstruction, he should improve fairly rapidly. Adhesions are also a strong possibility given his history of colon resection for colon cancer. We will start managing this conservatively with NG tube decompression and bowel rest as well as IV fluids. He seems to be very dehydrated based on his labs and so we' ll resuscitate him with crystalloid. If he fails to improve after 48-72 hours then he may need surgical exploration. I have explained this plan to him in great detail and he seems to understand and seems agreeable with this plan. We' ll start Lovenox for DVT prophylaxis and Protonix for GI prophylaxis. We will use intermittent Dilaudid as well as when necessary IV Tylenol and Toradol for pain control. 04/26/18: Doing better clinically. No flatus or BM yet. KUB unchanged. Continue resuscitation, bowel rest and decompression, IV fluids. Pain control, pulmonary hygiene, lovenox, PPI. 04/27/18: Seems to be improving. KUB with improving but still dilated loops of small bowel. Will get a water soluble SBFT today. NG tube removed last night at patient request after warning him that it may have to be replaced if his obstruction worsens. Continue bowel rest, IV fluids, etc. 04/28/18: No improvement, worse since SBFT. Contrast has not passed obstruction. Will proceed with ex-lap today to look for cause of obstruction and treat it. Will also need to address the hernia(s) and how I do this depends on whether bowel resection is necessary. I have explained surgery, alternatives, risks, recovery to the patient and his questions have been answered. He would like to proceed with surgery. Will place central line as well so we can start TPN postop. 04/29/18: POD#1 s/p bronchoscopy, ex-lap, small bowel resection, primary repair of several abdominal wall hernias, liver biopsy, central line placement. Stable overnight but hyperdynamic with mild tachycardia and mild fevers. Likely aspirated bile after induction. Will keep intubated today and let him physiologically recover. Will continue fluid recuscitation today. Continue IV abx, unasyn and vanco. Continue TPN. PPI and lovenox for prophylaxis. Will get PT/OT to see him once extubated. 04/30/18: POD#2. Tachycardic and hypoxic. Physiologic response to surgery and likely bile aspiration and now with likely chemical pneumonitis. Will increase PEEP to 10. CVP up to 15, could consider diuresis especially given fluffy appearance of lungs on CXR this morning. May also consider steroids for pneumonitis but he has an anastomosis and healing of this could be adversely affected by steroids. ABG is improving and base deficit is now normal. Will continue intubation/mech. ventilation until his inflammatory response improves and then, hopefully tomorrow, on POD#3 when he should start mobilizing 3rd spaced fluids, we can help him diurese and dry his lungs out a little, as much as his cardiovascular system will tolerate. Continue TPN, lovenox, PPI, IV abx. 05/01/18: POD#3. Improved HR. Pressures in high 90s systolic but now on propofol gtt for improved sedation/comfort. SaO2 in low 90s on 95%fiO2 and PEEP 10. CVP 8 this morning. Discussed with Hospitalist service. Will gently diurese him today and see how his BP tolerates this. Hopefully with help dry his lungs out and improve oxygenation/ventilation. Fluid status much improved, should start mobilizing 3rd space fluid today, already with increased UOP. Continue intubation/mech ventilation until pulmonary status improves. Continue TPN, lovenox, PPI, IV abx. Hospitalist changing abx coverage from unasyn to primaxin/vanco. Continue ICU care. 05/02/18: POD#4. Improving. HR normal. SBP in 90s on proprofol gtt. Oxygenation is improving, now on PEEP 12 and FiO2. CXR with improved aeration this morning but still with signs of infiltrate in bases c/w aspiration as well as pulmonary edema. Continue intubation/sedation/ventilation today. He is self -diuresing at this point. Will plan on weaning from vent when his settings can be weaned to minimal support settings, hopefully in the next couple of days. Continue TPN, IV abx, lovenox, PPI. 05/03/18: POD#5. Continued improvement. HR normal. SBP in low 100s. Oxygenation is improving, now on PEEP 5. He becomes very agitated when sedation is weaned and he desats and becomes very tachypneic. Will need to continue sedation holidays and let him work on the vent. CXR still with signs of pulmonary edema but he's auto diuresing. Replace K today. Continue intubation/ventilation today and will start checking daily weaning parameters. Continue TPN, IV abx, lovenox, PPI. 05/04/18: POD#6. Stable but still having fevers and WBC has leveled off at 14K on primaxin and vancomycin. If fevers and WBC don't improve by tomorrow morning then will get a CT abd/pelvis tomorrow. CXR pending. Low K, replace. Cotinue daily sedation holidays and vent weaning measures but won't plan to extubate until at least tomorrow after we know if fevers/WBC improve or CT reveals no need for reoperation (i.e. no anastomotic leak or abscess). Could also consider adding antifungal coverage to abx. Cotinue primaxin/vanco, TPN, lovenox, PPI. 05/05/18: POD#7. Continued fevers and leukocytosis. ICU staff are noticing "a lot" of oral secretions. Will get a CT chest/abdomen/pelvis and sinuses today. Continue IV abx, TPN, lovenox, PPI. If CT scans unremarkable (i.e. no anastomotic leak of fluid collections/abscess) then will work on weaning from vent with hope for extubation in next day or two, if possible. 05/06/18: POD#8. CT yesterday reveals sinusitis and some fluid collections adjacent and in his abdominal wall, likely seromas related to surgery and his incisional hernia repairs. No obvious signs of anastomotic leak but motion artifact obscures the images to some degree. Improving from respiratory standpoint but still having fevers. WBC slowly coming down but was 11K yesterday and this morning. Will follow this. Continue bowel rest, TPN, IV abx. I would like to see fevers and WBC normalize before extubating him. Continue lovenox, PPI, etc. 05/07/18: POD#9. Seems to be doing a little better. WBC is down this morning. Still having fevers. Will see if they improve over the next day. May try to wean from vent with hope for extubation tomorrow. Continue bowel rest, TPN, IV abx, lovenox, PPI, etc. Replace K. (2) Fever Status: Acute (3) Aspiration pneumonia due to vomit Status: Acute Central Venous Access Medical Necessity for Access: Hemodynamic Monitoring, IV Access, Medication Administration Condition Stable. Time Spent: < 30 min Exam Sepsis Risk: Sepsis Risk Problem Qualifiers (1) Fever: Fever type: post-procedural Qualified Codes: R50.82 - Postprocedural fever (2) Aspiration pneumonia due to vomit: Laterality: bilateral BEATRIZ FERNANDEZ MD May 07, 2018 08:24
[2018-05-07] MEDS: FUROSEMIDE 20 MG/2 ML VIAL IVP SCH (08:52)
[2018-05-07] MEDS: PANTOPRAZOLE SOD 40 MG IV VIAL IVP SCH (08:56)
[2018-05-07] MEDS: ENOXAPARIN 40 MG/0.4ML SYR SC SCH (08:56)
[2018-05-07] MEDS: ORAL SUCTION/CHLORHX/SWAB KIT MT SCH ×2 (08:57→20:37)
[2018-05-07] MEDS: FLUCONAZOLE 200 MG/100ML PRMIX 100 ML IVPB SCH (10:14)
--- NOTE | 2018-05-07 10:24 | Hospitalist Progress Note ---
Subjective Progress Notes Subjective The patient remains intubated and sedated. Physical Exam Vital Signs Date Time Temp Pulse Resp B/P (MAP) Pulse Ox O2 Delivery O2 Flow Rate FiO2 05/07/18 09:15 86 18 95/57 (70) 95 Mechanical Ventilator 40.0 05/07/18 08:00 99.8 Intake and Output 05/08/18 07:00 Output Total 225 ml Balance -225 ml Output Urine Total 225 ml General Appearance: Other (Sedated. ET tube in place.) Neuro: Other (Sedated.) Cardiovascular: Regular Rate and Rhythm Respiratory: Other (Coarse breath sounds anteriorly.) Chest: Other (Central line site clean and dry. No redness. ) GI: Other (Soft, slightly distended. Abdominal wall hernia midline superiorly. Abdominal wound is clean and dry. [place] remain in place. No active BS heard.) Extremities: Perfused, Other (No edema.) Integumentary: Other (Abdominal wound without redness or discharge. Lupis remain intact.) Result Diagram: 05/07/18 0505 05/07/18 0505 Monitor Interpretation: Normal Sinus Rhythm Assessment and Plan Problems: (1) Aspiration pneumonia Assessment & Plan: He did have an aspiration event prior to surgery. Bronchoscopy was performed immediately after to wash out the airways. He developed bilateral infiltrates on his chest x-ray. We have him on empiric treatment with vancomycin and Primaxin. Fluconazole was also added on 05/04. His cultures have been negative. His temperature has normalized and his WBC has improved. (2) Acute respiratory failure Assessment & Plan: He has remained intubated since surgery (04/28). He remains on SIMV, but tolerated a CPAP trial yesterday. His PEEP and PSV were weaned but had to be increased after he likely fatigued from several hours of CPAP. His chest x-ray does show improvement. Will continue to wean today and place on CPAP if he can tolerate this. If he does well on CPAP today, could consider extubation in the next day or so. He may require a tracheostomy if this is not achievable. (3) Hyperglycemia Assessment & Plan: This is likely secondary to TPN. Insulin is included in his TPN and he is also on sliding scale level #2. (4) SBO (small bowel obstruction) Status: Acute Assessment & Plan: He did undergo exploratory laparotomy with adhesion lysis, liver biopsy and abdominal hernia repair. (5) Depression Status: Chronic Assessment & Plan: He is on chronic treatment with Effexor XR, which is currently on hold. 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 (7) Colon cancer Status: Resolved Assessment & Plan: Resolved. He did have liver nodules noted during the exploratory lap and a liver biopsy was done - negative for malignancy. (8) Hypervolemia Assessment & Plan: He has had approximately 10kg weight gain since admission. He is now on scheduled Lasix and his weights and chest x-ray are improving. Central Venous Access Medical Necessity for Access: Hemodynamic Monitoring, IV Access, Medication Administration Time Spent on Plan of Care: < 30 min Exam Sepsis Risk: Sepsis Risk YOANA SALVADOR MD May 07, 2018 10:24
[2018-05-08] VITALS (75 sets, daily range): BP systolic 88–141; BP diastolic 50–89
[2018-05-08] MEDS: fentaNYL CITR 250 MCG/5 ML AMP 1,500 MCG in NS 0.9% 150 ML BAG 120 ML IV PRN (02:22)
[2018-05-08] MEDS: IMIPENEM/CILASTA(*) 500MG VIAL 500 MG in NS(*) 0.9% 100 ML BAG 100 ML IVPB SCH ×4 (02:22→21:34)
[2018-05-08] MEDS: VANCOMYCIN(*) 1 GM VIAL 1 GM, VANCOMYCIN (*) 0.5 GM VIAL 0.5 GM in NS(*) 0.9% 250 ML BA... IVPB SCH (02:54)
[2018-05-08] MEDS: PROPOFOL(*)1000 MG/100 ML VIAL 100 ML IV PRN ×2 (03:28→06:08)
[2018-05-08 05:38] LABS: PLATELET COUNT, AUTOMATED 363 K/uL (150-450)
--- NOTE | 2018-05-08 05:55 | RADIOLOGY IMAGING REPORT ---
FACILITY: [facility] [place] PATIENT NAME: Cosmo Sarabia : 1970 MR: [id number] V: [id number] EXAM DATE: [id number] ORDERING PHYSICIAN: YOANA SALVADOR TECHNOLOGIST: Location: [facility] Patient: Cosmo Sarabia : 1970 Visit/Account:[id number] Date of Sevice: 05/08/2018 CHEST SINGLE AP Additional pertinent History: Intubated COMPARISON STUDIES: ET tube well-positioned 5 cm from the emiliano. NG tube within the stomach. Right IJ extending to the cavoatrial junction FINDINGS: Support lines and catheters: EKG wire leads. Lungs and Pleura: Lung granados better expanded. Central vascular engorgement and perihilar interstiti al pulmonary edema showing improvement. Mild residual bibasilar interstitial reticular nodular lung c hanges. Heart and vasculature: Hearts mildly large. Central vasculature grossly normal. Muriel and Mediastinum: Negative. Bones and Chest wall: Negative. Upper Abdomen: Negative. IMPRESSION: 1. Improvement in the aeration in the lung granados when compared to previous study. Persistent interst itial reticular nodular lung changes symmetrically seen throughout both lung granados. Report Dictated By: Myron Day MD at 05/08/2018 5:43 AM Report E-Signed By: Myron Day MD at 05/08/2018 5:50 AM WSN:[id number]
--- NOTE | 2018-05-08 07:35 | General Surgery Progress Note ---
Subjective Progress Notes Subjective Intubated/sedated Physical Exam Vital Signs Date Time Temp Pulse Resp B/P (MAP) Pulse Ox O2 Delivery O2 Flow Rate FiO2 05/08/18 07:09 18 05/08/18 07:07 40.0 05/08/18 06:45 100.4 84 99/60 (73) 95 Mechanical Ventilator General Appearance: Alert, Awake, No Acute Distress, Afebrile GI: Other (Soft, incision looks good without erythema or drainage) Extremities: Warm, Perfused Result Diagram: 05/08/18 0516 05/08/18 0515 Monitor Interpretation: Normal Sinus Rhythm Assessment and Plan Problems: (1) SBO (small bowel obstruction) Status: Acute Assessment & Plan: 04/25/18: This is his 1st small bowel obstruction. The ventral/incisional hernia is reducible so if this was the cause of the obstruction, he should improve fairly rapidly. Adhesions are also a strong possibility given his history of colon resection for colon cancer. We will start managing this conservatively with NG tube decompression and bowel rest as well as IV fluids. He seems to be very dehydrated based on his labs and so we' ll resuscitate him with crystalloid. If he fails to improve after 48-72 hours then he may need surgical exploration. I have explained this plan to him in great detail and he seems to understand and seems agreeable with this plan. We' ll start Lovenox for DVT prophylaxis and Protonix for GI prophylaxis. We will use intermittent Dilaudid as well as when necessary IV Tylenol and Toradol for pain control. 04/26/18: Doing better clinically. No flatus or BM yet. KUB unchanged. Continue resuscitation, bowel rest and decompression, IV fluids. Pain control, pulmonary hygiene, lovenox, PPI. 04/27/18: Seems to be improving. KUB with improving but still dilated loops of small bowel. Will get a water soluble SBFT today. NG tube removed last night at patient request after warning him that it may have to be replaced if his obstruction worsens. Continue bowel rest, IV fluids, etc. 04/28/18: No improvement, worse since SBFT. Contrast has not passed obstruction. Will proceed with ex-lap today to look for cause of obstruction and treat it. Will also need to address the hernia(s) and how I do this depends on whether bowel resection is necessary. I have explained surgery, alternatives, risks, recovery to the patient and his questions have been answered. He would like to proceed with surgery. Will place central line as well so we can start TPN postop. 04/29/18: POD#1 s/p bronchoscopy, ex-lap, small bowel resection, primary repair of several abdominal wall hernias, liver biopsy, central line placement. Stable overnight but hyperdynamic with mild tachycardia and mild fevers. Likely aspirated bile after induction. Will keep intubated today and let him physiologically recover. Will continue fluid recuscitation today. Continue IV abx, unasyn and vanco. Continue TPN. PPI and lovenox for prophylaxis. Will get PT/OT to see him once extubated. 04/30/18: POD#2. Tachycardic and hypoxic. Physiologic response to surgery and likely bile aspiration and now with likely chemical pneumonitis. Will increase PEEP to 10. CVP up to 15, could consider diuresis especially given fluffy appearance of lungs on CXR this morning. May also consider steroids for pneumonitis but he has an anastomosis and healing of this could be adversely affected by steroids. ABG is improving and base deficit is now normal. Will continue intubation/mech. ventilation until his inflammatory response improves and then, hopefully tomorrow, on POD#3 when he should start mobilizing 3rd spaced fluids, we can help him diurese and dry his lungs out a little, as much as his cardiovascular system will tolerate. Continue TPN, lovenox, PPI, IV abx. 05/01/18: POD#3. Improved HR. Pressures in high 90s systolic but now on propofol gtt for improved sedation/comfort. SaO2 in low 90s on 95%fiO2 and PEEP 10. CVP 8 this morning. Discussed with Hospitalist service. Will gently diurese him today and see how his BP tolerates this. Hopefully with help dry his lungs out and improve oxygenation/ventilation. Fluid status much improved, should start mobilizing 3rd space fluid today, already with increased UOP. Continue intubation/mech ventilation until pulmonary status improves. Continue TPN, lovenox, PPI, IV abx. Hospitalist changing abx coverage from unasyn to primaxin/vanco. Continue ICU care. 05/02/18: POD#4. Improving. HR normal. SBP in 90s on proprofol gtt. Oxygenation is improving, now on PEEP 12 and FiO2. CXR with improved aeration this morning but still with signs of infiltrate in bases c/w aspiration as well as pulmonary edema. Continue intubation/sedation/ventilation today. He is self -diuresing at this point. Will plan on weaning from vent when his settings can be weaned to minimal support settings, hopefully in the next couple of days. Continue TPN, IV abx, lovenox, PPI. 05/03/18: POD#5. Continued improvement. HR normal. SBP in low 100s. Oxygenation is improving, now on PEEP 5. He becomes very agitated when sedation is weaned and he desats and becomes very tachypneic. Will need to continue sedation holidays and let him work on the vent. CXR still with signs of pulmonary edema but he's auto diuresing. Replace K today. Continue intubation/ventilation today and will start checking daily weaning parameters. Continue TPN, IV abx, lovenox, PPI. 05/04/18: POD#6. Stable but still having fevers and WBC has leveled off at 14K on primaxin and vancomycin. If fevers and WBC don't improve by tomorrow morning then will get a CT abd/pelvis tomorrow. CXR pending. Low K, replace. Cotinue daily sedation holidays and vent weaning measures but won't plan to extubate until at least tomorrow after we know if fevers/WBC improve or CT reveals no need for reoperation (i.e. no anastomotic leak or abscess). Could also consider adding antifungal coverage to abx. Cotinue primaxin/vanco, TPN, lovenox, PPI. 05/05/18: POD#7. Continued fevers and leukocytosis. ICU staff are noticing "a lot" of oral secretions. Will get a CT chest/abdomen/pelvis and sinuses today. Continue IV abx, TPN, lovenox, PPI. If CT scans unremarkable (i.e. no anastomotic leak of fluid collections/abscess) then will work on weaning from vent with hope for extubation in next day or two, if possible. 05/06/18: POD#8. CT yesterday reveals sinusitis and some fluid collections adjacent and in his abdominal wall, likely seromas related to surgery and his incisional hernia repairs. No obvious signs of anastomotic leak but motion artifact obscures the images to some degree. Improving from respiratory standpoint but still having fevers. WBC slowly coming down but was 11K yesterday and this morning. Will follow this. Continue bowel rest, TPN, IV abx. I would like to see fevers and WBC normalize before extubating him. Continue lovenox, PPI, etc. 05/07/18: POD#9. Seems to be doing a little better. WBC is down this morning. Still having fevers. Will see if they improve over the next day. May try to wean from vent with hope for extubation tomorrow. Continue bowel rest, TPN, IV abx, lovenox, PPI, etc. Replace K. 05/08/18: POD#10. Continued improvement but continued fevers. WBC still normal , bands decreasing. Will wean vent/sedation, hope to extubate today. Will have Dr. Husain, ENT consult regarding severe sinusitis on CT. Continue TPN, IV abx, lovenox, PPI, etc. (2) Fever Status: Acute (3) Aspiration pneumonia due to vomit Status: Acute Central Venous Access Medical Necessity for Access: Hemodynamic Monitoring, IV Access, Medication Administration Condition Stable. Time Spent: < 30 min Exam Sepsis Risk: Sepsis Risk Problem Qualifiers (1) Fever: Fever type: post-procedural Qualified Codes: R50.82 - Postprocedural fever (2) Aspiration pneumonia due to vomit: Laterality: bilateral BEATRIZ FERNANDEZ MD May 08, 2018 07:34
[2018-05-08] MEDS: PANTOPRAZOLE SOD 40 MG IV VIAL IVP SCH (08:36)
--- NOTE | 2018-05-08 08:48 | Medical Nutrition Therapy ---
Nutrition Anthropometrics Height (Inches): 70.00 Height (Calculated Centimeters: 177.382972 Weight (Pounds): 213 Weight (Calculated Kilograms): 96.615 BMI: 31.4 Abram Nutrition Score: Adequate [place]am Nutrition Risk Score: 12 Dietary Referral Nutrition Risk Factors: Nutrition Risk Comment: Nutritional Diagnosis Nutritional Risk Acuity 1: TPN/PPN, GI Obstruction Past Medical History: Colon CA Nutritional Acuity: 1-High Nutrition Diagnosis: Altered GI Function Nutrition Etiology: Physiological Causes Nutrition Problem/Etiology/Sym: AEB SBO Energy Requirement: 2474 ([address] x 1.2 SF x 1.1 AF) Protein Requirement: 88 (1gm/kg) Fluid Requirement: 2474 (30ml/kg) Diet Type: NPO (Nothing by Mouth), TPN/PPN Nutrition Intervention: Incr diet as tolerated Drug: Diuretics Drug/Nutrition Recommendations: Patient Taking K+ Nutritional Support Current Enteral / Parental: TPN Rate: 75 ml/hr Clinimix 5% AA / 20% Dex plus 250 ml lipids Current Duration: 24 Current Calories: 1584 Current Protein: 90 Current Lipids Calories: 997 (997 kcal from Propofol) Total Current Calories: 2581 Nutrition Monitoring & Eval RD Patient Assessment Time: [address] Assessment Type: RD Re-Assessment Patient Nutrition Acuity: 1-High Follow Up Date: May 10, 2018 Nutritional Comment: 04/26 Pt currently NPo for SBO. Pt recieving NG suction. No flatus or bowel sounds at this time. Dr reports pt is dehydrated. Pt cont elevated H/H, BUN, creatinine. Alb WNR at 4.6. Recommend nutrition support if NPO > 3 days. 04/28 Pt has agreed to surgery per note. Bowel function indicates hypoactive, no flatus and very distended - SOB not resolved. Pt to start TPN this afternoon following procedure. Current rate Clinimex 5/15% 75ml/hr which will provide 91% kcal and 98% protein needs. Recommend changing to Clinimex 5/15% 83ml/hr to provide 100% kcal and 113% protein needs. Labs indicate very low K 2.9, Glucose 160 down from 237. BUN 34. Will monitor TPN and labs for any changes. - RB 04/29 POD#1 for small bowel resection, repair of abdominal wall hernias, adhesion lysis. Low H/H, Alb 2.2, Low Ca+, Glu 146k, High Na+. Continues with TPN Clinimix E 5-20% at 75mL/hr with 250 mL/day of Intralipid 20%. Pt also receiving propofol for sedation which contributes 1.1 kcals/mL as fat. Monitor clinical progression, labs, etc. -DRT 05/01 POD #3. Vent. with Propofol at 14.6 ml/hr providing 385 additional kcal. Continues TPN Clinimix E 5% AA / 20% Dex at 75 ml/hr. With vent recalculated kcal needs to 2474. TPN at current rate provides 100% kcal needs and 102% protein needs including Propofol. Pt now on diuretics to improve pulmonary status. K+ low 3.0, BG ranging from 104-165 since yesterday, Alb. 2.3 trending down since admit date on 04/25. Low Ca but trending up. Pt. on electrolyte replacement. Will monitor TPN and labs as pt status changes. - RB 05/02 Pt cont on vent and TPN Clinimix E 5-20% at 75 ml/hr plus 250ml lipids and Propofol at 14.6 ml/hr. Meeting 100% kcal needs and 102% protein needs. Lipid emulsion plus Propofol provide 885 kcal or 36% kcals from fat which is within acceptable range. No longer on diuretic. BG still elevated due to TPN. Will cont to monitor changes in propofol, TPN, labs, etc. - RB 05/04 Pt now on 34.9 ml/hr Propofol plus Clinimix E 5-20 at 75 ml/hr and 250 ml lipid. Current rate of Propofol provides 921 additional kcal from fat plus 500 kcal lipid emulsion and 1584 kcal from TPN. This totals 3005 kcal - pt being overfed by 531 kcal or 121%. Pt wt also increasing but on diuretics. Recommend same rate of Clinimix E 5-20 at 75 ml/hr but no extra lipid because Propofol provides 31% kcal from fat. Without lipid, would provide 2505 total kcal, 101% kcal needs and 102% protein needs. Dr. weeks states potential extubation tomorrow for CT scan if elevated WBC and fever not resolved. Will cont. to monitor TPN and Propofol while sedated on vent. - RB 05/08 Pt cont onTPN. Per Dr salazar,goal is to extubate tomorrow. Lipid d/dedra. Pt cont TPN at 75ml/hr plus propofol meeting 104% est kcal and 102% est protein needs. Alb 2.4. Wt up 19#. BG stable 114- 149 past week. Will cont to monitor. SIM DIEGO May 08, 2018 08:48
[2018-05-08] MEDS: ORAL SUCTION/CHLORHX/SWAB KIT MT SCH (09:00)
[2018-05-08] MEDS: ENOXAPARIN 40 MG/0.4ML SYR SC SCH (09:29)
[2018-05-08] MEDS: FUROSEMIDE 20 MG/2 ML VIAL IVP SCH (09:30)
[2018-05-08] MEDS: ACETAMINOPHEN(*)1000 MG/100 ML 100 ML IVPB PRN ×3 (09:48→23:28)
[2018-05-08] MEDS: [UNRECOGNIZED DRUG - OTHER] IV SCH ×2 (09:51→23:22)
--- NOTE | 2018-05-08 10:20 | Hospitalist Progress Note ---
Subjective Progress Notes Subjective This patient was admitted for bowel obstruction. He has remained in the ICU since the time of his surgery. Patient Complains of: Cardiovascular: No: Chest Pain Respiratory: No: Shortness of Breath Physical Exam Vital Signs Date Time Temp Pulse Resp B/P (MAP) Pulse Ox O2 Delivery O2 Flow Rate FiO2 05/08/18 09:24 94 High-Flow Nasal Cannula 6.0 05/08/18 09:11 25 05/08/18 08:59 40.0 05/08/18 06:45 100.4 84 99/60 (73) Neuro: No Gross deficits Eyes: PERRLA Cardiovascular: Regular Rate and Rhythm, No JVD Respiratory: Other (Bilateral breath sounds present.) Extremities: No Edema Integumentary: No Cyanosis Result Diagram: 05/08/18 0516 05/08/18 0515 Item Value Date Time Blood Culture - Preliminary Resulted 05/04/18 0745 Blood Peripheral Draw NO GROWTH AFTER 4 DAYS, REINCUBATED Blood Culture - Preliminary Resulted 05/04/18 0700 Blood Line Draw NO GROWTH AFTER 4 DAYS, REINCUBATED Blood Fungal Culture - Final Resulted 05/04/18 0655 Blood Peripheral Draw Urine Culture - Final Complete 05/04/18 0000 Rodriguez Catheter Urine NO GROWTH AFTER 2 DAYS Imaging Chest x-ray reviewed. Monitor Interpretation: Normal Sinus Rhythm Assessment and Plan Problems: (1) Fever Status: Acute Assessment & Plan: He has had a persistent fever since 04/29. He did initially have an elevated WBC, but this has now improved. Originally his fever was attributed to aspiration pneumonia, but his x-ray has now cleared and he has completed 2 courses of appropriate antibiotics with persistent fever. A sinus CT scan showed findings consistent with sinusitis and mastoiditis, but these could also be explained by his lines and tubing. Also, the antibiotics should have covered these. He is currently on Primaxin, vancomycin, and fluconazole. Previously he had been on Unasyn. All of his cultures have been negative to this point. He does have a fluid collection in the abdomen, which is believed to be a post operative reaction. We have stopped the fluconazole and vancomycin today. He will be evaluated by ENT regarding the sinusitis and mastoiditis. We will plan to ramey culture him at the next fever spike. (2) Aspiration pneumonia Assessment & Plan: He did have an aspiration event prior to surgery. Bronchoscopy was performed immediately after to wash out the airways. He developed bilateral infiltrates on his chest x-ray. He is on antibiotics as above. (3) Acute respiratory failure Assessment & Plan: He was intubated from 04/28 to today. We did extubate him this morning and he is currently doing well. (4) Hyperglycemia Assessment & Plan: This is likely secondary to TPN. Insulin is included in his TPN and he is also on sliding scale level #2. (5) SBO (small bowel obstruction) Status: Acute Assessment & Plan: He did undergo exploratory laparotomy with adhesion lysis, liver biopsy and abdominal hernia repair. (6) Depression Status: Chronic Assessment & Plan: He is on chronic treatment with Effexor XR, which is currently on hold. 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 (8) Colon cancer Status: Resolved Assessment & Plan: Resolved. He did have liver nodules noted during the exploratory lap and a liver biopsy was done - negative for malignancy. (9) Hypervolemia Assessment & Plan: He has had approximately 10kg weight gain since admission. He is now on scheduled Lasix and his weights and chest x-ray are improving. Central Venous Access Medical Necessity for Access: Hemodynamic Monitoring, IV Access, Medication Administration Exam Sepsis Risk: Sepsis Risk Problem Qualifiers (1) Fever: Fever type: post-procedural Qualified Codes: R50.82 - Postprocedural fever BEATRIZ PEREZ DO May 08, 2018 10:20
[2018-05-08] MEDS: HYDROmorphone HCL 2 MG/ML SDV IVP PRN ×2 (12:01→21:34)
[2018-05-08] MEDS: INSULIN HUM LISPRO 100 UN/ML 3 ML VIAL SUBQ PRN (23:31)
[2018-05-09] VITALS (46 sets, daily range): BP systolic 103–148; BP diastolic 60–95
[2018-05-09] MEDS: IMIPENEM/CILASTA(*) 500MG VIAL 500 MG in NS(*) 0.9% 100 ML BAG 100 ML IVPB SCH ×4 (03:35→20:55)
--- NOTE | 2018-05-09 04:17 | CONSULTATION ---
EVENT DATE: May 08, 2018 ATTENDING PHYSICIAN River Calderón MD CONSULTING PHYSICIAN Cam Husain MD REASON FOR CONSULTATION Sinusitis. HISTORY OF PRESENT ILLNESS This is a 47-year-old man who initially presented to the emergency department on April 25, 2018 with a concern of five days of abdominal distention, nausea and vomiting. The patient had a history of colon cancer. He is status post colon resection six years [address]. A [address] of the abdomen in the emergency department was consistent with small bowel obstruction. The patient initially was managed with an NG tube. He was taken to the operating room on April 28, 2018 for an exploratory laparotomy. His postoperative course has been complicated by an intubation. He had a nasogastric tube placed in the right nasal cavity. The patient was just extubated this morning. He has been running intermittent fever. He is being treated with broad spectrum antibiotics and antifungals, including imipenem, vancomycin and fluconazole. A CT of the sinuses performed on May 05, 2018 demonstrates a right nasogastric tube and absent left frontal sinus, opacification of the right ethmoid and maxillary sinuses and bilateral sphenoid sinuses and a small air fluid level in the left maxillary sinus. PAST MEDICAL HISTORY As above, depression. REVIEW OF SYSTEMS: As above. ALLERGIES No known drug allergies. FAMILY HISTORY Noncontributory. SOCIAL HISTORY The patient is a tobacco user. He uses alcohol. PHYSICAL EXAMINATION VITAL SIGNS: Temperature 101.6 Fahrenheit. Pulse 97. Respiratory rate 25. Pulse ox 96% on 6L of oxygen. GENERAL: Ill-appearing, no apparent distress. HEENT: Head and face normocephalic, atraumatic. No gross lesions or scars. No parasinus tenderness. Nose: External nose unremarkable. Midline septum. Moist mucous membranes. Gross purulence, right nasal cavity. Ears: External ears unremarkable. Oral cavity and pharynx: Adequate dentition, moist mucous membranes. NECK: Soft, supple, midline trachea. No palpable lymphadenopathy. ASSESSMENT Acute ethmoid, maxillary and sphenoid sinusitis. PLAN The patient is on adequate antibiotic coverage for an acute sinuitis for typical organisms. I recommended that the NG tube be removed from the right side. Should this need to be replaced, I would recommend using the contralateral side. I would hesitate to recommend steroids in this circumstance , given his recent bowel surgery, but will defer to general surgery. Please do not hesitate to call me with any further questions or concerns. MTDD
[2018-05-09 05:29] LABS: PLATELET COUNT, AUTOMATED 442 K/uL (150-450)
--- NOTE | 2018-05-09 06:40 | General Surgery Progress Note ---
Subjective Progress Notes Subjective "I want to go home." Denies pain. No flatus. Physical Exam Vital Signs Date Time Temp Pulse Resp B/P (MAP) Pulse Ox O2 Delivery O2 Flow Rate FiO2 05/09/18 06:30 100.6 94 33 117/75 (89) 91 High-Flow Nasal Cannula 5.0 05/08/18 09:15 40.0 General Appearance: Alert, Awake, No Acute Distress, Afebrile GI: Soft and Non-Tender (Incision is healing well without erythema or drainage. ) Extremities: Warm, Perfused Result Diagram: 05/09/1851405/09/18514 Monitor Interpretation: Normal Sinus Rhythm Assessment and Plan Problems: (1) SBO (small bowel obstruction) Status: Acute Assessment & Plan: 04/25/18: This is his 1st small bowel obstruction. The ventral/incisional hernia is reducible so if this was the cause of the obstruction, he should improve fairly rapidly. Adhesions are also a strong possibility given his history of colon resection for colon cancer. We will start managing this conservatively with NG tube decompression and bowel rest as well as IV fluids. He seems to be very dehydrated based on his labs and so we' ll resuscitate him with crystalloid. If he fails to improve after 48-72 hours then he may need surgical exploration. I have explained this plan to him in great detail and he seems to understand and seems agreeable with this plan. We' ll start Lovenox for DVT prophylaxis and Protonix for GI prophylaxis. We will use intermittent Dilaudid as well as when necessary IV Tylenol and Toradol for pain control. 04/26/18: Doing better clinically. No flatus or BM yet. KUB unchanged. Continue resuscitation, bowel rest and decompression, IV fluids. Pain control, pulmonary hygiene, lovenox, PPI. 04/27/18: Seems to be improving. KUB with improving but still dilated loops of small bowel. Will get a water soluble SBFT today. NG tube removed last night at patient request after warning him that it may have to be replaced if his obstruction worsens. Continue bowel rest, IV fluids, etc. 04/28/18: No improvement, worse since SBFT. Contrast has not passed obstruction. Will proceed with ex-lap today to look for cause of obstruction and treat it. Will also need to address the hernia(s) and how I do this depends on whether bowel resection is necessary. I have explained surgery, alternatives, risks, recovery to the patient and his questions have been answered. He would like to proceed with surgery. Will place central line as well so we can start TPN postop. 04/29/18: POD#1 s/p bronchoscopy, ex-lap, small bowel resection, primary repair of several abdominal wall hernias, liver biopsy, central line placement. Stable overnight but hyperdynamic with mild tachycardia and mild fevers. Likely aspirated bile after induction. Will keep intubated today and let him physiologically recover. Will continue fluid recuscitation today. Continue IV abx, unasyn and vanco. Continue TPN. PPI and lovenox for prophylaxis. Will get PT/OT to see him once extubated. 04/30/18: POD#2. Tachycardic and hypoxic. Physiologic response to surgery and likely bile aspiration and now with likely chemical pneumonitis. Will increase PEEP to 10. CVP up to 15, could consider diuresis especially given fluffy appearance of lungs on CXR this morning. May also consider steroids for pneumonitis but he has an anastomosis and healing of this could be adversely affected by steroids. ABG is improving and base deficit is now normal. Will continue intubation/mech. ventilation until his inflammatory response improves and then, hopefully tomorrow, on POD#3 when he should start mobilizing 3rd spaced fluids, we can help him diurese and dry his lungs out a little, as much as his cardiovascular system will tolerate. Continue TPN, lovenox, PPI, IV abx. 05/01/18: POD#3. Improved HR. Pressures in high 90s systolic but now on propofol gtt for improved sedation/comfort. SaO2 in low 90s on 95%fiO2 and PEEP 10. CVP 8 this morning. Discussed with Hospitalist service. Will gently diurese him today and see how his BP tolerates this. Hopefully with help dry his lungs out and improve oxygenation/ventilation. Fluid status much improved, should start mobilizing 3rd space fluid today, already with increased UOP. Continue intubation/mech ventilation until pulmonary status improves. Continue TPN, lovenox, PPI, IV abx. Hospitalist changing abx coverage from unasyn to primaxin/vanco. Continue ICU care. 05/02/18: POD#4. Improving. HR normal. SBP in 90s on proprofol gtt. Oxygenation is improving, now on PEEP 12 and FiO2. CXR with improved aeration this morning but still with signs of infiltrate in bases c/w aspiration as well as pulmonary edema. Continue intubation/sedation/ventilation today. He is self -diuresing at this point. Will plan on weaning from vent when his settings can be weaned to minimal support settings, hopefully in the next couple of days. Continue TPN, IV abx, lovenox, PPI. 05/03/18: POD#5. Continued improvement. HR normal. SBP in low 100s. Oxygenation is improving, now on PEEP 5. He becomes very agitated when sedation is weaned and he desats and becomes very tachypneic. Will need to continue sedation holidays and let him work on the vent. CXR still with signs of pulmonary edema but he's auto diuresing. Replace K today. Continue intubation/ventilation today and will start checking daily weaning parameters. Continue TPN, IV abx, lovenox, PPI. 05/04/18: POD#6. Stable but still having fevers and WBC has leveled off at 14K on primaxin and vancomycin. If fevers and WBC don't improve by tomorrow morning then will get a CT abd/pelvis tomorrow. CXR pending. Low K, replace. Cotinue daily sedation holidays and vent weaning measures but won't plan to extubate until at least tomorrow after we know if fevers/WBC improve or CT reveals no need for reoperation (i.e. no anastomotic leak or abscess). Could also consider adding antifungal coverage to abx. Cotinue primaxin/vanco, TPN, lovenox, PPI. 05/05/18: POD#7. Continued fevers and leukocytosis. ICU staff are noticing "a lot" of oral secretions. Will get a CT chest/abdomen/pelvis and sinuses today. Continue IV abx, TPN, lovenox, PPI. If CT scans unremarkable (i.e. no anastomotic leak of fluid collections/abscess) then will work on weaning from vent with hope for extubation in next day or two, if possible. 05/06/18: POD#8. CT yesterday reveals sinusitis and some fluid collections adjacent and in his abdominal wall, likely seromas related to surgery and his incisional hernia repairs. No obvious signs of anastomotic leak but motion artifact obscures the images to some degree. Improving from respiratory standpoint but still having fevers. WBC slowly coming down but was 11K yesterday and this morning. Will follow this. Continue bowel rest, TPN, IV abx. I would like to see fevers and WBC normalize before extubating him. Continue lovenox, PPI, etc. 05/07/18: POD#9. Seems to be doing a little better. WBC is down this morning. Still having fevers. Will see if they improve over the next day. May try to wean from vent with hope for extubation tomorrow. Continue bowel rest, TPN, IV abx, lovenox, PPI, etc. Replace K. 05/08/18: POD#10. Continued improvement but continued fevers. WBC still normal , bands decreasing. Will wean vent/sedation, hope to extubate today. Will have Dr. Husain, ENT consult regarding severe sinusitis on CT. Continue TPN, IV abx, lovenox, PPI, etc. 05/09/18: POD#11. Extubated yesterday. WBC up a little bit with continued fevers but he denies any abdominal pain. Abdominal exam indeterminate since I repaired several ventral hernias (suture repair only) but his abdomen is firm where these have been repaired but he denies TTP. Dr. Husain only recommended afrin nasal spray for sinusitis and NG removed so this should help drainage. Continue bowel rest and TPN until bowel function returns. Hospitalist has stopped vancomycin and fluconazole and he remains only on primaxin at this point , will need to follow this. New blood and urine cultures are pending. Will get PT/OT to see patient and start working with him today. Lupis out of incision later this week. Continue Lovenox and PPI. (2) Fever Status: Acute (3) Aspiration pneumonia due to vomit Status: Acute Central Venous Access Medical Necessity for Access: Hemodynamic Monitoring, IV Access, Medication Administration Condition Stable. Time Spent: < 30 min Exam Sepsis Risk: Sepsis Risk Problem Qualifiers (1) Fever: Fever type: post-procedural Qualified Codes: R50.82 - Postprocedural fever (2) Aspiration pneumonia due to vomit: Laterality: bilateral BEATRIZ FERNANDEZ MD May 09, 2018 06:40
--- NOTE | 2018-05-09 06:58 | RADIOLOGY IMAGING REPORT ---
[place] [facility] [place] Cosmo Sarabia : 1970 MR: [id number] V: [id number] EXAM DATE: ORDERING PHYSICIAN: BEATRIZ FERNANDZE TECHNOLOGIST: Location: [facility] Patient: Cosmo Sarabia : 1970 Visit/Account:[id number] Date of Sevice: 05/09/2018 CHEST SINGLE AP Indication: Aspiration pneumonia.. Comparison: None available Findings: Interval extubation and removal of nasogastric tube. Right internal jugular central line is unchanged . Heart size within normal limits. Subtle heterogeneous consolidation within the left midlung, new since prior exam. No pneumothorax or pleural effusion. IMPRESSION: 1. Subtle heterogeneous consolidation within the left midlung, new since prior exam. Cannot exclude p neumonia. Report Dictated By: Bernardo Terrazas MD at 05/09/2018 6:53 AM Report E-Signed By: Bernardo Terrazas MD at 05/09/2018 6:54 AM WSN:[id number]
[2018-05-09] MEDS: PANTOPRAZOLE SOD 40 MG IV VIAL IVP SCH (09:15)
[2018-05-09] MEDS: FUROSEMIDE 20 MG/2 ML VIAL IVP SCH (09:16)
[2018-05-09] MEDS: ENOXAPARIN 40 MG/0.4ML SYR SC SCH (09:16)
--- NOTE | 2018-05-09 11:13 | Hospitalist Progress Note ---
Subjective Progress Notes Subjective Admitted for SBO, failed conservative therapy. Patient respiratory status stable this am after extubation yesterday. Continues to have significant Cough and febrile. Patient Complains of: Neurological: No: Syncope, Confusion, Weakness, Dizziness Cardiovascular: No: Chest Pain, Palpitations, Orthostatic Hypotension Respiratory: Cough Gastrointestinal: No Nausea, No Vomiting, No Bowel Movement Genitourinary: No Dysuria (+ Rodriguez) Musculoskeletal: No: Pain, Sprain, Strain Physical Exam Vital Signs Date Time Temp Pulse Resp B/P (MAP) Pulse Ox O2 Delivery O2 Flow Rate FiO2 05/09/18 10:30 100.0 90 124/75 (91) 95 High-Flow Nasal Cannula 5.0 05/09/18 09:30 34 05/08/18 09:15 40.0 Intake and Output 05/10/18 07:00 Intake Total 121 ml Output Total 820 ml Balance -699 ml IV Total 121 ml Output Urine Total 820 ml General Appearance: Alert, Awake Neuro: No Gross deficits Eyes: PERRLA ENT: Normal Neck: No Masses Cardiovascular: Normal Rhythm & Peripheral Pulses Respiratory: No Respiratory Distress (coarse breath sounds R>L) Chest: No Masses GI: Soft and Non-Tender : Normal (+ Foely) Lymph: No Adenopathy Musculoskeletal: No Weakness/Pain Extremities: Soft and Non Tender, Warm, Pulses Integumentary: Skin Intact without Lesion / Mass Psych: Alert & Oriented X3 Result Diagram: 05/09/18 0515 05/09/18 0515 Monitor Interpretation: Normal Sinus Rhythm Assessment and Plan Problems: (1) Fever Status: Acute Assessment & Plan: He has had a persistent fever since 04/29. He did initially have an elevated WBC, but this has now improved. Originally his fever was attributed to aspiration pneumonia, but his x-ray has now cleared and he has completed 2 courses of appropriate antibiotics with persistent fever. A sinus CT scan showed findings consistent with sinusitis and mastoiditis, but these could also be explained by his lines and tubing. Also, the antibiotics should have covered these. He is currently on Primaxin. Previously he had been on Unasyn, vancomycin, fluconazole. All of his cultures have been negative to this point. He does have a fluid collection in the abdomen, which is believed to be a post operative reaction. ENT regarding the sinusitis and mastoiditis. BCx pending from 05.08 after fever spiked. Suspect source control issue of unknown origin as should have become afebrile by now if this were PNA or sinusitis were cause of fever. (2) Aspiration pneumonia Assessment & Plan: He did have an aspiration event prior to surgery. Bronchoscopy was performed immediately after to wash out the airways. He developed bilateral infiltrates on his chest x-ray. He is on antibiotics as above. Improved/resolved CXR greatly improved now extubated. (3) Acute respiratory failure Assessment & Plan: He was intubated from 04/28 -05/08. Stable on nasal canula. (4) Hyperglycemia Assessment & Plan: This is likely secondary to TPN. Insulin is included in his TPN and he is also on sliding scale level #2. (5) SBO (small bowel obstruction) Status: Acute Assessment & Plan: He did undergo exploratory laparotomy with adhesion lysis, liver biopsy and abdominal hernia repair. (6) Depression Status: Chronic Assessment & Plan: He is on chronic treatment with Effexor XR, investigating dose with pharmacy may resume once clarified. 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 (8) Colon cancer Status: Resolved Assessment & Plan: Resolved. He did have liver nodules noted during the exploratory lap and a liver biopsy was done - negative for malignancy. (9) Hypervolemia Assessment & Plan: He has had approximately 10kg weight gain since admission. He is now on scheduled Lasix and his weights and chest x-ray are improving. Central Venous Access Medical Necessity for Access: Hemodynamic Monitoring, IV Access, Medication Administration Exam Sepsis Risk: Sepsis Risk Problem Qualifiers (1) Fever: Fever type: post-procedural Qualified Codes: R50.82 - Postprocedural fever SARBJIT HSIEH DO May 09, 2018 11:13
[2018-05-09] MEDS: [UNRECOGNIZED DRUG - OTHER] IV SCH (13:10)
[2018-05-09] MEDS: FAT EMULSION 20% 250 ML BAG 250 ML IVPB SCH (15:40)
[2018-05-09] MEDS ORDERED: VENL150C61 PO (15:51)
[2018-05-09] MEDS: ACETAMINOPHEN(*)1000 MG/100 ML 100 ML IVPB PRN ×2 (16:17→22:33)
[2018-05-10] VITALS (37 sets, daily range): BP systolic 99–141; BP diastolic 61–119
[2018-05-10] MEDS: [UNRECOGNIZED DRUG - OTHER] IV SCH ×2 (02:25→15:37)
[2018-05-10] MEDS: IMIPENEM/CILASTA(*) 500MG VIAL 500 MG in NS(*) 0.9% 100 ML BAG 100 ML IVPB SCH ×4 (02:48→21:19)
[2018-05-10] MEDS: NS(*) 0.9% 500 ML BAG 500 ML IV PRN (04:21)
[2018-05-10 06:02] LABS: PLATELET COUNT, AUTOMATED 511 K/uL (150-450)
[2018-05-10] MEDS: ACETAMINOPHEN(*)1000 MG/100 ML 100 ML IVPB PRN (07:03)
[2018-05-10] MEDS ORDERED: BISACODYL 10 MG SUPP PR ONE (07:10)
--- NOTE | 2018-05-10 07:11 | General Surgery Progress Note ---
Subjective Progress Notes Subjective No complaints this morning. Feeling pretty good. Passing flatus. Physical Exam Vital Signs Date Time Temp Pulse Resp B/P (MAP) Pulse Ox O2 Delivery O2 Flow Rate FiO2 05/10/18 06:30 100.6 98 24 114/76 (89) 93 High-Flow Nasal Cannula 5.0 05/08/18 09:15 40.0 General Appearance: Alert, Awake, No Acute Distress, Afebrile GI: Soft and Non-Tender (Incision looks good without erythema or drainage) Extremities: Warm, Perfused Result Diagram: 05/10/18 0534 05/10/18 0534 Monitor Interpretation: Normal Sinus Rhythm Assessment and Plan Problems: (1) SBO (small bowel obstruction) Status: Acute Assessment & Plan: 04/25/18: This is his 1st small bowel obstruction. The ventral/incisional hernia is reducible so if this was the cause of the obstruction, he should improve fairly rapidly. Adhesions are also a strong possibility given his history of colon resection for colon cancer. We will start managing this conservatively with NG tube decompression and bowel rest as well as IV fluids. He seems to be very dehydrated based on his labs and so we' ll resuscitate him with crystalloid. If he fails to improve after 48-72 hours then he may need surgical exploration. I have explained this plan to him in great detail and he seems to understand and seems agreeable with this plan. We' ll start Lovenox for DVT prophylaxis and Protonix for GI prophylaxis. We will use intermittent Dilaudid as well as when necessary IV Tylenol and Toradol for pain control. 04/26/18: Doing better clinically. No flatus or BM yet. KUB unchanged. Continue resuscitation, bowel rest and decompression, IV fluids. Pain control, pulmonary hygiene, lovenox, PPI. 04/27/18: Seems to be improving. KUB with improving but still dilated loops of small bowel. Will get a water soluble SBFT today. NG tube removed last night at patient request after warning him that it may have to be replaced if his obstruction worsens. Continue bowel rest, IV fluids, etc. 04/28/18: No improvement, worse since SBFT. Contrast has not passed obstruction. Will proceed with ex-lap today to look for cause of obstruction and treat it. Will also need to address the hernia(s) and how I do this depends on whether bowel resection is necessary. I have explained surgery, alternatives, risks, recovery to the patient and his questions have been answered. He would like to proceed with surgery. Will place central line as well so we can start TPN postop. 04/29/18: POD#1 s/p bronchoscopy, ex-lap, small bowel resection, primary repair of several abdominal wall hernias, liver biopsy, central line placement. Stable overnight but hyperdynamic with mild tachycardia and mild fevers. Likely aspirated bile after induction. Will keep intubated today and let him physiologically recover. Will continue fluid recuscitation today. Continue IV abx, unasyn and vanco. Continue TPN. PPI and lovenox for prophylaxis. Will get PT/OT to see him once extubated. 04/30/18: POD#2. Tachycardic and hypoxic. Physiologic response to surgery and likely bile aspiration and now with likely chemical pneumonitis. Will increase PEEP to 10. CVP up to 15, could consider diuresis especially given fluffy appearance of lungs on CXR this morning. May also consider steroids for pneumonitis but he has an anastomosis and healing of this could be adversely affected by steroids. ABG is improving and base deficit is now normal. Will continue intubation/mech. ventilation until his inflammatory response improves and then, hopefully tomorrow, on POD#3 when he should start mobilizing 3rd spaced fluids, we can help him diurese and dry his lungs out a little, as much as his cardiovascular system will tolerate. Continue TPN, lovenox, PPI, IV abx. 05/01/18: POD#3. Improved HR. Pressures in high 90s systolic but now on propofol gtt for improved sedation/comfort. SaO2 in low 90s on 95%fiO2 and PEEP 10. CVP 8 this morning. Discussed with Hospitalist service. Will gently diurese him today and see how his BP tolerates this. Hopefully with help dry his lungs out and improve oxygenation/ventilation. Fluid status much improved, should start mobilizing 3rd space fluid today, already with increased UOP. Continue intubation/mech ventilation until pulmonary status improves. Continue TPN, lovenox, PPI, IV abx. Hospitalist changing abx coverage from unasyn to primaxin/vanco. Continue ICU care. 05/02/18: POD#4. Improving. HR normal. SBP in 90s on proprofol gtt. Oxygenation is improving, now on PEEP 12 and FiO2. CXR with improved aeration this morning but still with signs of infiltrate in bases c/w aspiration as well as pulmonary edema. Continue intubation/sedation/ventilation today. He is self -diuresing at this point. Will plan on weaning from vent when his settings can be weaned to minimal support settings, hopefully in the next couple of days. Continue TPN, IV abx, lovenox, PPI. 05/03/18: POD#5. Continued improvement. HR normal. SBP in low 100s. Oxygenation is improving, now on PEEP 5. He becomes very agitated when sedation is weaned and he desats and becomes very tachypneic. Will need to continue sedation holidays and let him work on the vent. CXR still with signs of pulmonary edema but he's auto diuresing. Replace K today. Continue intubation/ventilation today and will start checking daily weaning parameters. Continue TPN, IV abx, lovenox, PPI. 05/04/18: POD#6. Stable but still having fevers and WBC has leveled off at 14K on primaxin and vancomycin. If fevers and WBC don't improve by tomorrow morning then will get a CT abd/pelvis tomorrow. CXR pending. Low K, replace. Cotinue daily sedation holidays and vent weaning measures but won't plan to extubate until at least tomorrow after we know if fevers/WBC improve or CT reveals no need for reoperation (i.e. no anastomotic leak or abscess). Could also consider adding antifungal coverage to abx. Cotinue primaxin/vanco, TPN, lovenox, PPI. 05/05/18: POD#7. Continued fevers and leukocytosis. ICU staff are noticing "a lot" of oral secretions. Will get a CT chest/abdomen/pelvis and sinuses today. Continue IV abx, TPN, lovenox, PPI. If CT scans unremarkable (i.e. no anastomotic leak of fluid collections/abscess) then will work on weaning from vent with hope for extubation in next day or two, if possible. 05/06/18: POD#8. CT yesterday reveals sinusitis and some fluid collections adjacent and in his abdominal wall, likely seromas related to surgery and his incisional hernia repairs. No obvious signs of anastomotic leak but motion artifact obscures the images to some degree. Improving from respiratory standpoint but still having fevers. WBC slowly coming down but was 11K yesterday and this morning. Will follow this. Continue bowel rest, TPN, IV abx. I would like to see fevers and WBC normalize before extubating him. Continue lovenox, PPI, etc. 05/07/18: POD#9. Seems to be doing a little better. WBC is down this morning. Still having fevers. Will see if they improve over the next day. May try to wean from vent with hope for extubation tomorrow. Continue bowel rest, TPN, IV abx, lovenox, PPI, etc. Replace K. 05/08/18: POD#10. Continued improvement but continued fevers. WBC still normal , bands decreasing. Will wean vent/sedation, hope to extubate today. Will have Dr. Husain, ENT consult regarding severe sinusitis on CT. Continue TPN, IV abx, lovenox, PPI, etc. 05/09/18: POD#11. Extubated yesterday. WBC up a little bit with continued fevers but he denies any abdominal pain. Abdominal exam indeterminate since I repaired several ventral hernias (suture repair only) but his abdomen is firm where these have been repaired but he denies TTP. Dr. Husain only recommended afrin nasal spray for sinusitis and NG removed so this should help drainage. Continue bowel rest and TPN until bowel function returns. Hospitalist has stopped vancomycin and fluconazole and he remains only on primaxin at this point , will need to follow this. New blood and urine cultures are pending. Will get PT/OT to see patient and start working with him today. [place] out of incision later this week. Continue Lovenox and PPI. 05/10/18: POD#12. Doing much better today. WBC back down to normal. Still having low grade fevers overnight, just over 100F. Abdomen is soft and nontender, very benign this morning. Passing flatus so will start clear diet. D/C juárez today. Continue primaxin until afebrile for 24 hours and normal WBC. Continue TPN until tolerating diet. Continue PT/OT, ambulation, IS, pulmonary hygiene, lovenox, PPI. If he does OK then he could transfer to [facility]/ Surg later today or tomorrow. (2) Fever Status: Acute (3) Aspiration pneumonia due to vomit Status: Acute Central Venous Access Medical Necessity for Access: Hemodynamic Monitoring, IV Access, Medication Administration Condition Stable. Time Spent: < 30 min Exam Sepsis Risk: Sepsis Risk Problem Qualifiers (1) Fever: Fever type: post-procedural Qualified Codes: R50.82 - Postprocedural fever (2) Aspiration pneumonia due to vomit: Laterality: bilateral BEATRIZ FERNANDEZ MD May 10, 2018 07:11
--- NOTE | 2018-05-10 07:11 | RADIOLOGY IMAGING REPORT ---
FACILITY: [facility] PATIENT NAME: Cosmo Sarabia : 1970 MR: [id number] V: [id number] EXAM DATE: ORDERING PHYSICIAN: BEATRIZ FERNANDEZ TECHNOLOGIST: Location: Patient: Cosmo Sarabia : 1970 Visit/Account:[id number] Date of Sevice: 05/10/2018 CHEST SINGLE AP Indication: Aspiration pneumonia. Comparison: May 09, 2018 Findings: Right internal jugular central line is stable. Heart size within normal limits. There is no focal infiltrate or lobar consolidation. Previously identified subtle consolidation wi thin the left midlung is not definitively present on today's exam. Bibasilar atelectasis. No pneumothorax or pleural effusion. IMPRESSION: 1. No acute cardiopulmonary process. Previously identified subtle consolidation within the left midl irene is not definitively identified on today's exam. Report Dictated By: Bernardo Terrazas MD at 05/10/2018 7:07 AM Report E-Signed By: Bernardo Terrazas MD at 05/10/2018 7:08 AM WSN:[id number]
--- NOTE | 2018-05-10 07:12 | RADIOLOGY IMAGING REPORT ---
FACILITY: [facility] PATIENT NAME: Cosmo Sarabia : 1970 MR: [id number] V: [id number] EXAM DATE: ORDERING PHYSICIAN: BEATRIZ FERNANDEZ TECHNOLOGIST: Location: [facility] Patient: Cosmo Sarabia : 1970 Visit/Account:[id number] Date of Sevice: 05/10/2018 Single view of the abdomen Indication: Ileus Comparison: None available Findings: Gas-filled loops of small and large bowel. No definitive dilated loops of small bowel identified. There are no pathologic calcifications identified. Surgical lalo project over the right hemiabdomen. Surgical clips project over the left hemiabdomen . IMPRESSION: Gas filled loops of bowel, most compatible with ileus. Report Dictated By: Bernardo Terrazas MD at 05/10/2018 7:08 AM Report E-Signed By: Bernardo Terrazas MD at 05/10/2018 7:09 AM WSN:[id number]
[2018-05-10] MEDS: VENLAFAXINE XR 75 MG CAPCR PO SCH (09:12)
[2018-05-10] MEDS: PANTOPRAZOLE SOD 40 MG IV VIAL IVP SCH (09:13)
[2018-05-10] MEDS: FUROSEMIDE 20 MG/2 ML VIAL IVP SCH (09:13)
[2018-05-10] MEDS: ENOXAPARIN 40 MG/0.4ML SYR SC SCH (09:13)
--- NOTE | 2018-05-10 10:15 | Hospitalist Progress Note ---
Subjective Progress Notes Subjective Some low grade temps. Overall, he reports feeling "good". Physical Exam Vital Signs Date Time Temp Pulse Resp B/P (MAP) Pulse Ox O2 Delivery O2 Flow Rate FiO2 05/10/18 09:30 95 26 125/92 (103) 92 High-Flow Nasal Cannula 5.0 05/10/18 09:00 99.6 05/08/18 09:15 40.0 Intake and Output 05/11/18 07:00 Intake Total 100 ml Output Total 600 ml Balance -500 ml IV Total 100 ml Output Urine Total 600 ml General Appearance: Alert, Awake Cardiovascular: Regular Rate and Rhythm Respiratory: Other (fairly clear with rare scattered rhonchi) Extremities: Warm, Perfused Psych: Alert & Oriented X3 Result Diagram: 05/10/18 0534 05/10/18 05 Monitor Interpretation: Normal Sinus Rhythm Assessment and Plan Problems: (1) Fever Status: Acute Assessment & Plan: He has had a persistent fever since 04/29. He did initially have an elevated WBC, but this has now improved. Originally his fever was attributed to aspiration pneumonia, but his x-ray has now cleared and he has completed 2 courses of appropriate antibiotics with persistent fever. A sinus CT scan showed findings consistent with sinusitis and mastoiditis, but these could also be explained by his lines and tubing. Also, the antibiotics should cover these. He is currently on Primaxin. Previously he had been on Unasyn, vancomycin, fluconazole. All of his cultures have been negative to this point. He does have a fluid collection in the abdomen, which is believed to be a post operative reaction. Blood cultures negative from 05/08. He did grow a GNR in his sputum from 05/08. Clinically, he is doing well and temperature trend is lower. (2) Aspiration pneumonia Assessment & Plan: He did have an aspiration event prior to surgery. Bronchoscopy was performed immediately after to wash out the airways. He developed bilateral infiltrates on his chest x-ray. He is on antibiotic as above. Improved/resolved CXR greatly improved now extubated. (3) Acute respiratory failure Assessment & Plan: He was intubated from 04/28-05/08. Stable on nasal canula. (4) Hyperglycemia Assessment & Plan: This is likely secondary to TPN. Insulin is included in his TPN and he is also on sliding scale level #2. (5) SBO (small bowel obstruction) Status: Acute Assessment & Plan: He did undergo exploratory laparotomy with adhesion lysis, liver biopsy and abdominal hernia repair. (6) Depression Status: Chronic Assessment & Plan: He is on chronic treatment with Effexor XR, investigating dose with pharmacy may resume once clarified. 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 (8) Colon cancer Status: Resolved Assessment & Plan: Resolved. He did have liver nodules noted during the exploratory lap and a liver biopsy was done - negative for malignancy. (9) Hypervolemia Assessment & Plan: He has had approximately 10kg weight gain since admission. He is now on scheduled Lasix and his weights (and chest x-ray) are improving. Central Venous Access Medical Necessity for Access: Hemodynamic Monitoring, IV Access, Medication Administration Exam Sepsis Risk: Sepsis Risk Problem Qualifiers (1) Fever: Fever type: post-procedural Qualified Codes: R50.82 - Postprocedural fever MARA SALVADOR MD May 10, 2018 10:15
--- NOTE | 2018-05-10 15:47 | Medical Nutrition Therapy ---
Nutrition Anthropometrics Height (Inches): 70.00 Height (Calculated Centimeters: 177.715751 Weight (Pounds): 207 Weight (Calculated Kilograms): 93.894 BMI: 31.4 Abram Nutrition Score: Probably Inadequate Abram Nutrition Risk Score: 13 Dietary Referral Nutrition Risk Factors: Nutrition Risk Comment: Nutritional Diagnosis Nutritional Risk Acuity 1: TPN/PPN, GI Obstruction Past Medical History: Colon CA Nutritional Acuity: 1-High Nutrition Diagnosis: Altered GI Function Nutrition Etiology: Physiological Causes Nutrition Problem/Etiology/Sym: AEB SBO Energy Requirement: 2474 ([address] x 1.2 SF x 1.1 AF) Protein Requirement: 88 (1gm/kg) Fluid Requirement: 2474 (30ml/kg) Diet Type: NPO (Nothing by Mouth), TPN/PPN Nutrition Intervention: Incr diet as tolerated Drug: Diuretics Drug/Nutrition Recommendations: Patient Taking K+ Nutritional Support Current Enteral / Parental: TPN Rate: 75 ml/hr Clinimix 5% AA / 20% Dex plus 250 ml lipids Current Duration: 24 Current Calories: 1584 Current Protein: 90 Current Lipids Calories: 500 (from lipids) Total Current Calories: 2084 Nutrition Monitoring & Eval RD Patient Assessment Time: [address] Assessment Type: RD Re-Assessment Patient Nutrition Acuity: 1-High Follow Up Date: May 12, 2018 Nutritional Comment: 04/26 Pt currently NPO for SBO. Pt recieving NG suction. No flatus or bowel sounds at this time. Dr reports pt is dehydrated. Pt cont elevated H/H, BUN, creatinine. Alb WNR at 4.6. Recommend nutrition support if NPO > 3 days. BK 04/28 Pt has agreed to surgery per note. Bowel function indicates hypoactive, no flatus and very distended - SOB not resolved. Pt to start TPN this afternoon following procedure. Current rate Clinimex 5/15% 75ml/hr which will provide 91% kcal and 98% protein needs. Recommend changing to Clinimex 5/15% 83ml/hr to provide 100% kcal and 113% protein needs. Labs indicate very low K 2.9, Glucose 160 down from 237. BUN 34. Will monitor TPN and labs for any changes. - RB 04/29 POD#1 for small bowel resection, repair of abdominal wall hernias, adhesion lysis. Low H/H, Alb 2.2, Low Ca+, Glu 146k, High Na+. Continues with TPN Clinimix E 5-20% at 75mL/hr with 250 mL/day of Intralipid 20%. Pt also receiving propofol for sedation which contributes 1.1 kcals/mL as fat. Monitor clinical progression, labs, etc. -DRT 05/01 POD #3. Vent. with Propofol at 14.6 ml/hr providing 385 additional kcal. Continues TPN Clinimix E 5% AA / 20% Dex at 75 ml/hr. With vent recalculated kcal needs to 2474. TPN at current rate provides 100% kcal needs and 102% protein needs including Propofol. Pt now on diuretics to improve pulmonary status. K+ low 3.0, BG ranging from 104-165 since yesterday, Alb. 2.3 trending down since admit date on 04/25. Low Ca but trending up. Pt. on electrolyte replacement. Will monitor TPN and labs as pt status changes. - RB 05/02 Pt cont on vent and TPN Clinimix E 5-20% at 75 ml/hr plus 250ml lipids and Propofol at 14.6 ml/hr. Meeting 100% kcal needs and 102% protein needs. Lipid emulsion plus Propofol provide 885 kcal or 36% kcals from fat which is within acceptable range. No longer on diuretic. BG still elevated due to TPN. Will cont to monitor changes in propofol, TPN, labs, etc. - RB 05/04 Pt now on 34.9 ml/hr Propofol plus Clinimix E 5-20 at 75 ml/hr and 250 ml lipid. Current rate of Propofol provides 921 additional kcal from fat plus 500 kcal lipid emulsion and 1584 kcal from TPN. This totals 3005 kcal - pt being overfed by 531 kcal or 121%. Pt wt also increasing but on diuretics. Recommend same rate of Clinimix E 5-20 at 75 ml/hr but no extra lipid because Propofol provides 31% kcal from fat. Without lipid, would provide 2505 total kcal, 101% kcal needs and 102% protein needs. Dr. weeks states potential extubation tomorrow for CT scan if elevated WBC and fever not resolved. Will cont. to monitor TPN and Propofol while sedated on vent. - RB 05/08 Pt cont onTPN. Per Dr salazar,goal is to extubate tomorrow. Lipid d/dedra. Pt cont TPN at 75ml/hr plus propofol meeting 104% est kcal and 102% est protein needs. Alb 2.4. Wt up 19#. BG stable 114- 149 past week. Will cont to monitor. BHAVNA 05/10 Pt cont on TPN. Diet has been advanced to clear liquid however pt did not eat first clear liquid diet offered. Pt no longer on propofol but is recieving lipids. TPN is meeting 100% est protein and 85% of est kcal need. Pt should consume additional kcal from clear liquids. Pt has flatus and faint bowel sounds. Recommend cont on TPN until oral intake can meet nutr needs. SIM DIEGO May 10, 2018 15:47
[2018-05-10] MEDS: FAT EMULSION 20% 250 ML BAG 250 ML IVPB SCH (16:27)
[2018-05-10] MEDS ORDERED: [UNRECOGNIZED DRUG - OTHER] IV SCH (18:15)
[2018-05-11] VITALS (15 sets, daily range): BP systolic 100–135; BP diastolic 65–81
[2018-05-11] MEDS: IMIPENEM/CILASTA(*) 500MG VIAL 500 MG in NS(*) 0.9% 100 ML BAG 100 ML IVPB SCH ×4 (02:56→21:46)
[2018-05-11 05:39] LABS: PLATELET COUNT, AUTOMATED 478 K/uL (150-450)
[2018-05-11] MEDS ORDERED: [UNRECOGNIZED DRUG - OTHER] IV SCH (06:51)
[2018-05-11] MEDS ORDERED: IBUPROFEN 200 MG TAB PO PRN (06:55)
[2018-05-11] MEDS ORDERED: ACETAMINOPHEN 325 MG TAB PO PRN (06:55)
--- NOTE | 2018-05-11 06:59 | General Surgery Progress Note ---
Subjective Progress Notes Subjective No complaints. No pain. Passing multiple liquid and semisolid stools. Physical Exam Vital Signs Date Time Temp Pulse Resp B/P (MAP) Pulse Ox O2 Delivery O2 Flow Rate FiO2 05/11/18 06:00 93 24 125/65 (85) 91 High-Flow Nasal Cannula 3.0 05/11/18 03:00 98.0 05/08/18 09:15 40.0 General Appearance: Alert, Awake, No Acute Distress, Afebrile GI: Soft and Non-Tender (Incision with some localized redness around lalo. No drainage.) Extremities: Warm, Perfused Result Diagram: 05/11/1852105/11/18521 Monitor Interpretation: Normal Sinus Rhythm Assessment and Plan Problems: (1) SBO (small bowel obstruction) Status: Acute Assessment & Plan: 04/25/18: This is his 1st small bowel obstruction. The ventral/incisional hernia is reducible so if this was the cause of the obstruction, he should improve fairly rapidly. Adhesions are also a strong possibility given his history of colon resection for colon cancer. We will start managing this conservatively with NG tube decompression and bowel rest as well as IV fluids. He seems to be very dehydrated based on his labs and so we' ll resuscitate him with crystalloid. If he fails to improve after 48-72 hours then he may need surgical exploration. I have explained this plan to him in great detail and he seems to understand and seems agreeable with this plan. We' ll start Lovenox for DVT prophylaxis and Protonix for GI prophylaxis. We will use intermittent Dilaudid as well as when necessary IV Tylenol and Toradol for pain control. 04/26/18: Doing better clinically. No flatus or BM yet. KUB unchanged. Continue resuscitation, bowel rest and decompression, IV fluids. Pain control, pulmonary hygiene, lovenox, PPI. 04/27/18: Seems to be improving. KUB with improving but still dilated loops of small bowel. Will get a water soluble SBFT today. NG tube removed last night at patient request after warning him that it may have to be replaced if his obstruction worsens. Continue bowel rest, IV fluids, etc. 04/28/18: No improvement, worse since SBFT. Contrast has not passed obstruction. Will proceed with ex-lap today to look for cause of obstruction and treat it. Will also need to address the hernia(s) and how I do this depends on whether bowel resection is necessary. I have explained surgery, alternatives, risks, recovery to the patient and his questions have been answered. He would like to proceed with surgery. Will place central line as well so we can start TPN postop. 04/29/18: POD#1 s/p bronchoscopy, ex-lap, small bowel resection, primary repair of several abdominal wall hernias, liver biopsy, central line placement. Stable overnight but hyperdynamic with mild tachycardia and mild fevers. Likely aspirated bile after induction. Will keep intubated today and let him physiologically recover. Will continue fluid recuscitation today. Continue IV abx, unasyn and vanco. Continue TPN. PPI and lovenox for prophylaxis. Will get PT/OT to see him once extubated. 04/30/18: POD#2. Tachycardic and hypoxic. Physiologic response to surgery and likely bile aspiration and now with likely chemical pneumonitis. Will increase PEEP to 10. CVP up to 15, could consider diuresis especially given fluffy appearance of lungs on CXR this morning. May also consider steroids for pneumonitis but he has an anastomosis and healing of this could be adversely affected by steroids. ABG is improving and base deficit is now normal. Will continue intubation/mech. ventilation until his inflammatory response improves and then, hopefully tomorrow, on POD#3 when he should start mobilizing 3rd spaced fluids, we can help him diurese and dry his lungs out a little, as much as his cardiovascular system will tolerate. Continue TPN, lovenox, PPI, IV abx. 05/01/18: POD#3. Improved HR. Pressures in high 90s systolic but now on propofol gtt for improved sedation/comfort. SaO2 in low 90s on 95%fiO2 and PEEP 10. CVP 8 this morning. Discussed with Hospitalist service. Will gently diurese him today and see how his BP tolerates this. Hopefully with help dry his lungs out and improve oxygenation/ventilation. Fluid status much improved, should start mobilizing 3rd space fluid today, already with increased UOP. Continue intubation/mech ventilation until pulmonary status improves. Continue TPN, lovenox, PPI, IV abx. Hospitalist changing abx coverage from unasyn to primaxin/vanco. Continue ICU care. 05/02/18: POD#4. Improving. HR normal. SBP in 90s on proprofol gtt. Oxygenation is improving, now on PEEP 12 and FiO2. CXR with improved aeration this morning but still with signs of infiltrate in bases c/w aspiration as well as pulmonary edema. Continue intubation/sedation/ventilation today. He is self -diuresing at this point. Will plan on weaning from vent when his settings can be weaned to minimal support settings, hopefully in the next couple of days. Continue TPN, IV abx, lovenox, PPI. 05/03/18: POD#5. Continued improvement. HR normal. SBP in low 100s. Oxygenation is improving, now on PEEP 5. He becomes very agitated when sedation is weaned and he desats and becomes very tachypneic. Will need to continue sedation holidays and let him work on the vent. CXR still with signs of pulmonary edema but he's auto diuresing. Replace K today. Continue intubation/ventilation today and will start checking daily weaning parameters. Continue TPN, IV abx, lovenox, PPI. 05/04/18: POD#6. Stable but still having fevers and WBC has leveled off at 14K on primaxin and vancomycin. If fevers and WBC don't improve by tomorrow morning then will get a CT abd/pelvis tomorrow. CXR pending. Low K, replace. Cotinue daily sedation holidays and vent weaning measures but won't plan to extubate until at least tomorrow after we know if fevers/WBC improve or CT reveals no need for reoperation (i.e. no anastomotic leak or abscess). Could also consider adding antifungal coverage to abx. Cotinue primaxin/vanco, TPN, lovenox, PPI. 05/05/18: POD#7. Continued fevers and leukocytosis. ICU staff are noticing "a lot" of oral secretions. Will get a CT chest/abdomen/pelvis and sinuses today. Continue IV abx, TPN, lovenox, PPI. If CT scans unremarkable (i.e. no anastomotic leak of fluid collections/abscess) then will work on weaning from vent with hope for extubation in next day or two, if possible. 05/06/18: POD#8. CT yesterday reveals sinusitis and some fluid collections adjacent and in his abdominal wall, likely seromas related to surgery and his incisional hernia repairs. No obvious signs of anastomotic leak but motion artifact obscures the images to some degree. Improving from respiratory standpoint but still having fevers. WBC slowly coming down but was 11K yesterday and this morning. Will follow this. Continue bowel rest, TPN, IV abx. I would like to see fevers and WBC normalize before extubating him. Continue lovenox, PPI, etc. 05/07/18: POD#9. Seems to be doing a little better. WBC is down this morning. Still having fevers. Will see if they improve over the next day. May try to wean from vent with hope for extubation tomorrow. Continue bowel rest, TPN, IV abx, lovenox, PPI, etc. Replace K. 05/08/18: POD#10. Continued improvement but continued fevers. WBC still normal , bands decreasing. Will wean vent/sedation, hope to extubate today. Will have Dr. Husain, ENT consult regarding severe sinusitis on CT. Continue TPN, IV abx, lovenox, PPI, etc. 05/09/18: POD#11. Extubated yesterday. WBC up a little bit with continued fevers but he denies any abdominal pain. Abdominal exam indeterminate since I repaired several ventral hernias (suture repair only) but his abdomen is firm where these have been repaired but he denies TTP. Dr. Husain only recommended afrin nasal spray for sinusitis and NG removed so this should help drainage. Continue bowel rest and TPN until bowel function returns. Hospitalist has stopped vancomycin and fluconazole and he remains only on primaxin at this point , will need to follow this. New blood and urine cultures are pending. Will get PT/OT to see patient and start working with him today. Lalo out of incision later this week. Continue Lovenox and PPI. 05/10/18: POD#12. Doing much better today. WBC back down to normal. Still having low grade fevers overnight, just over 100F. Abdomen is soft and nontender, very benign this morning. Passing flatus so will start clear diet. D/C juárez today. Continue primaxin until afebrile for 24 hours and normal WBC. Continue TPN until tolerating diet. Continue PT/OT, ambulation, IS, pulmonary hygiene, lovenox, PPI. If he does OK then he could transfer to Med/ Surg later today or tomorrow. 05/11/18: POD#13. Doing better, now with bowel activity. Will start regular diet and stop TPN today. Fevers better but WBC up a little this morning to 13K , will need to follow this. Abdominal exam is benign. Will remove lalo tomorrow. Transfer to Med/Surg today. Continue Primaxin until afebrile for 24 hours and normal WBC. Continue PT/OT, ambulation, IS pulmonary hygiene, lovenox , PPI. Will convert meds to PO. (2) Fever Status: Acute (3) Aspiration pneumonia due to vomit Status: Acute Central Venous Access Medical Necessity for Access: Hemodynamic Monitoring, IV Access, Medication Administration Condition Stable. Time Spent: < 30 min Exam Sepsis Risk: Sepsis Risk Problem Qualifiers (1) Fever: Fever type: post-procedural Qualified Codes: R50.82 - Postprocedural fever (2) Aspiration pneumonia due to vomit: Laterality: bilateral BEATRIZ FERNANDEZ MD May 11, 2018 06:59
[2018-05-11] MEDS: FUROSEMIDE 20 MG/2 ML VIAL IVP SCH (09:43)
[2018-05-11] MEDS: PANTOPRAZOLE SOD 40 MG TABEC PO SCH (09:44)
[2018-05-11] MEDS: POTASSIUM CHL 10 MEQ TABCR PO SCH ×3 (09:44→18:15)
[2018-05-11] MEDS: VENLAFAXINE XR 75 MG CAPCR PO SCH (09:44)
[2018-05-11] MEDS: ENOXAPARIN 40 MG/0.4ML SYR SC SCH (09:45)
--- NOTE | 2018-05-11 11:00 | Hospitalist Progress Note ---
Subjective Progress Notes Subjective He denies cp/sob. Physical Exam Vital Signs Date Time Temp Pulse Resp B/P (MAP) Pulse Ox O2 Delivery O2 Flow Rate FiO2 05/11/18 09:54 93 05/11/18 09:00 98.7 28 108/71 (83) 93 High-Flow Nasal Cannula 3.0 05/08/18 09:15 40.0 Intake and Output 05/12/18 07:00 # Voids 1 # Bowel Movements 1 General Appearance: Alert, Awake, No Acute Distress Cardiovascular: Regular Rate and Rhythm Respiratory: Clear to Auscultation Result Diagram: 05/11/1852105/11/18521 Monitor Interpretation: Normal Sinus Rhythm Assessment and Plan Problems: (1) Fever Status: Acute Assessment & Plan: He has had a persistent fever since 04/29. The last fever was in the morning of 05/10. He did initially have an elevated WBC, but this has now improved. Originally his fever was attributed to aspiration pneumonia, but his x-ray has now cleared and he has completed 2 courses of appropriate antibiotics with persistent fever. A sinus CT scan showed findings consistent with sinusitis and mastoiditis, but these could also be explained by his lines and tubing. Also, the antibiotics should cover these. He is currently on Primaxin. Previously he had been on Unasyn, vancomycin, fluconazole. All of his cultures have been negative to this point. He does have a fluid collection in the abdomen, which is believed to be a post operative reaction. Blood cultures negative from 05/08. He did grow a GNR in his sputum from 05/08. Clinically, he is doing well. (2) Aspiration pneumonia Assessment & Plan: He did have an aspiration event prior to surgery. Bronchoscopy was performed immediately after to wash out the airways. He developed bilateral infiltrates on his chest x-ray. He is on antibiotic as above. Improved/resolved CXR greatly improved now extubated. (3) Acute respiratory failure Assessment & Plan: He was intubated from 04/28-05/08. Stable on nasal canula. (4) Hyperglycemia Assessment & Plan: This is likely secondary to TPN. Insulin was included in his TPN and he is also on sliding scale level #2. TPN getting weaned off. (5) SBO (small bowel obstruction) Status: Acute Assessment & Plan: He did undergo exploratory laparotomy with adhesion lysis, liver biopsy and abdominal hernia repair. (6) Depression Status: Chronic Assessment & Plan: He is on chronic treatment with Effexor XR, investigating dose with pharmacy may resume once clarified. 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 (8) Colon cancer Status: Resolved Assessment & Plan: Resolved. He did have liver nodules noted during the exploratory lap and a liver biopsy was done - negative for malignancy. (9) Hypervolemia Assessment & Plan: He has had approximately 10kg weight gain since admission. He is now on scheduled Lasix and his weights (and chest x-ray) are improving. Central Venous Access Medical Necessity for Access: Hemodynamic Monitoring, IV Access, Medication Administration Exam Sepsis Risk: Sepsis Risk Problem Qualifiers (1) Fever: Fever type: post-procedural Qualified Codes: R50.82 - Postprocedural fever OSCAR REMY MD May 11, 2018 10:59
--- NOTE | 2018-05-11 14:38 | Antimicrobial Stewardship ---
Antimicrobial Time Out Comments Comments 47 yo M with a history of colon cancer s/p chemotherapy who presented with symptoms of a bowel obstruction. Failed conservative decompression/rest, taken to the OR on 04/28/18 for planned resection. Prior to intubation pt aspirated biliary contents into his airway. Pt was intubated and bronched to wash out aspirate in the OR prior to planned resection. Pt brought to the ICU and remained on the ventilator, now extubated and doing well. Tmax- afebrile, last fever was on 05/10/18 at 11 am WBCs slightly elevated at 13.7, but trending toward normal Blood Cx x 2 on 05/08/18 - NGTD Sputum Cx 05/08 post extubation - growing H. influenzae and E. Cloacae - adequate coverage on primaxin 05/10/18 Chest Xray - improved overall, infiltrates no longer visible Remains on Primaxin 1. Aspiration pneumonia - witnessed episode prior to intubation on 04/28, antibiotic started on 04/28 with Unasyn, pt clinically deteriorating. Recommend switching to Primaxin and Vancomycin to broaden coverage as the patient has been inpatient since 04/25. Today is day 11 of primaxin, consider d/c between 10 -14 days of therapy. Abx history: 04/28-05/01--> Unasyn 05/01- current--> Primaxin ( 05/11/18- day 11) 05/01-05/08 --> Vancomycin 05/04 - 05/07 --> Fluconazole Consider d/c antibiotics within the next 24 hours. Adela Dawkins, PharmD, BCOP ADELA DAWKINS May 11, 2018 13:58
[2018-05-11] MEDS ORDERED: ALTEPLASE RECOMB 2 MG VIAL IVP ONE (15:30)
[2018-05-11] MEDS ORDERED: NORMOSOL R SOLN(*) 1000 ML BAG 1,000 ML IV ONE (21:43)
[2018-05-12] MEDS: IMIPENEM/CILASTA(*) 500MG VIAL 500 MG in NS(*) 0.9% 100 ML BAG 100 ML IVPB SCH (03:45)
[2018-05-12 06:04] LABS: PLATELET COUNT, AUTOMATED 585 K/uL (150-450)
[2018-05-12 07:33] VITALS: BP 107/68
[2018-05-12] MEDS: POTASSIUM CHL 10 MEQ TABCR PO SCH ×2 (07:42→16:34)
--- NOTE | 2018-05-12 08:27 | General Surgery Progress Note ---
Subjective Progress Notes Subjective No complaints. No pain. Tolerating diet. Passing flatus and stool. Physical Exam Vital Signs Date Time Temp Pulse Resp B/P (MAP) Pulse Ox O2 Delivery O2 Flow Rate FiO2 05/12/18 07:33 98.8 93 20 107/68 (81) 92 High-Flow Nasal Cannula 4.0 05/08/18 09:15 40.0 General Appearance: Alert, Awake, No Acute Distress, Afebrile GI: Soft and Non-Tender (Lalo removed. There is a small area of dehiscence draining purulent fluid from above the umbilicus. Not much overlying erythema. Washed this area out and applied a dry dressing over the small draining hole.) Extremities: Warm, Perfused Result Diagram: 05/12/18 0544 05/12/18 0544 Monitor Interpretation: Normal Sinus Rhythm Assessment and Plan Problems: (1) SBO (small bowel obstruction) Status: Acute Assessment & Plan: 04/25/18: This is his 1st small bowel obstruction. The ventral/incisional hernia is reducible so if this was the cause of the obstruction, he should improve fairly rapidly. Adhesions are also a strong possibility given his history of colon resection for colon cancer. We will start managing this conservatively with NG tube decompression and bowel rest as well as IV fluids. He seems to be very dehydrated based on his labs and so we' ll resuscitate him with crystalloid. If he fails to improve after 48-72 hours then he may need surgical exploration. I have explained this plan to him in great detail and he seems to understand and seems agreeable with this plan. We' ll start Lovenox for DVT prophylaxis and Protonix for GI prophylaxis. We will use intermittent Dilaudid as well as when necessary IV Tylenol and Toradol for pain control. 04/26/18: Doing better clinically. No flatus or BM yet. KUB unchanged. Continue resuscitation, bowel rest and decompression, IV fluids. Pain control, pulmonary hygiene, lovenox, PPI. 04/27/18: Seems to be improving. KUB with improving but still dilated loops of small bowel. Will get a water soluble SBFT today. NG tube removed last night at patient request after warning him that it may have to be replaced if his obstruction worsens. Continue bowel rest, IV fluids, etc. 04/28/18: No improvement, worse since SBFT. Contrast has not passed obstruction. Will proceed with ex-lap today to look for cause of obstruction and treat it. Will also need to address the hernia(s) and how I do this depends on whether bowel resection is necessary. I have explained surgery, alternatives, risks, recovery to the patient and his questions have been answered. He would like to proceed with surgery. Will place central line as well so we can start TPN postop. 04/29/18: POD#1 s/p bronchoscopy, ex-lap, small bowel resection, primary repair of several abdominal wall hernias, liver biopsy, central line placement. Stable overnight but hyperdynamic with mild tachycardia and mild fevers. Likely aspirated bile after induction. Will keep intubated today and let him physiologically recover. Will continue fluid recuscitation today. Continue IV abx, unasyn and vanco. Continue TPN. PPI and lovenox for prophylaxis. Will get PT/OT to see him once extubated. 04/30/18: POD#2. Tachycardic and hypoxic. Physiologic response to surgery and likely bile aspiration and now with likely chemical pneumonitis. Will increase PEEP to 10. CVP up to 15, could consider diuresis especially given fluffy appearance of lungs on CXR this morning. May also consider steroids for pneumonitis but he has an anastomosis and healing of this could be adversely affected by steroids. ABG is improving and base deficit is now normal. Will continue intubation/mech. ventilation until his inflammatory response improves and then, hopefully tomorrow, on POD#3 when he should start mobilizing 3rd spaced fluids, we can help him diurese and dry his lungs out a little, as much as his cardiovascular system will tolerate. Continue TPN, lovenox, PPI, IV abx. 05/01/18: POD#3. Improved HR. Pressures in high 90s systolic but now on propofol gtt for improved sedation/comfort. SaO2 in low 90s on 95%fiO2 and PEEP 10. CVP 8 this morning. Discussed with Hospitalist service. Will gently diurese him today and see how his BP tolerates this. Hopefully with help dry his lungs out and improve oxygenation/ventilation. Fluid status much improved, should start mobilizing 3rd space fluid today, already with increased UOP. Continue intubation/mech ventilation until pulmonary status improves. Continue TPN, lovenox, PPI, IV abx. Hospitalist changing abx coverage from unasyn to primaxin/vanco. Continue ICU care. 05/02/18: POD#4. Improving. HR normal. SBP in 90s on proprofol gtt. Oxygenation is improving, now on PEEP 12 and FiO2. CXR with improved aeration this morning but still with signs of infiltrate in bases c/w aspiration as well as pulmonary edema. Continue intubation/sedation/ventilation today. He is self -diuresing at this point. Will plan on weaning from vent when his settings can be weaned to minimal support settings, hopefully in the next couple of days. Continue TPN, IV abx, lovenox, PPI. 05/03/18: POD#5. Continued improvement. HR normal. SBP in low 100s. Oxygenation is improving, now on PEEP 5. He becomes very agitated when sedation is weaned and he desats and becomes very tachypneic. Will need to continue sedation holidays and let him work on the vent. CXR still with signs of pulmonary edema but he's auto diuresing. Replace K today. Continue intubation/ventilation today and will start checking daily weaning parameters. Continue TPN, IV abx, lovenox, PPI. 05/04/18: POD#6. Stable but still having fevers and WBC has leveled off at 14K on primaxin and vancomycin. If fevers and WBC don't improve by tomorrow morning then will get a CT abd/pelvis tomorrow. CXR pending. Low K, replace. Cotinue daily sedation holidays and vent weaning measures but won't plan to extubate until at least tomorrow after we know if fevers/WBC improve or CT reveals no need for reoperation (i.e. no anastomotic leak or abscess). Could also consider adding antifungal coverage to abx. Cotinue primaxin/vanco, TPN, lovenox, PPI. 05/05/18: POD#7. Continued fevers and leukocytosis. ICU staff are noticing "a lot" of oral secretions. Will get a CT chest/abdomen/pelvis and sinuses today. Continue IV abx, TPN, lovenox, PPI. If CT scans unremarkable (i.e. no anastomotic leak of fluid collections/abscess) then will work on weaning from vent with hope for extubation in next day or two, if possible. 05/06/18: POD#8. CT yesterday reveals sinusitis and some fluid collections adjacent and in his abdominal wall, likely seromas related to surgery and his incisional hernia repairs. No obvious signs of anastomotic leak but motion artifact obscures the images to some degree. Improving from respiratory standpoint but still having fevers. WBC slowly coming down but was 11K yesterday and this morning. Will follow this. Continue bowel rest, TPN, IV abx. I would like to see fevers and WBC normalize before extubating him. Continue lovenox, PPI, etc. 05/07/18: POD#9. Seems to be doing a little better. WBC is down this morning. Still having fevers. Will see if they improve over the next day. May try to wean from vent with hope for extubation tomorrow. Continue bowel rest, TPN, IV abx, lovenox, PPI, etc. Replace K. 05/08/18: POD#10. Continued improvement but continued fevers. WBC still normal , bands decreasing. Will wean vent/sedation, hope to extubate today. Will have Dr. Husain, ENT consult regarding severe sinusitis on CT. Continue TPN, IV abx, lovenox, PPI, etc. 05/09/18: POD#11. Extubated yesterday. WBC up a little bit with continued fevers but he denies any abdominal pain. Abdominal exam indeterminate since I repaired several ventral hernias (suture repair only) but his abdomen is firm where these have been repaired but he denies TTP. Dr. Husain only recommended afrin nasal spray for sinusitis and NG removed so this should help drainage. Continue bowel rest and TPN until bowel function returns. Hospitalist has stopped vancomycin and fluconazole and he remains only on primaxin at this point , will need to follow this. New blood and urine cultures are pending. Will get PT/OT to see patient and start working with him today. [place] out of incision later this week. Continue Lovenox and PPI. 05/10/18: POD#12. Doing much better today. WBC back down to normal. Still having low grade fevers overnight, just over 100F. Abdomen is soft and nontender, very benign this morning. Passing flatus so will start clear diet. D/C juárez today. Continue primaxin until afebrile for 24 hours and normal WBC. Continue TPN until tolerating diet. Continue PT/OT, ambulation, IS, pulmonary hygiene, lovenox, PPI. If he does OK then he could transfer to Med/ Surg later today or tomorrow. 05/11/18: POD#13. Doing better, now with bowel activity. Will start regular diet and stop TPN today. Fevers better but WBC up a little this morning to 13K , will need to follow this. Abdominal exam is benign. Will remove lalo tomorrow. Transfer to Med/Surg today. Continue Primaxin until afebrile for 24 hours and normal WBC. Continue PT/OT, ambulation, IS pulmonary hygiene, lovenox , PPI. Will convert meds to PO. 05/12/18: POD#14. Continued improvement. [place] removed today. There is a localized infected seroma that I drained. We will start wound care on this. Continue regular diet. We'll switch Primaxin to oral Augmentin. Abdominal exam is benign. He could potentially go home tomorrow if he continues to do well today. (2) Fever Status: Acute (3) Aspiration pneumonia due to vomit Status: Acute (4) Wound infection after surgery Status: Acute Assessment & Plan: Will initiate wound care. Central Venous Access Medical Necessity for Access: Hemodynamic Monitoring, IV Access, Medication Administration Condition Stable Time Spent: < 30 min Exam Sepsis Risk: Sepsis Risk Problem Qualifiers (1) Fever: Fever type: post-procedural Qualified Codes: R50.82 - Postprocedural fever (2) Aspiration pneumonia due to vomit: Laterality: bilateral (3) Wound infection after surgery: Encounter type: initial encounter Qualified Codes: T81.4XXA - Infection following a procedure, initial encounter BEATRIZ FERANNDEZ MD May 12, 2018 08:26
[2018-05-12] MEDS: FUROSEMIDE 20 MG/2 ML VIAL IVP SCH (10:17)
[2018-05-12] MEDS: VENLAFAXINE XR 75 MG CAPCR PO SCH (10:19)
[2018-05-12] MEDS: AMOX/CLAV 875 MG TAB PO SCH ×2 (10:19→16:34)
[2018-05-12] MEDS: PANTOPRAZOLE SOD 40 MG TABEC PO SCH (10:19)
[2018-05-12] MEDS: ENOXAPARIN 40 MG/0.4ML SYR SC SCH (10:19)
[2018-05-12 10:24] VITALS: BP 108/67
--- NOTE | 2018-05-12 12:47 | Medical Nutrition Therapy ---
Nutrition Anthropometrics Height (Inches): 70.00 Height (Calculated Centimeters: 177.090913 Weight (Pounds): 210 Weight (Calculated Kilograms): 95.481 BMI: 31.4 Abram Nutrition Score: Adequate Abram Nutrition Risk Score: 17 Dietary Referral Nutrition Risk Factors: Nutrition Risk Comment: Nutritional Diagnosis Nutritional Risk Acuity 1: TPN/PPN, GI Obstruction Past Medical History: Colon CA Nutritional Acuity: 1-High Nutrition Diagnosis: Altered GI Function Nutrition Etiology: Physiological Causes Nutrition Problem/Etiology/Sym: AEB SBO Energy Requirement: 2474 ([address] x 1.2 SF x 1.1 AF) Protein Requirement: 88 (1gm/kg) Fluid Requirement: 2474 (30ml/kg) Diet Type: Diet as Tolerated LESLIE/REG Nutrition Intervention: Cont diet as ordered Drug: Diuretics Drug/Nutrition Recommendations: Patient Taking K+ Nutrition Monitoring & Eval Nutrition Goals: Eat 50-100% Meal (05/12. LESLIE/REG) RD Patient Assessment Time: [address] Assessment Type: RD Re-Assessment Patient Nutrition Acuity: 1-High Follow Up Date: May 14, 2018 Nutritional Comment: 04/26 Pt currently NPO for SBO. Pt recieving NG suction. No flatus or bowel sounds at this time. Dr reports pt is dehydrated. Pt cont elevated H/H, BUN, creatinine. Alb WNR at 4.6. Recommend nutrition support if NPO > 3 days. BK 04/28 Pt has agreed to surgery per . note. Bowel function indicates hypoactive, no flatus and very distended - SOB not resolved. Pt to start TPN this afternoon following procedure. Current rate Clinimex 5/15% 75ml/hr which will provide 91% kcal and 98% protein needs. Recommend changing to Clinimex 5/15% 83ml/hr to provide 100% kcal and 113% protein needs. Labs indicate very low K 2.9, Glucose 160 down from 237. BUN 34. Will monitor TPN and labs for any changes. - RB 04/29 POD#1 for small bowel resection, repair of abdominal wall hernias, adhesion lysis. Low H/H, Alb 2.2, Low Ca+, Glu 146k, High Na+. Continues with TPN Clinimix E 5-20% at 75mL/hr with 250 mL/day of Intralipid 20%. Pt also receiving propofol for sedation which contributes 1.1 kcals/mL as fat. Monitor clinical progression, labs, etc. -DRT 05/01 POD #3. Vent. with Propofol at 14.6 ml/hr providing 385 additional kcal. Continues TPN Clinimix E 5% AA / 20% Dex at 75 ml/hr. With vent recalculated kcal needs to 2474. TPN at current rate provides 100% kcal needs and 102% protein needs including Propofol. Pt now on diuretics to improve pulmonary status. K+ low 3.0, BG ranging from 104-165 since yesterday, Alb. 2.3 trending down since admit date on 04/25. Low Ca but trending up. Pt. on electrolyte replacement. Will monitor TPN and labs as pt status changes. - RB 05/02 Pt cont on vent and TPN Clinimix E 5-20% at 75 ml/hr plus 250ml lipids and Propofol at 14.6 ml/hr. Meeting 100% kcal needs and 102% protein needs. Lipid emulsion plus Propofol provide 885 kcal or 36% kcals from fat which is within acceptable range. No longer on diuretic. BG still elevated due to TPN. Will cont to monitor changes in propofol, TPN, labs, etc. - RB 05/04 Pt now on 34.9 ml/hr Propofol plus Clinimix E 5-20 at 75 ml/hr and 250 ml lipid. Current rate of Propofol provides 921 additional kcal from fat plus 500 kcal lipid emulsion and 1584 kcal from TPN. This totals 3005 kcal - pt being overfed by 531 kcal or 121%. Pt wt also increasing but on diuretics. Recommend same rate of Clinimix E 5-20 at 75 ml/hr but no extra lipid because Propofol provides 31% kcal from fat. Without lipid, would provide 2505 total kcal, 101% kcal needs and 102% protein needs. Dr. weeks states potential extubation tomorrow for CT scan if elevated WBC and fever not resolved. Will cont. to monitor TPN and Propofol while sedated on vent. - RB 05/08 Pt cont onTPN. Per Dr salazar,goal is to extubate tomorrow. Lipid d/dedra. Pt cont TPN at 75ml/hr plus propofol meeting 104% est kcal and 102% est protein needs. Alb 2.4. Wt up 19#. BG stable 114- 149 past week. Will cont to monitor. BK 05/10 Pt cont on TPN. Diet has been advanced to clear liquid however pt did not eat first clear liquid diet offered. Pt no longer on propofol but is recieving lipids. TPN is meeting 100% est protein and 85% of est kcal need. Pt should consume additional kcal from clear liquids. Pt has flatus and faint bowel sounds. Recommend cont on TPN until oral intake can meet nutr needs. BK 05/12. Pt is improving. Removed from TPN, diet advanced to LESLIE/REG. says pt is tolerating diet. However, reports show pt refused to eat dinner on 05/11 and pt refused breakfast on 05/12. Encourage intake as tolerated to meet nutritional needs. Pt passing flatus and stool. No lab concerns. Follow up with intake, weight, and labs. MR SUMMERSZEUS May 12, 2018 12:47
--- NOTE | 2018-05-12 13:17 | Hospitalist Progress Note ---
Subjective Progress Notes Subjective No new complaints. Physical Exam Vital Signs Date Time Temp Pulse Resp B/P (MAP) Pulse Ox O2 Delivery O2 Flow Rate FiO2 05/12/18 10:24 97.5 84 18 108/67 (81) 95 High-Flow Nasal Cannula 3.0 05/08/18 09:15 40.0 General Appearance: Alert, Awake, No Acute Distress Neuro: No Gross deficits Cardiovascular: Regular Rate and Rhythm Respiratory: Clear to Auscultation (Anteriorly. With decreased BS posteriorly.) GI: Soft and Non-Tender, Other (Midline abdominal wound.) Extremities: Warm, Perfused, Other (No edema.) Psych: Alert & Oriented X3, Appropriate Mood & Affect Result Diagram: 05/12/18 0544 05/12/18 05 Monitor Interpretation: Normal Sinus Rhythm Assessment and Plan Problems: (1) Fever Status: Acute Assessment & Plan: He had a persistent fever from 04/29 until the morning of 05/10. He did initially have an elevated WBC, but this improved. Originally his fever was attributed to aspiration pneumonia, but his x-ray cleared and he completed 2 courses of appropriate antibiotics. A sinus CT scan showed findings consistent with sinusitis and mastoiditis, but these could also have been explained by his lines and tubing. Also, the antibiotics should have covered these. Dr. Calderón switched him from Primaxin to Augmentin on 05/12. Previously he had been on Unasyn, vancomycin, fluconazole. All of his cultures have been negative to this point. He does have a fluid collection in the abdomen, which is believed to be a post operative reaction. Blood cultures negative from 05/08. He did grow a GNR in his sputum from 05/08. Clinically, he is doing well. The hospitalist service will sign off for now. Feel free to call for any further concerns. (2) Aspiration pneumonia Assessment & Plan: He did have an aspiration event prior to surgery. Bronchoscopy was performed immediately after to wash out the airways. He developed bilateral infiltrates on his chest x-ray. He has been on antibiotics as above. He is now extubated and much improved. CXR is now normal. (3) Acute respiratory failure Assessment & Plan: He was intubated from 04/28-05/08. Stable on nasal canula. (4) Hyperglycemia Assessment & Plan: This is likely secondary to TPN. Insulin was included in his TPN and he was also on sliding scale level #2. TPN weaned off and blood sugars much improved. (5) SBO (small bowel obstruction) Status: Acute Assessment & Plan: He did undergo exploratory laparotomy with adhesion lysis, liver biopsy and abdominal hernia repair. (6) Depression Status: Chronic Assessment & Plan: He is on chronic treatment with Effexor XR. 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 (8) Colon cancer Status: Resolved Assessment & Plan: Resolved. He did have liver nodules noted during the exploratory lap and a liver biopsy was done - negative for malignancy. (9) Hypervolemia Assessment & Plan: He has had approximately 10kg weight gain since admission. He was placed on scheduled Lasix and his weights (and chest x-ray) improved. Will stop the Lasix now. Central Venous Access Medical Necessity for Access: Hemodynamic Monitoring, IV Access, Medication Administration Time Spent on Plan of Care: < 30 min Exam Sepsis Risk: Sepsis Risk Problem Qualifiers (1) Fever: Fever type: post-procedural Qualified Codes: R50.82 - Postprocedural fever YOANA SALVADOR MD May 12, 2018 13:16
[2018-05-12 15:00] VITALS: BP 118/74
[2018-05-12 20:00] VITALS: BP 115/64
[2018-05-13 00:21] VITALS: BP 101/67
[2018-05-13 06:12] LABS: PLATELET COUNT, AUTOMATED 596 K/uL (150-450)
[2018-05-13 07:30] VITALS: BP 115/66
--- NOTE | 2018-05-13 09:00 | General Surgery Progress Note ---
Subjective Progress Notes Subjective Feels well; Ambulating; zahraa diet, afebrile; On Augmentin; Wound with single area of skin opened/dressed with min drainage; Not being compliant with O2 Patient Complains of: Neurological: No: Syncope, Weakness Cardiovascular: No: Chest Pain Respiratory: No: Cough, Shortness of Breath Gastrointestinal: Flatus, Bowel Movement, No Nausea, No Vomiting Musculoskeletal: No: Impaired Mobility Physical Exam Vital Signs Date Time Temp Pulse Resp B/P (MAP) Pulse Ox O2 Delivery O2 Flow Rate FiO2 05/13/18 07:32 82 05/13/18 07:30 98.9 88 18 115/66 (82) Room Air 05/12/18 20:00 2.0 General Appearance: Alert, Awake, No Acute Distress, Afebrile Eyes: PERRLA, Other (EOMI) ENT: Moist Mucous Membranes Cardiovascular: Normal Rhythm & Peripheral Pulses, Regular Rate and Rhythm, No Edema Respiratory: No Respiratory Distress, Clear to Auscultation GI: Soft and Non-Tender, Other (WOUND: 1 cm skin opening, probed, no drainage) Musculoskeletal: No Weakness/Pain Extremities: Warm, Pulses, Perfused, No Edema Integumentary: Skin Intact without Lesion / Mass Psych: Alert & Oriented X3, Appropriate Mood & Affect, Other (Refusiing to use O2) Result Diagram: 05/13/18 0530 05/13/18 0530 Monitor Interpretation: Normal Sinus Rhythm Assessment and Plan Problems: (1) SBO (small bowel obstruction) Status: Acute Assessment & Plan: 04/25/18: This is his 1st small bowel obstruction. The ventral/incisional hernia is reducible so if this was the cause of the obstruction, he should improve fairly rapidly. Adhesions are also a strong possibility given his history of colon resection for colon cancer. We will start managing this conservatively with NG tube decompression and bowel rest as well as IV fluids. He seems to be very dehydrated based on his labs and so we' ll resuscitate him with crystalloid. If he fails to improve after 48-72 hours then he may need surgical exploration. I have explained this plan to him in great detail and he seems to understand and seems agreeable with this plan. We' ll start Lovenox for DVT prophylaxis and Protonix for GI prophylaxis. We will use intermittent Dilaudid as well as when necessary IV Tylenol and Toradol for pain control. 04/26/18: Doing better clinically. No flatus or BM yet. KUB unchanged. Continue resuscitation, bowel rest and decompression, IV fluids. Pain control, pulmonary hygiene, lovenox, PPI. 04/27/18: Seems to be improving. KUB with improving but still dilated loops of small bowel. Will get a water soluble SBFT today. NG tube removed last night at patient request after warning him that it may have to be replaced if his obstruction worsens. Continue bowel rest, IV fluids, etc. 04/28/18: No improvement, worse since SBFT. Contrast has not passed obstruction. Will proceed with ex-lap today to look for cause of obstruction and treat it. Will also need to address the hernia(s) and how I do this depends on whether bowel resection is necessary. I have explained surgery, alternatives, risks, recovery to the patient and his questions have been answered. He would like to proceed with surgery. Will place central line as well so we can start TPN postop. 04/29/18: POD#1 s/p bronchoscopy, ex-lap, small bowel resection, primary repair of several abdominal wall hernias, liver biopsy, central line placement. Stable overnight but hyperdynamic with mild tachycardia and mild fevers. Likely aspirated bile after induction. Will keep intubated today and let him physiologically recover. Will continue fluid recuscitation today. Continue IV abx, unasyn and vanco. Continue TPN. PPI and lovenox for prophylaxis. Will get PT/OT to see him once extubated. 04/30/18: POD#2. Tachycardic and hypoxic. Physiologic response to surgery and likely bile aspiration and now with likely chemical pneumonitis. Will increase PEEP to 10. CVP up to 15, could consider diuresis especially given fluffy appearance of lungs on CXR this morning. May also consider steroids for pneumonitis but he has an anastomosis and healing of this could be adversely affected by steroids. ABG is improving and base deficit is now normal. Will continue intubation/mech. ventilation until his inflammatory response improves and then, hopefully tomorrow, on POD#3 when he should start mobilizing 3rd spaced fluids, we can help him diurese and dry his lungs out a little, as much as his cardiovascular system will tolerate. Continue TPN, lovenox, PPI, IV abx. 05/01/18: POD#3. Improved HR. Pressures in high 90s systolic but now on propofol gtt for improved sedation/comfort. SaO2 in low 90s on 95%fiO2 and PEEP 10. CVP 8 this morning. Discussed with Hospitalist service. Will gently diurese him today and see how his BP tolerates this. Hopefully with help dry his lungs out and improve oxygenation/ventilation. Fluid status much improved, should start mobilizing 3rd space fluid today, already with increased UOP. Continue intubation/mech ventilation until pulmonary status improves. Continue TPN, lovenox, PPI, IV abx. Hospitalist changing abx coverage from unasyn to primaxin/vanco. Continue ICU care. 05/02/18: POD#4. Improving. HR normal. SBP in 90s on proprofol gtt. Oxygenation is improving, now on PEEP 12 and FiO2. CXR with improved aeration this morning but still with signs of infiltrate in bases c/w aspiration as well as pulmonary edema. Continue intubation/sedation/ventilation today. He is self -diuresing at this point. Will plan on weaning from vent when his settings can be weaned to minimal support settings, hopefully in the next couple of days. Continue TPN, IV abx, lovenox, PPI. 05/03/18: POD#5. Continued improvement. HR normal. SBP in low 100s. Oxygenation is improving, now on PEEP 5. He becomes very agitated when sedation is weaned and he desats and becomes very tachypneic. Will need to continue sedation holidays and let him work on the vent. CXR still with signs of pulmonary edema but he's auto diuresing. Replace K today. Continue intubation/ventilation today and will start checking daily weaning parameters. Continue TPN, IV abx, lovenox, PPI. 05/04/18: POD#6. Stable but still having fevers and WBC has leveled off at 14K on primaxin and vancomycin. If fevers and WBC don't improve by tomorrow morning then will get a CT abd/pelvis tomorrow. CXR pending. Low K, replace. Cotinue daily sedation holidays and vent weaning measures but won't plan to extubate until at least tomorrow after we know if fevers/WBC improve or CT reveals no need for reoperation (i.e. no anastomotic leak or abscess). Could also consider adding antifungal coverage to abx. Cotinue primaxin/vanco, TPN, lovenox, PPI. 05/05/18: POD#7. Continued fevers and leukocytosis. ICU staff are noticing "a lot" of oral secretions. Will get a CT chest/abdomen/pelvis and sinuses today. Continue IV abx, TPN, lovenox, PPI. If CT scans unremarkable (i.e. no anastomotic leak of fluid collections/abscess) then will work on weaning from vent with hope for extubation in next day or two, if possible. 05/06/18: POD#8. CT yesterday reveals sinusitis and some fluid collections adjacent and in his abdominal wall, likely seromas related to surgery and his incisional hernia repairs. No obvious signs of anastomotic leak but motion artifact obscures the images to some degree. Improving from respiratory standpoint but still having fevers. WBC slowly coming down but was 11K yesterday and this morning. Will follow this. Continue bowel rest, TPN, IV abx. I would like to see fevers and WBC normalize before extubating him. Continue lovenox, PPI, etc. 05/07/18: POD#9. Seems to be doing a little better. WBC is down this morning. Still having fevers. Will see if they improve over the next day. May try to wean from vent with hope for extubation tomorrow. Continue bowel rest, TPN, IV abx, lovenox, PPI, etc. Replace K. 05/08/18: POD#10. Continued improvement but continued fevers. WBC still normal , bands decreasing. Will wean vent/sedation, hope to extubate today. Will have Dr. Husain, ENT consult regarding severe sinusitis on CT. Continue TPN, IV abx, lovenox, PPI, etc. 05/09/18: POD#11. Extubated yesterday. WBC up a little bit with continued fevers but he denies any abdominal pain. Abdominal exam indeterminate since I repaired several ventral hernias (suture repair only) but his abdomen is firm where these have been repaired but he denies TTP. Dr. Husain only recommended afrin nasal spray for sinusitis and NG removed so this should help drainage. Continue bowel rest and TPN until bowel function returns. Hospitalist has stopped vancomycin and fluconazole and he remains only on primaxin at this point , will need to follow this. New blood and urine cultures are pending. Will get PT/OT to see patient and start working with him today. [place] out of incision later this week. Continue Lovenox and PPI. 05/10/18: POD#12. Doing much better today. WBC back down to normal. Still having low grade fevers overnight, just over 100F. Abdomen is soft and nontender, very benign this morning. Passing flatus so will start clear diet. D/C juárez today. Continue primaxin until afebrile for 24 hours and normal WBC. Continue TPN until tolerating diet. Continue PT/OT, ambulation, IS, pulmonary hygiene, lovenox, PPI. If he does OK then he could transfer to Med/ Surg later today or tomorrow. 05/11/18: POD#13. Doing better, now with bowel activity. Will start regular diet and stop TPN today. Fevers better but WBC up a little this morning to 13K , will need to follow this. Abdominal exam is benign. Will remove lupis tomorrow. Transfer to Med/Surg today. Continue Primaxin until afebrile for 24 hours and normal WBC. Continue PT/OT, ambulation, IS pulmonary hygiene, lovenox , PPI. Will convert meds to PO. 05/12/18: POD#14. Continued improvement. [place] removed today. There is a localized infected seroma that I drained. We will start wound care on this. Continue regular diet. We'll switch Primaxin to oral Augmentin. Abdominal exam is benign. He could potentially go home tomorrow if he continues to do well today. 05/13/18: POD#15. Wound issues; no progression; Continues on Augmentin with resolved leukocytosis. Zahraa diet. Abd exam benign (2) Fever Status: Acute Assessment & Plan: Resolved (3) Aspiration pneumonia due to vomit Status: Acute Assessment & Plan: Resolved sxs (4) Wound infection after surgery Status: Acute Assessment & Plan: 05/12/18: Will initiate wound care. 05/13/18: No significant drainage. On Augmentin; No cellulitis or other induration ; tract still open (5) Leukocytosis Status: Resolved Assessment & Plan: 05/13/18: WBC has normalized; remains on ABX- will plan for additional 5 days Augmentin (6) Hypoxia Status: Acute Assessment & Plan: 05/13/18: Continues to require 1 liters N/C O2 to maintain sats> 92% but the pt refuses to take home with him or to use at home Central Venous Access Medical Necessity for Access: Hemodynamic Monitoring, IV Access, Medication Administration Condition Will D/C to home with Augmentin x 5 days. No additional pain meds required per pt. He refuses supplemental O2 despite our concerns expressed. Time Spent: > 30 min (Exam, Counseling, Documentation) Exam Sepsis Risk: Sepsis Risk Problem Qualifiers (1) Fever: Fever type: post-procedural Qualified Codes: R50.82 - Postprocedural fever (2) Aspiration pneumonia due to vomit: Laterality: bilateral (3) Wound infection after surgery: Encounter type: subsequent encounter Qualified Codes: T81.4XXD - Infection following a procedure, subsequent encounter WILLEM TOVAR MD May 13, 2018 09:00
[2018-05-13] MEDS ORDERED: OXYGENHOME INH (09:02)
[2018-05-13] MEDS ORDERED: AMOX-559 PO (09:02)
--- NOTE | 2018-05-13 09:05 | Hospitalist Depart ---
Discharge Summary Reason for Hosp/Final Diag: (1) SBO (small bowel obstruction) Status: Acute Hospital Course & Plan: 04/25/18: This is his 1st small bowel obstruction. The ventral/incisional hernia is reducible so if this was the cause of the obstruction, he should improve fairly rapidly. Adhesions are also a strong possibility given his history of colon resection for colon cancer. We will start managing this conservatively with NG tube decompression and bowel rest as well as IV fluids. He seems to be very dehydrated based on his labs and so we' ll resuscitate him with crystalloid. If he fails to improve after 48-72 hours then he may need surgical exploration. I have explained this plan to him in great detail and he seems to understand and seems agreeable with this plan. We' ll start Lovenox for DVT prophylaxis and Protonix for GI prophylaxis. We will use intermittent Dilaudid as well as when necessary IV Tylenol and Toradol for pain control. 04/26/18: Doing better clinically. No flatus or BM yet. KUB unchanged. Continue resuscitation, bowel rest and decompression, IV fluids. Pain control, pulmonary hygiene, lovenox, PPI. 04/27/18: Seems to be improving. KUB with improving but still dilated loops of small bowel. Will get a water soluble SBFT today. NG tube removed last night at patient request after warning him that it may have to be replaced if his obstruction worsens. Continue bowel rest, IV fluids, etc. 04/28/18: No improvement, worse since SBFT. Contrast has not passed obstruction. Will proceed with ex-lap today to look for cause of obstruction and treat it. Will also need to address the hernia(s) and how I do this depends on whether bowel resection is necessary. I have explained surgery, alternatives, risks, recovery to the patient and his questions have been answered. He would like to proceed with surgery. Will place central line as well so we can start TPN postop. 04/29/18: POD#1 s/p bronchoscopy, ex-lap, small bowel resection, primary repair of several abdominal wall hernias, liver biopsy, central line placement. Stable overnight but hyperdynamic with mild tachycardia and mild fevers. Likely aspirated bile after induction. Will keep intubated today and let him physiologically recover. Will continue fluid recuscitation today. Continue IV abx, unasyn and vanco. Continue TPN. PPI and lovenox for prophylaxis. Will get PT/OT to see him once extubated. 04/30/18: POD#2. Tachycardic and hypoxic. Physiologic response to surgery and likely bile aspiration and now with likely chemical pneumonitis. Will increase PEEP to 10. CVP up to 15, could consider diuresis especially given fluffy appearance of lungs on CXR this morning. May also consider steroids for pneumonitis but he has an anastomosis and healing of this could be adversely affected by steroids. ABG is improving and base deficit is now normal. Will continue intubation/mech. ventilation until his inflammatory response improves and then, hopefully tomorrow, on POD#3 when he should start mobilizing 3rd spaced fluids, we can help him diurese and dry his lungs out a little, as much as his cardiovascular system will tolerate. Continue TPN, lovenox, PPI, IV abx. 05/01/18: POD#3. Improved HR. Pressures in high 90s systolic but now on propofol gtt for improved sedation/comfort. SaO2 in low 90s on 95%fiO2 and PEEP 10. CVP 8 this morning. Discussed with Hospitalist service. Will gently diurese him today and see how his BP tolerates this. Hopefully with help dry his lungs out and improve oxygenation/ventilation. Fluid status much improved, should start mobilizing 3rd space fluid today, already with increased UOP. Continue intubation/mech ventilation until pulmonary status improves. Continue TPN, lovenox, PPI, IV abx. Hospitalist changing abx coverage from unasyn to primaxin/vanco. Continue ICU care. 05/02/18: POD#4. Improving. HR normal. SBP in 90s on proprofol gtt. Oxygenation is improving, now on PEEP 12 and FiO2. CXR with improved aeration this morning but still with signs of infiltrate in bases c/w aspiration as well as pulmonary edema. Continue intubation/sedation/ventilation today. He is self -diuresing at this point. Will plan on weaning from vent when his settings can be weaned to minimal support settings, hopefully in the next couple of days. Continue TPN, IV abx, lovenox, PPI. 05/03/18: POD#5. Continued improvement. HR normal. SBP in low 100s. Oxygenation is improving, now on PEEP 5. He becomes very agitated when sedation is weaned and he desats and becomes very tachypneic. Will need to continue sedation holidays and let him work on the vent. CXR still with signs of pulmonary edema but he's auto diuresing. Replace K today. Continue intubation/ventilation today and will start checking daily weaning parameters. Continue TPN, IV abx, lovenox, PPI. 05/04/18: POD#6. Stable but still having fevers and WBC has leveled off at 14K on primaxin and vancomycin. If fevers and WBC don't improve by tomorrow morning then will get a CT abd/pelvis tomorrow. CXR pending. Low K, replace. Cotinue daily sedation holidays and vent weaning measures but won't plan to extubate until at least tomorrow after we know if fevers/WBC improve or CT reveals no need for reoperation (i.e. no anastomotic leak or abscess). Could also consider adding antifungal coverage to abx. Cotinue primaxin/vanco, TPN, lovenox, PPI. 05/05/18: POD#7. Continued fevers and leukocytosis. ICU staff are noticing "a lot" of oral secretions. Will get a CT chest/abdomen/pelvis and sinuses today. Continue IV abx, TPN, lovenox, PPI. If CT scans unremarkable (i.e. no anastomotic leak of fluid collections/abscess) then will work on weaning from vent with hope for extubation in next day or two, if possible. 05/06/18: POD#8. CT yesterday reveals sinusitis and some fluid collections adjacent and in his abdominal wall, likely seromas related to surgery and his incisional hernia repairs. No obvious signs of anastomotic leak but motion artifact obscures the images to some degree. Improving from respiratory standpoint but still having fevers. WBC slowly coming down but was 11K yesterday and this morning. Will follow this. Continue bowel rest, TPN, IV abx. I would like to see fevers and WBC normalize before extubating him. Continue lovenox, PPI, etc. 05/07/18: POD#9. Seems to be doing a little better. WBC is down this morning. Still having fevers. Will see if they improve over the next day. May try to wean from vent with hope for extubation tomorrow. Continue bowel rest, TPN, IV abx, lovenox, PPI, etc. Replace K. 05/08/18: POD#10. Continued improvement but continued fevers. WBC still normal , bands decreasing. Will wean vent/sedation, hope to extubate today. Will have Dr. Husain, ENT consult regarding severe sinusitis on CT. Continue TPN, IV abx, lovenox, PPI, etc. 05/09/18: POD#11. Extubated yesterday. WBC up a little bit with continued fevers but he denies any abdominal pain. Abdominal exam indeterminate since I repaired several ventral hernias (suture repair only) but his abdomen is firm where these have been repaired but he denies TTP. Dr. Husain only recommended afrin nasal spray for sinusitis and NG removed so this should help drainage. Continue bowel rest and TPN until bowel function returns. Hospitalist has stopped vancomycin and fluconazole and he remains only on primaxin at this point , will need to follow this. New blood and urine cultures are pending. Will get PT/OT to see patient and start working with him today. [place] out of incision later this week. Continue Lovenox and PPI. 05/10/18: POD#12. Doing much better today. WBC back down to normal. Still having low grade fevers overnight, just over 100F. Abdomen is soft and nontender, very benign this morning. Passing flatus so will start clear diet. D/C juárez today. Continue primaxin until afebrile for 24 hours and normal WBC. Continue TPN until tolerating diet. Continue PT/OT, ambulation, IS, pulmonary hygiene, lovenox, PPI. If he does OK then he could transfer to Med/ Surg later today or tomorrow. 05/11/18: POD#13. Doing better, now with bowel activity. Will start regular diet and stop TPN today. Fevers better but WBC up a little this morning to 13K , will need to follow this. Abdominal exam is benign. Will remove lalo tomorrow. Transfer to Med/Surg today. Continue Primaxin until afebrile for 24 hours and normal WBC. Continue PT/OT, ambulation, IS pulmonary hygiene, lovenox , PPI. Will convert meds to PO. 05/12/18: POD#14. Continued improvement. [place] removed today. There is a localized infected seroma that I drained. We will start wound care on this. Continue regular diet. We'll switch Primaxin to oral Augmentin. Abdominal exam is benign. He could potentially go home tomorrow if he continues to do well today. 05/13/18: POD#15. Wound issues; no progression; Continues on Augmentin with resolved leukocytosis. Zahraa diet. Abd exam benign (2) Fever Status: Acute Hospital Course & Plan: Resolved (3) Aspiration pneumonia due to vomit Status: Acute Hospital Course & Plan: Resolved sxs (4) Wound infection after surgery Status: Acute Hospital Course & Plan: 05/12/18: Will initiate wound care. 05/13/18: No significant drainage. On Augmentin; No cellulitis or other induration ; tract still open (5) Leukocytosis Status: Resolved Hospital Course & Plan: 05/13/18: WBC has normalized; remains on ABX- will plan for additional 5 days Augmentin (6) Hypoxia Status: Acute Hospital Course & Plan: 05/13/18: Continues to require 1 liters N/C O2 to maintain sats> 92% but the pt refuses to take home with him or to use at home Departure Weight (Pounds): 210 Weight (Ounces): 8.0 Result Diagram: 05/13/1852905/13/18 0530 Condition: Improved Discharge: Home Discharge Code Status: Full Code Treatments: Wound Care, Other (Home O2 to maintain saturation > 92%) Discharge Instructions Home Meds Active Scripts Oxygen (OXYGEN) Inha, 1 L INH DIRECTED for 7 Days, L Prov:WILLEM TOVAR MD 05/13/18 Amoxicillin/Pot Clav 875-125 Mg Tab (AUGMENTIN 875-125 TABLET) 1 Each Tablet, 1 TAB PO Q12H for 5 Days, #10 TAB 0 Refills Prov:WILLEM TOVAR MD 05/13/18 Reported Medications Venlafaxine Hcl (EFFEXOR XR) 150 Mg Cap.er.24h, 300 MG PO QDAY 05/09/18 Discontinued Reported Medications Venlafaxine Hcl (EFFEXOR XR) 75 Mg Cap.er.24h, 300 MG PO QDAY 02/11/17 Diet: Regular Activity: As Tolerated, No Heavy Lifting Special Instructions: No lifting greater than 20 pounds x 6 weeks Keep skin wound open, covered twice daily. May shower twice daily but avoid baths or hottubs until skin wound is well closed Continue Augmentin oral antibiotic x [address] Fernandez on 19 May at 1200 noon for wound check; call sooner for new problems Copies to: BEATRIZ FERNANDEZ MD Venous Thromboembolism Antithrombotics Is Pt On Any Antithrombotics?: No Problem Qualifiers (1) Fever: Fever type: post-procedural Qualified Codes: R50.82 - Postprocedural fever (2) Aspiration pneumonia due to vomit: Laterality: bilateral (3) Wound infection after surgery: Encounter type: subsequent encounter Qualified Codes: T81.4XXD - Infection following a procedure, subsequent encounter WILLEM TOVAR MD May 13, 2018 09:05
[2018-05-13] MEDS: PANTOPRAZOLE SOD 40 MG TABEC PO SCH (09:15)
[2018-05-13] MEDS: AMOX/CLAV 875 MG TAB PO SCH (09:15)
[2018-05-13] MEDS: VENLAFAXINE XR 75 MG CAPCR PO SCH (09:16)
[2018-05-13] MEDS: POTASSIUM CHL 10 MEQ TABCR PO SCH (09:16)
[2018-05-13] MEDS: ENOXAPARIN 40 MG/0.4ML SYR SC SCH (09:16)
== END 2018-05-13 10:30 | disposition home or self-care (01) | DRG 329 ==
LOC: ER 14:19 → MED 17:47 → ICU 04-28 19:40 → MED 05-11 17:38
PROVIDERS: ADMIT Surgery; ATTEND Surgery
PROC: 0W3G0ZZ Control Bleeding in Peritoneal Cavity, Open Approach (ICD-10-PCS; 2018-04-28)
PROC: 0FB00ZX Excision of Liver, Open Approach, Diagnostic (ICD-10-PCS; 2018-04-28)
PROC: 0FB00ZX Excision of Liver, Open Approach, Diagnostic (ICD-10-PCS; 2018-04-28)
PROC: 05HM33Z Insertion of Infusion Device into Right Internal Jugular Vein, Percutaneous Approach (ICD-10-PCS; 2018-04-28)
PROC: 5A1955Z Respiratory Ventilation, Greater than 96 Consecutive Hours (ICD-10-PCS; 2018-04-28)
PROC: 0DB80ZZ Excision of Small Intestine, Open Approach (ICD-10-PCS; principal; 2018-04-28 14:52)
PROC: 0B9 Respiratory System, Drainage (ICD-10-PCS; 2018-04-28 14:52)
PROC: 0DN80ZZ Release Small Intestine, Open Approach (ICD-10-PCS; 2018-04-28 14:52)
DX: K56.50 Intestinal adhesions [bands], unspecified as to partial versus complete obstruction (principal); J69.0 Pneumonitis due to inhalation of food and vomit; J96.01 Acute respiratory failure with hypoxia; J81.0 Acute pulmonary edema; K43.0 Incisional hernia with obstruction, without gangrene; C78.7 Secondary malignant neoplasm of liver and intrahepatic bile duct; L76.34 Postprocedural seroma of skin and subcutaneous tissue following other procedure; K76.89 Other specified diseases of liver; T88.59XA Other complications of anesthesia, initial encounter; Y83.8 Other surgical procedures as the cause of abnormal reaction of the patient, or of later complication, without mention of misadventure at the time of the procedure; Y73.3 Surgical instruments, materials and gastroenterology and urology devices (including sutures) associated with adverse incidents; Y92.234 Operating room of hospital as the place of occurrence of the external cause; F17.210 Nicotine dependence, cigarettes, uncomplicated; F32.9 Major depressive disorder, single episode, unspecified; F43.21 Adjustment disorder with depressed mood; G62.9 Polyneuropathy, unspecified; E86.0 Dehydration; I95.2 Hypotension due to drugs; T41.295A Adverse effect of other general anesthetics, initial encounter; R73.9 Hyperglycemia, unspecified; E87.70 Fluid overload, unspecified; J01.20 Acute ethmoidal sinusitis, unspecified; J01.00 Acute maxillary sinusitis, unspecified; J01.30 Acute sphenoidal sinusitis, unspecified; D72.829 Elevated white blood cell count, unspecified; Z92.21 Personal history of antineoplastic chemotherapy; Z85.038 Personal history of other malignant neoplasm of large intestine
CPT/HCPCS: 36415; 36416; 36600; 70486; 71045; 71260; 74018; 74022; 74176; 74177; 74250; 80202; 82040; 82150; 82247; 82248; 82310; 82374; 82435; 82565; 82803; 82947; 82948; 83605; 83690; 83735; 84075; 84100; 84132; 84155; 84295; 84450; 84460; 84520; 85025; 87040; 87070; 87077; 87088; 87103; 87186; 87205; 87324; 87449; 88305; 88307; 88313; 94002; 94003; 94640; 94770; 96361; 96374; 96375; 97162; 97166; 99285; C9113; J0131; J0295; J0330; J0743; J1100; J1170; J1450; J1642; J1644; J1650; J1815; J1885; J1940; J2250; J2270; J2405; J2550; J2704; J2795; J3010; J3370; J3480; J7030; J7040; J7050; J7120; P9045; Q9967